=== PATIENT | female | born 1960 | race Two or more races ===

== ENCOUNTER 2020-05-26 23:53 | Emergency (ER) | payer MEDICAID, OTHER ==
[~2020-05-26] VITALS: Ht 157.5 cm; Wt 79.4 kg
[2020-05-26 23:58] VITALS: BP 130/73
[2020-05-27] MEDS ORDERED: cefTRIAXone SOD 1,000 MG VL IM ONE (03:15)
[2020-05-27] MEDS ORDERED: ACETAMINOPHEN 500 MG TAB PO ONE (03:15)
[2020-05-27 04:01] LABS: Urine Bacteria MOD /hpf (None Seen); Urine Blood Negative /uL (Negative); Urine Mucus FEW (None Seen); Urine Specific Gravity 1.014 (1.001-1.035); Urine WBC 85 /hpf (0 - 5)
== END 2020-05-27 05:00 | disposition home or self-care (01) ==
LOC: ER 23:53
DX: T83.038A Leakage of other urinary catheter, initial encounter (principal); N34.2 Other urethritis; E66.9 Obesity, unspecified; Z46.6 Encounter for fitting and adjustment of urinary device; Z68.32 Body mass index [BMI] 32.0-32.9, adult
CPT/HCPCS: 51702; 81001; 96372; 99284; J0696

== ENCOUNTER 2020-06-17 11:37 | Emergency (ER) | payer MEDICAID ==
[~2020-06-17] VITALS: Ht 157.5 cm; Wt 79.4 kg
[2020-06-17 11:55] VITALS: BP 121/68
== END 2020-06-17 13:53 | disposition home or self-care (01) ==
LOC: ER 11:37
DX: F31.9 Bipolar disorder, unspecified (principal); Z76.0 Encounter for issue of repeat prescription

== ENCOUNTER 2020-07-17 18:48 | Inpatient (IN) | payer MEDICAID ==
[~2020-07-17] VITALS: Ht 157.5 cm; Wt 96.1 kg
[2020-07-17] MEDS ORDERED: SODIUM CHLORIDE 0.9% 1,000 ML IV ONE ×2 (19:30→22:00)
[2020-07-17 20:00] LABS: Basophils # (auto) 0.1 10 ^3/uL (0-0.2); Basophils % (auto) 0.6 % (0.0-2.0); Eosinophils # (auto) 0.2 10 ^3/uL (0-0.8); Eosinophils % (auto) 1.6 % (0.0-7.0); Hematocrit 38.5 % (36.0-46.0); Hemoglobin 12.8 g/dL (12.2-16.2); Lymphocytes # (auto) 4.7 10 ^3/uL (0.4-5.4); Lymphocytes % (auto) 47.8 % (10.0-50.0); Mean Corpuscular Hemoglobin 27.8 pg (28.0-32.0); Mean Corpuscular Hgb Conc. 33.3 g/dL (32.0-36.0); Mean Corpuscular Volume 83.5 fL (80.0-100.0); Monocytes # (auto) 0.9 10 ^3/uL (0-1.3); Monocytes % (auto) 8.9 % (0.0-12.0); Neutrophils # (auto) 4.1 10 ^3/uL (1.6-8.6); Neutrophils % (auto) 41.1 % (37.0-80.0); Nucleated Red Blood Cells % 0.2 %; Platelet Count (auto) 221 10^3/uL (140-450); Red Blood Cells 4.61 10^6/uL (4.0-5.20); Red Cell Distribution Width 15.2 % (11.8-14.3); White Blood Cell 9.9 10^3/uL (4.4-10.8)
[2020-07-17] MEDS ORDERED: fentaNYL CITRATE 100 MCG/2 ML VL IV ONE (20:00)
[2020-07-17] MEDS ORDERED: ONDANSETRON HCL 4 MG/2 ML VIAL IV ONE (20:00)
[2020-07-17 20:22] LABS: Albumin 3.3 g/dL (3.4-5.0); Anion Gap 11 (5-15); Blood Urea Nitrogen 21 mg/dL (7-18); Calcium 9.2 mg/dL (8.5-10.1); Carbon Dioxide 22 mmol/L (21-32); Chloride 109 mmol/L (98-107); Glucose 106 mg/dL (74-106); Lipase 88 U/L (73-393); Magnesium 2.2 mg/dL (1.6-2.6); Potassium 4.1 mmol/L (3.5-5.1); Sodium 142 mmol/L (136-145)
[2020-07-17 20:26] LABS: Lactic Acid w/Reflex 4.6 mmol/L (0.4-2.0)
[2020-07-17 20:28] LABS: Alanine Aminotransferase 13 U/L (13-56); Alkaline Phosphatase 79 U/L (45-117); Aspartate Aminotransferase 15 U/L (15-37); BUN/Creatinine Ratio 24.1; Bilirubin, Total 0.3 mg/dL (0.2-1.0); GFR African American 85 mL/min; GFR Non-African American 71 mL/min
[2020-07-17 20:36] LABS: Urine Bacteria NONE SEEN /hpf (None Seen); Urine Blood 3+ /uL (Negative); Urine Specific Gravity 1.007 (1.001-1.035); Urine WBC 118 /hpf (0 - 5); Urine WBC Clumps PRESENT /hpf (None Seen)
[2020-07-17] MEDS ORDERED: CEFTRIAXONE SODIUM 2 GM in D5W 5% 50 ML IV ONE (21:00)
[2020-07-17] MEDS ORDERED: levoFLOXacin 750MG 150 ML IV ONE (21:15)
[2020-07-17] MEDS ORDERED: NITROGLYCERIN 0.4 MG SL TAB SL PRN (22:00)
[2020-07-17] MEDS ORDERED: ONDANSETRON HCL 4 MG/2 ML VIAL IV PRN (22:00)
[2020-07-17] MEDS ORDERED: MORPHINE SULF INJ 2 MG/ML SYRINGE 1ML IV PRN (22:00)
[2020-07-17] MEDS ORDERED: cefTRIAXone 1GM/50ML D5W 50 ML IV ONE (22:54)
[2020-07-17] MEDS: cefTRIAXone 1GM/50ML D5W 50 ML IV SCH (23:13)
[2020-07-18] MEDS ORDERED: ACETAMINOPHEN 325 MG TAB PO PRN (04:00)
[2020-07-18 06:44] LABS: Basophils # (auto) 0.1 10 ^3/uL (0-0.2); Basophils % (auto) 0.8 % (0.0-2.0); Eosinophils # (auto) 0.2 10 ^3/uL (0-0.8); Eosinophils % (auto) 2.2 % (0.0-7.0); Hematocrit 33.4 % (36.0-46.0); Hemoglobin 11.3 g/dL (12.2-16.2); Lymphocytes # (auto) 2.8 10 ^3/uL (0.4-5.4); Lymphocytes % (auto) 37.3 % (10.0-50.0); Mean Corpuscular Hemoglobin 28.3 pg (28.0-32.0); Mean Corpuscular Hgb Conc. 33.9 g/dL (32.0-36.0); Mean Corpuscular Volume 83.5 fL (80.0-100.0); Monocytes # (auto) 0.7 10 ^3/uL (0-1.3); Monocytes % (auto) 9.5 % (0.0-12.0); Neutrophils # (auto) 3.8 10 ^3/uL (1.6-8.6); Neutrophils % (auto) 50.2 % (37.0-80.0); Nucleated Red Blood Cells % 0.1 %; Platelet Count (auto) 195 10^3/uL (140-450); Red Cell Distribution Width 14.7 % (11.8-14.3); White Blood Cell 7.6 10^3/uL (4.4-10.8)
[2020-07-18 07:02] LABS: BUN/Creatinine Ratio 20.7; Calcium 8.6 mg/dL (8.5-10.1); Potassium 4.2 mmol/L (3.5-5.1)
[2020-07-18 08:58] VITALS: BP 124/58
[2020-07-18] MEDS: ENOXAPARIN SOD 40 MG/0.4 ML SYRINGE SC SCH ×2 (09:32→10:13)
[2020-07-18] MEDS ORDERED: HYDROcodone-ACET 5/325MG TAB PO PRN (09:45)
[2020-07-18] MEDS ORDERED: GABA300C10 PO (09:54)
[2020-07-18] MEDS ORDERED: PANT40T PO (09:54)
[2020-07-18] MEDS ORDERED: TRAZ50TA2 PO (09:54)
[2020-07-18] MEDS ORDERED: RIS1T PO ×2 (09:54)
[2020-07-18] MEDS ORDERED: DIVA250T4 PO ×2 (09:54)
[2020-07-18] MEDS ORDERED: LEVO25TA6 PO (09:54)
[2020-07-18] MEDS: cefTRIAXone 1GM/50ML D5W 50 ML IV SCH (10:14)
[2020-07-18 12:30] VITALS: BP 123/56
[2020-07-18 16:30] VITALS: BP 136/71
[2020-07-18] MEDS ORDERED: LEVO500T31 PO (18:21)
[2020-07-18 18:25] VITALS: BP 136/71
== END 2020-07-18 19:02 | disposition home health service (06) | DRG 466 ==
LOC: ER 18:48 → TELE 22:06 → TELE-EAST 07-18 08:45 → TELE-CENTR 07-18 11:38
PROVIDERS: ADMIT Hospitalist; ATTEND Hospitalist
PROC: 0T2BX0Z Change Drainage Device in Bladder, External Approach (ICD-10-PCS; principal; 2020-07-17)
DX: T83.511A Infection and inflammatory reaction due to indwelling urethral catheter, initial encounter (principal); G62.9 Polyneuropathy, unspecified; Z20.822 Contact with and (suspected) exposure to COVID-19; E03.9 Hypothyroidism, unspecified; F31.9 Bipolar disorder, unspecified; R53.81 Other malaise; G89.29 Other chronic pain; N39.498 Other specified urinary incontinence; F41.9 Anxiety disorder, unspecified; Z83.3 Family history of diabetes mellitus; Z99.3 Dependence on wheelchair; Z88.8 Allergy status to other drugs, medicaments and biological substances
CPT/HCPCS: 36415; 51702; 80048; 80053; 81001; 83605; 83690; 83735; 84484; 85025; 87040; 87086; 87088; 87186; 87426; 93005; 96361; 96365; 96366; 96375; G0378; J0696; J1956; J2405; J7060

== ENCOUNTER 2021-06-29 20:38 | Emergency (ER) | payer MEDICAID ==
[~2021-06-29] VITALS: Ht 157.5 cm; Wt 113.4 kg
[~2021-06-29 20:38] MED LIST: DIVA250T4 PO; GABA300C10 PO; LEVO25TA6 PO; LEVO500T31 PO; PANT40T PO; RIS1T PO; TRAZ50TA2 PO
[2021-06-29] MEDS ORDERED: SODIUM CHLORIDE 0.9% 500 ML IV ONE (21:00)
[2021-06-29 21:59] LABS: Basophils # (auto) 0 10 ^3/uL (0-0.2); Basophils % (auto) 0.6 % (0.0-2.0); Eosinophils # (auto) 0.2 10 ^3/uL (0-0.8); Eosinophils % (auto) 2.4 % (0.0-7.0); Hematocrit 38.2 % (36.0-46.0); Hemoglobin 12.8 g/dL (12.2-16.2); Lymphocytes # (auto) 3.8 10 ^3/uL (0.4-5.4); Lymphocytes % (auto) 43.8 % (10.0-50.0); Mean Corpuscular Hemoglobin 28.7 pg (28.0-32.0); Mean Corpuscular Hgb Conc. 33.6 g/dL (32.0-36.0); Mean Corpuscular Volume 85.5 fL (80.0-100.0); Monocytes # (auto) 0.9 10 ^3/uL (0-1.3); Neutrophils # (auto) 3.7 10 ^3/uL (1.6-8.6); Neutrophils % (auto) 43.2 % (37.0-80.0); Nucleated Red Blood Cells % 0.3 %; Red Blood Cells 4.47 10^6/uL (4.0-5.20); Red Cell Distribution Width 15.1 % (11.8-14.3); White Blood Cell 8.6 10^3/uL (4.4-10.8)
[2021-06-29 22:04] LABS: Urine Amorphous Crystal FEW /hpf (None Seen); Urine Bacteria MANY /hpf (None Seen); Urine Blood 1+ /uL (Negative); Urine Specific Gravity 1.006 (1.001-1.035); Urine WBC 14 /hpf (0 - 5)
[2021-06-29 22:17] LABS: Albumin 3.2 g/dL (3.4-5.0); Calcium 9.3 mg/dL (8.5-10.1); Potassium 3.8 mmol/L (3.5-5.1)
[2021-06-29 22:20] LABS: BUN/Creatinine Ratio 25.3
[2021-06-29 22:23] LABS: Bilirubin, Total 0.2 mg/dL (0.2-1.0); Total Protein 7.3 g/dL (6.4-8.2)
[2021-06-30] MEDS ORDERED: CEPH-322 PO (00:32)
[2021-06-30 00:50] VITALS: BP 111/70
== END 2021-06-30 01:24 | disposition home or self-care (01) ==
LOC: ER 20:38
DX: Z46.6 Encounter for fitting and adjustment of urinary device (principal); N39.0 Urinary tract infection, site not specified; E03.9 Hypothyroidism, unspecified; Z79.899 Other long term (current) drug therapy; Z88.8 Allergy status to other drugs, medicaments and biological substances
CPT/HCPCS: 36415; 80053; 81001; 85025; 93970; 96360; 99284; J7040

== ENCOUNTER 2022-04-05 14:38 | Emergency (ER) | payer MEDICAID ==
[~2022-04-05] VITALS: Ht 157.5 cm; Wt 89.0 kg
[~2022-04-05 14:38] MED LIST changes: +CEPH-322 PO
[2022-04-05 20:02] VITALS: BP 154/84
== END 2022-04-05 20:04 | disposition home or self-care (01) ==
LOC: ER 14:44
DX: Z46.6 Encounter for fitting and adjustment of urinary device (principal); E03.9 Hypothyroidism, unspecified; Z79.2 Long term (current) use of antibiotics; Z79.899 Other long term (current) drug therapy; Z88.8 Allergy status to other drugs, medicaments and biological substances
CPT/HCPCS: 51702

== ENCOUNTER 2022-06-04 19:42 | Inpatient (IN) | payer MEDICAID ==
[~2022-06-04] VITALS: Ht 157.5 cm; Wt 111.9 kg
[2022-06-04 20:44] LABS: Urine Bacteria MANY /hpf (None Seen); Urine Blood 1+ /uL (Negative); Urine Mucus FEW (None Seen); Urine Specific Gravity 1.023 (1.001-1.035); Urine WBC 133 /hpf (0 - 5)
[2022-06-05] MEDS ORDERED: cefTRIAXone 1GM/50ML D5W 50 ML IV ONE (07:15)
[2022-06-05 07:50] LABS: Basophils # (auto) 0 10 ^3/uL (0-0.2); Basophils % (auto) 0.5 % (0.0-2.0); Eosinophils # (auto) 0.2 10 ^3/uL (0-0.8); Eosinophils % (auto) 1.7 % (0.0-7.0); Hematocrit 45.6 % (36.0-46.0); Hemoglobin 15.2 g/dL (12.2-16.2); Lymphocytes # (auto) 4.6 10 ^3/uL (0.4-5.4); Lymphocytes % (auto) 49.3 % (10.0-50.0); Mean Corpuscular Hemoglobin 29.4 pg (28.0-32.0); Mean Corpuscular Hgb Conc. 33.4 g/dL (32.0-36.0); Mean Corpuscular Volume 87.9 fL (80.0-100.0); Monocytes % (auto) 10.2 % (0.0-12.0); Neutrophils # (auto) 3.6 10 ^3/uL (1.6-8.6); Neutrophils % (auto) 38.3 % (37.0-80.0); Nucleated Red Blood Cells % 0.2 %; Red Blood Cells 5.19 10^6/uL (4.0-5.20); Red Cell Distribution Width 14.8 % (11.8-14.3); White Blood Cell 9.4 10^3/uL (4.4-10.8)
[2022-06-05 08:03] LABS: Albumin 3.8 g/dL (3.4-5.0); Calcium 8.8 mg/dL (8.5-10.1); Potassium 3.9 mmol/L (3.5-5.1)
[2022-06-05 08:07] LABS: BUN/Creatinine Ratio 22.9; Bilirubin, Total 0.6 mg/dL (0.2-1.0)
[2022-06-05] MEDS ORDERED: ACETAMINOPHEN 500 MG TAB PO PRN (16:15)
[2022-06-05] MEDS: HYDROcodone-ACET 5/325MG TAB PO PRN (16:32)
[2022-06-05] MEDS: SODIUM CHLORIDE 0.9% 1,000 ML IV SCH (16:32)
[2022-06-05 18:42] LABS: Urine Bacteria MOD /hpf (None Seen); Urine Blood 1+ /uL (Negative); Urine Mucus FEW (None Seen); Urine Specific Gravity 1.022 (1.001-1.035); Urine WBC 191 /hpf (0 - 5)
[2022-06-05] MEDS: risperiDONE 1 MG TAB PO SCH (19:51)
[2022-06-05] MEDS: MORPHINE SULFATE INJ 2 MG/ml SYRG IV PRN (19:52)
[2022-06-05] MEDS: DOCUSATE SOD 100 MG CAP PO SCH (22:23)
[2022-06-05] MEDS: traZODone HCL 50 MG TAB PO SCH (22:24)
[2022-06-06] MEDS: ONDANSETRON HCL 4 MG/2 ML VIAL IV PRN (00:07)
[2022-06-06] MEDS: MORPHINE SULFATE INJ 2 MG/ml SYRG IV PRN (00:08)
[2022-06-06] MEDS: SODIUM CHLORIDE 0.9% 1,000 ML IV SCH ×2 (05:29→22:41)
[2022-06-06] MEDS: LEVOTHYROXINE SODIUM 25 MCG TAB PO SCH (06:58)
[2022-06-06 08:39] LABS: Basophils # (auto) 0 10 ^3/uL (0-0.2); Basophils % (auto) 0.7 % (0.0-2.0); Eosinophils # (auto) 0.2 10 ^3/uL (0-0.8); Eosinophils % (auto) 3.6 % (0.0-7.0); Hematocrit 40.1 % (36.0-46.0); Hemoglobin 13.5 g/dL (12.2-16.2); Lymphocytes # (auto) 2.5 10 ^3/uL (0.4-5.4); Mean Corpuscular Hemoglobin 29.7 pg (28.0-32.0); Mean Corpuscular Hgb Conc. 33.8 g/dL (32.0-36.0); Mean Corpuscular Volume 88.1 fL (80.0-100.0); Monocytes # (auto) 0.7 10 ^3/uL (0-1.3); Monocytes % (auto) 12.4 % (0.0-12.0); Neutrophils % (auto) 37.3 % (37.0-80.0); Nucleated Red Blood Cells % 0.3 %; Red Blood Cells 4.55 10^6/uL (4.0-5.20); Red Cell Distribution Width 14.9 % (11.8-14.3); White Blood Cell 5.4 10^3/uL (4.4-10.8)
[2022-06-06 10:13] LABS: BUN/Creatinine Ratio 18.9; Calcium 8.1 mg/dL (8.5-10.1); Potassium 3.8 mmol/L (3.5-5.1)
[2022-06-06] MEDS: ERTAPENEM SOD INJ 1 GM in SODIUM CHL 0.9% 50 ML IV SCH (10:51)
[2022-06-06] MEDS: DOCUSATE SOD 100 MG CAP PO SCH ×2 (10:51→22:12)
[2022-06-06] MEDS: risperiDONE 1 MG TAB PO SCH ×2 (10:52→18:06)
[2022-06-06] MEDS: HYDROcodone-ACET 5/325MG TAB PO PRN ×2 (14:21→20:41)
[2022-06-06 22:00] VITALS: BP 106/60
[2022-06-06] MEDS: traZODone HCL 50 MG TAB PO SCH (22:13)
[2022-06-07] MEDS: MORPHINE SULFATE INJ 2 MG/ml SYRG IV PRN ×2 (00:31→09:28)
[2022-06-07] MEDS ORDERED: CYCL-611 PO (01:29)
[2022-06-07] MEDS ORDERED: TRAZ100T3 PO (01:29)
[2022-06-07 05:00] VITALS: BP 120/64
[2022-06-07] MEDS: LEVOTHYROXINE SODIUM 25 MCG TAB PO SCH (06:35)
[2022-06-07] MEDS: HYDROcodone-ACET 5/325MG TAB PO PRN ×2 (06:35→13:32)
[2022-06-07 08:00] VITALS: BP 132/64
[2022-06-07] MEDS: ERTAPENEM SOD INJ 1 GM in SODIUM CHL 0.9% 50 ML IV SCH (09:24)
[2022-06-07] MEDS: DOCUSATE SOD 100 MG CAP PO SCH ×2 (09:25→21:37)
[2022-06-07] MEDS: risperiDONE 1 MG TAB PO SCH ×2 (09:26→17:58)
[2022-06-07 12:00] VITALS: BP 137/69
[2022-06-07] MEDS: SODIUM CHLORIDE 0.9% 1,000 ML IV SCH (12:10)
[2022-06-07] MEDS ORDERED: POLYETHYLENE GLYCOL 17 GM PWDR PO ONE (13:00)
[2022-06-07] MEDS: CYCLOBENZAPRINE HCL 10 MG TAB PO SCH ×2 (13:32→21:37)
[2022-06-07 16:00] VITALS: BP 135/66
[2022-06-07] MEDS: traZODone HCL 50 MG TAB PO SCH (21:37)
[2022-06-07 22:00] VITALS: BP 126/68
[2022-06-08] MEDS: MORPHINE SULFATE INJ 2 MG/ml SYRG IV PRN (00:44)
[2022-06-08] MEDS: SODIUM CHLORIDE 0.9% 1,000 ML IV SCH ×2 (00:44→18:36)
[2022-06-08 05:00] VITALS: BP 129/67
[2022-06-08] MEDS: LEVOTHYROXINE SODIUM 25 MCG TAB PO SCH (06:25)
[2022-06-08] MEDS: CYCLOBENZAPRINE HCL 10 MG TAB PO SCH ×3 (06:25→21:49)
[2022-06-08 09:00] VITALS: BP 131/76
[2022-06-08] MEDS: ERTAPENEM SOD INJ 1 GM in SODIUM CHL 0.9% 50 ML IV SCH (10:10)
[2022-06-08] MEDS: POLYETHYLENE GLYCOL 17 GM PWDR PO SCH (10:10)
[2022-06-08] MEDS: risperiDONE 1 MG TAB PO SCH ×2 (10:11→18:35)
[2022-06-08] MEDS: DOCUSATE SOD 100 MG CAP PO SCH ×2 (10:11→21:54)
[2022-06-08 13:00] VITALS: BP 127/58
[2022-06-08 17:00] VITALS: BP 128/74
[2022-06-08] MEDS: HYDROcodone-ACET 5/325MG TAB PO PRN (18:36)
[2022-06-08] MEDS: traZODone HCL 50 MG TAB PO SCH (21:49)
[2022-06-08 22:00] VITALS: BP 120/67
[2022-06-09] MEDS: SODIUM CHLORIDE 0.9% 1,000 ML IV SCH ×3 (00:15→22:01)
[2022-06-09] MEDS: MORPHINE SULFATE INJ 2 MG/ml SYRG IV PRN ×3 (00:55→20:58)
[2022-06-09 05:00] VITALS: BP 144/77
[2022-06-09] MEDS: CYCLOBENZAPRINE HCL 10 MG TAB PO SCH ×3 (05:55→21:56)
[2022-06-09] MEDS: LEVOTHYROXINE SODIUM 25 MCG TAB PO SCH (05:56)
[2022-06-09 09:00] VITALS: BP 122/75
[2022-06-09] MEDS: POLYETHYLENE GLYCOL 17 GM PWDR PO SCH (09:21)
[2022-06-09] MEDS: DOCUSATE SOD 100 MG CAP PO SCH ×2 (09:21→21:56)
[2022-06-09] MEDS: risperiDONE 1 MG TAB PO SCH ×2 (09:23→17:57)
[2022-06-09] MEDS: ERTAPENEM SOD INJ 1 GM in SODIUM CHL 0.9% 50 ML IV SCH (09:24)
[2022-06-09 13:00] VITALS: BP 138/72
[2022-06-09] MEDS: HYDROcodone-ACET 5/325MG TAB PO PRN (16:17)
[2022-06-09 17:00] VITALS: BP 137/79
[2022-06-09] MEDS: traZODone HCL 50 MG TAB PO SCH (21:57)
[2022-06-09 22:00] VITALS: BP 131/48
[2022-06-10 05:00] VITALS: BP 124/51
[2022-06-10] MEDS: CYCLOBENZAPRINE HCL 10 MG TAB PO SCH ×3 (05:09→22:27)
[2022-06-10] MEDS: HYDROcodone-ACET 5/325MG TAB PO PRN ×2 (05:09→12:49)
[2022-06-10] MEDS: LEVOTHYROXINE SODIUM 25 MCG TAB PO SCH (06:21)
[2022-06-10 09:00] VITALS: BP 129/73
[2022-06-10] MEDS: risperiDONE 1 MG TAB PO SCH ×2 (10:33→18:24)
[2022-06-10] MEDS: DOCUSATE SOD 100 MG CAP PO SCH ×2 (10:33→22:26)
[2022-06-10] MEDS: POLYETHYLENE GLYCOL 17 GM PWDR PO SCH (10:34)
[2022-06-10 13:00] VITALS: BP 119/74
[2022-06-10] MEDS: MORPHINE SULFATE INJ 2 MG/ml SYRG IV PRN ×2 (14:29→22:34)
[2022-06-10] MEDS: ERTAPENEM SOD INJ 1 GM in SODIUM CHL 0.9% 50 ML IV SCH (14:30)
[2022-06-10 15:26] LABS: Hepatitis C Antibody Negative (Negative)
[2022-06-10] MEDS: SODIUM CHLORIDE 0.9% 1,000 ML IV SCH (16:15)
[2022-06-10 17:00] VITALS: BP 126/80
[2022-06-10 22:00] VITALS: BP_SYST 141; BP_SYST 150; BP_DIAS 78; BP_DIAS 79
[2022-06-10] MEDS: traZODone HCL 50 MG TAB PO SCH (22:27)
[2022-06-10] MEDS: ONDANSETRON HCL 4 MG/2 ML VIAL IV PRN (22:28)
[2022-06-11] MEDS: ONDANSETRON HCL 4 MG/2 ML VIAL IV PRN (04:29)
[2022-06-11] MEDS: MORPHINE SULFATE INJ 2 MG/ml SYRG IV PRN (04:33)
[2022-06-11 05:00] VITALS: BP 118/78
[2022-06-11] MEDS: LEVOTHYROXINE SODIUM 25 MCG TAB PO SCH (06:06)
[2022-06-11] MEDS: CYCLOBENZAPRINE HCL 10 MG TAB PO SCH ×2 (06:06→14:08)
[2022-06-11] MEDS: SODIUM CHLORIDE 0.9% 1,000 ML IV SCH (06:08)
[2022-06-11 09:00] VITALS: BP 125/86
[2022-06-11] MEDS ORDERED: NITR-87 PO (09:23)
[2022-06-11] MEDS: DOCUSATE SOD 100 MG CAP PO SCH (10:04)
[2022-06-11] MEDS: POLYETHYLENE GLYCOL 17 GM PWDR PO SCH (10:05)
[2022-06-11] MEDS: ERTAPENEM SOD INJ 1 GM in SODIUM CHL 0.9% 50 ML IV SCH (10:05)
[2022-06-11] MEDS: risperiDONE 1 MG TAB PO SCH (10:05)
[2022-06-11] MEDS: HYDROcodone-ACET 5/325MG TAB PO PRN (14:09)
== END 2022-06-11 17:59 | disposition home or self-care (01) | DRG 463 ==
LOC: ER 19:42 → OVERFLOW 06-05 16:07 → EAST 06-06 21:28
PROVIDERS: ADMIT Nurse Practitioner Acute Care; ATTEND Nurse Practitioner Acute Care
PROC: 0T2BX0Z Change Drainage Device in Bladder, External Approach (ICD-10-PCS; principal; 2022-06-06)
DX: N30.90 Cystitis, unspecified without hematuria (principal); E66.9 Obesity, unspecified; F31.9 Bipolar disorder, unspecified; G24.01 Drug induced subacute dyskinesia; F41.9 Anxiety disorder, unspecified; G89.29 Other chronic pain; M54.9 Dorsalgia, unspecified; Z16.24 Resistance to multiple antibiotics; Z79.899 Other long term (current) drug therapy; Z68.42 Body mass index [BMI] 45.0-49.9, adult; Z83.3 Family history of diabetes mellitus; Z87.440 Personal history of urinary (tract) infections; Z20.822 Contact with and (suspected) exposure to COVID-19
CPT/HCPCS: 36415; 71045; 80048; 80053; 81001; 85025; 86803; 87086; 87340; 87426; 96361; 96365; 96366; G0378; J0696; J1335; J2405

== ENCOUNTER 2023-03-31 17:35 | Inpatient (IN) | payer MEDICAID ==
[~2023-03-31] VITALS: Ht 157.5 cm; Wt 113.9 kg
[~2023-03-31 17:35] MED LIST changes: -CEPH-322 PO; +CEPH250C PO; +CYCL-611 PO; +GABA-1250 PO; -GABA300C10 PO; +NITR-87 PO; +TRAZ-227 PO; +TRAZ-228 PO; -TRAZ50TA2 PO
[2023-03-31 19:15] LABS: Urine Amorphous Crystal FEW /hpf (None Seen); Urine Bacteria NONE SEEN /hpf (None Seen); Urine Blood 3+ /uL (Negative); Urine Budding Yeast MANY /hpf (None Seen); Urine Clarity HAZY (Clear); Urine Color Yellow (Yellow); Urine Mucus MODERATE (None Seen); Urine Protein, UAD 1+ (Negative); Urine Specific Gravity 1.017 (1.001-1.035); Urine Urobilinogen Normal (Negative); Urine WBC 143 /hpf (0 - 5); Urine WBC Clumps PRESENT /hpf (None Seen)
[2023-03-31 19:24] LABS: COVID19 ANTIGEN SOFIA FIA NEGATIVE (NEGATIVE)
[2023-03-31 19:30] LABS: Basophils # (auto) 0 10 ^3/uL (0-0.2); Basophils % (auto) 0.5 % (0.0-2.0); Eosinophils # (auto) 0.3 10 ^3/uL (0-0.8); Hematocrit 43.2 % (36.0-46.0); Hemoglobin 14.2 g/dL (12.2-16.2); Lymphocytes # (auto) 1.9 10 ^3/uL (0.4-5.4); Lymphocytes % (auto) 24.8 % (10.0-50.0); Mean Corpuscular Hemoglobin 28.1 pg (28.0-32.0); Mean Corpuscular Hgb Conc. 32.8 g/dL (32.0-36.0); Mean Corpuscular Volume 85.6 fL (80.0-100.0); Monocytes # (auto) 0.9 10 ^3/uL (0-1.3); Monocytes % (auto) 11.3 % (0.0-12.0); Neutrophils # (auto) 4.5 10 ^3/uL (1.6-8.6); Neutrophils % (auto) 59.4 % (37.0-80.0); Nucleated Red Blood Cells % 0.1 %; Red Blood Cells 5.05 10^6/uL (4.0-5.20); Red Cell Distribution Width 15.6 % (11.8-14.3); White Blood Cell 7.6 10^3/uL (4.4-10.8)
[2023-03-31 19:51] LABS: Alanine Aminotransferase 18 U/L (7-40); Albumin 4.4 g/dL (3.2-4.8); Alkaline Phosphatase 68 U/L (46-116); Anion Gap 8 (5-15); Aspartate Aminotransferase 12 U/L (13-40); BUN/Creatinine Ratio 10.2 (10.0-20.0); Bilirubin, Total 0.7 mg/dL (0.2-1.0); Blood Urea Nitrogen 9 mg/dL (9-23); Calcium 9.7 mg/dL (8.5-10.1); Carbon Dioxide 24 mmol/L (20-30); Chloride 109 mmol/L (98-107); Glucose 97 mg/dL (74-106); Potassium 3.6 mmol/L (3.5-5.1); Sodium 141 mmol/L (136-145); Total Protein 6.9 g/dL (5.7-8.2)
[2023-03-31] MEDS ORDERED: ALBUTEROL MEDNEB 2.5 mg/3ml NEB NEB ONE (21:00)
[2023-03-31] MEDS ORDERED: IPRATROPIUM BROM 0.5 MG/2.5ML INH SOL NEB ONE (21:00)
[2023-03-31] MEDS ORDERED: ASPirin 81 mg TAB PO ONE (21:00)
[2023-03-31] MEDS ORDERED: predniSONE 20 MG TAB PO ONE (21:15)
[2023-03-31] MEDS ORDERED: guaiFENesin-DM 100/10mg/5ml SYR PO ONE (21:15)
[2023-03-31] MEDS ORDERED: LORazepam 0.5 MG TAB PO ONE (21:15)
[2023-03-31 21:45] LABS: INR 0.96 (0.9-1.15); Partial Thromboplastin Time 26.2 SEC (24.5-34.5); Prothrombin Time 10.1 sec (9.3-11.8)
[2023-03-31 22:49] VITALS: O2SAT 94
[2023-03-31] MEDS ORDERED: AZITHROMYCIN 500MG/ 250ML 250 ML IV ONE (23:30)
[2023-03-31] MEDS ORDERED: cefTRIAXone 1GM/50ML D5W 50 ML IV ONE (23:30)
[2023-03-31] MEDS ORDERED: ONDANSETRON HCL 4 MG/2 ML VIAL IV PRN (23:45)
[2023-03-31] MEDS ORDERED: DOCUSATE SOD 100 MG CAP PO PRN (23:45)
[2023-03-31] MEDS ORDERED: NITROGLYCERIN 0.4 MG SL TAB SL PRN (23:45)
[2023-03-31] MEDS ORDERED: MORPHINE SULFATE INJ 2 MG/ml SYRG IV PRN (23:45)
[2023-04-01] VITALS (10 sets, daily range): BP systolic 131–150; BP diastolic 68–81; PULSE 71–113; RESP 16–26; TEMP 97.2–98.5; O2SAT 94–100
[2023-04-01] MEDS ORDERED: LEVALBUTEROL HCL 1.25 MG/3 ML NEB NEB SCH
[2023-04-01] MEDS ORDERED: ALBUTEROL MEDNEB 2.5 mg/3ml NEB NEB SCH
[2023-04-01] MEDS ORDERED: guaiFENesin 200 MG/10 ML UD GT PRN (00:15)
[2023-04-01] MEDS: ACETAMINOPHEN 325 MG TAB PO PRN (01:20)
[2023-04-01 05:02] LABS: Basophils # (auto) 0 10 ^3/uL (0-0.2); Basophils % (auto) 0.4 % (0.0-2.0); Eosinophils # (auto) 0 10 ^3/uL (0-0.8); Eosinophils % (auto) 0.3 % (0.0-7.0); Hematocrit 43.2 % (36.0-46.0); Hemoglobin 14.2 g/dL (12.2-16.2); Lymphocytes # (auto) 1.4 10 ^3/uL (0.4-5.4); Lymphocytes % (auto) 20.6 % (10.0-50.0); Mean Corpuscular Hemoglobin 27.9 pg (28.0-32.0); Mean Corpuscular Hgb Conc. 32.9 g/dL (32.0-36.0); Mean Corpuscular Volume 84.7 fL (80.0-100.0); Monocytes # (auto) 0.2 10 ^3/uL (0-1.3); Monocytes % (auto) 3.2 % (0.0-12.0); Neutrophils % (auto) 75.5 % (37.0-80.0); Nucleated Red Blood Cells % 0.2 %; Red Cell Distribution Width 15.6 % (11.8-14.3); White Blood Cell 6.6 10^3/uL (4.4-10.8)
[2023-04-01 05:17] LABS: Alanine Aminotransferase 14 U/L (7-40); Albumin 4.5 g/dL (3.2-4.8); Alkaline Phosphatase 68 U/L (46-116); Anion Gap 8 (5-15); Aspartate Aminotransferase 10 U/L (13-40); BUN/Creatinine Ratio 11.5 (10.0-20.0); Blood Urea Nitrogen 10 mg/dL (9-23); Calcium 9.2 mg/dL (8.7-10.4); Carbon Dioxide 26 mmol/L (20-30); Chloride 106 mmol/L (98-107); Glucose 133 mg/dL (74-106); Potassium 3.9 mmol/L (3.5-5.1); Sodium 140 mmol/L (136-145)
[2023-04-01 05:18] LABS: Bilirubin, Total 0.7 mg/dL (0.2-1.0); Total Protein 7.1 g/dL (5.7-8.2)
[2023-04-01] MEDS: LEVALBUTEROL HCL 1.25 MG/3 ML NEB NEB SCH ×3 (06:12→19:03)
[2023-04-01] MEDS: IPRATROPIUM BROM 0.5 MG/2.5ML INH SOL NEB SCH ×3 (06:12→19:03)
[2023-04-01] MEDS: LEVOTHYROXINE SODIUM 25 MCG TAB PO SCH (07:10)
[2023-04-01] MEDS: CYCLOBENZAPRINE HCL 10 MG TAB PO SCH ×3 (07:10→21:55)
[2023-04-01] MEDS ORDERED: ERTAPENEM SOD INJ 1 GM in SODIUM CHL 0.9% 50 ML IV SCH (10:00)
[2023-04-01] MEDS: PANTOPRAZOLE 40 MG TAB PO SCH (10:56)
[2023-04-01] MEDS: methylPREDNISolone SOD SUCC 40 MG/ML VL IV SCH ×2 (10:56→21:54)
[2023-04-01] MEDS: guaiFENesin 200 MG/10 ML UD PO PRN (13:13)
[2023-04-01] MEDS ORDERED: ALBUTEROL MEDNEB 2.5 mg/3ml NEB NEB PRN (13:30)
[2023-04-01] MEDS ORDERED: IPRATROPIUM BROM 0.5 MG/2.5ML INH SOL NEB PRN (13:30)
[2023-04-01] MEDS ORDERED: AZITHROMYCIN 500MG/ 250ML 250 ML IV ONE (16:15)
[2023-04-01] MEDS ORDERED: LEVALBUTEROL HCL 1.25 MG/3 ML NEB ONE (19:00)
[2023-04-01] MEDS ORDERED: IPRATROPIUM BROM 0.5 MG/2.5ML INH SOL ONE (19:01)
[2023-04-01] MEDS: MEROPENEM 1GM IVPB 100 ML IV SCH (21:54)
[2023-04-01] MEDS: risperiDONE 1 MG TAB PO SCH (21:55)
[2023-04-01] MEDS: traZODone HCL 50 MG TAB PO SCH (21:55)
[2023-04-02] VITALS (13 sets, daily range): BP systolic 112–132; BP diastolic 59–68; PULSE 81–106; RESP 18–24; TEMP 97.5–98.1; O2SAT 94–100
[2023-04-02] MEDS: LEVOTHYROXINE SODIUM 25 MCG TAB PO SCH (05:53)
[2023-04-02] MEDS: CYCLOBENZAPRINE HCL 10 MG TAB PO SCH ×3 (05:53→21:48)
[2023-04-02] MEDS: ACETAMINOPHEN 325 MG TAB PO PRN (05:53)
[2023-04-02] MEDS: MEROPENEM 1GM IVPB 100 ML IV SCH ×3 (05:55→21:40)
[2023-04-02] MEDS: IPRATROPIUM BROM 0.5 MG/2.5ML INH SOL NEB SCH ×3 (06:26→19:21)
[2023-04-02] MEDS: LEVALBUTEROL HCL 1.25 MG/3 ML NEB NEB SCH ×3 (06:28→19:22)
[2023-04-02 07:25] LABS: Hematocrit 40.9 % (36.0-46.0); Hemoglobin 13.5 g/dL (12.2-16.2); Mean Corpuscular Hemoglobin 28.2 pg (28.0-32.0); Mean Corpuscular Hgb Conc. 33.1 g/dL (32.0-36.0); Mean Corpuscular Volume 85.2 fL (80.0-100.0); Red Cell Distribution Width 15.4 % (11.8-14.3)
[2023-04-02 07:36] LABS: Alanine Aminotransferase 10 U/L (7-40); Albumin 4.3 g/dL (3.2-4.8); Alkaline Phosphatase 58 U/L (46-116); Anion Gap 7 (5-15); Aspartate Aminotransferase < 8 U/L (13-40); BUN/Creatinine Ratio 17.6 (10.0-20.0); Bilirubin, Total 0.3 mg/dL (0.2-1.0); Blood Urea Nitrogen 15 mg/dL (9-23); Calcium 9.2 mg/dL (8.7-10.4); Carbon Dioxide 27 mmol/L (20-30); Chloride 107 mmol/L (98-107); Glucose 163 mg/dL (74-106); Potassium 4.5 mmol/L (3.5-5.1); Sodium 141 mmol/L (136-145); Total Protein 6.6 g/dL (5.7-8.2)
[2023-04-02 08:18] LABS: Band Neutrophils % (manual) 0; Basophils % (manual) 0 (0.0-2.0); Blast Cells 0; Eosinophils % (manual) 0 (0-7); Metamyelocytes % 0; Myelocytes % 0; Promyelocytes % 0; Reactive Lymphocytes 0
[2023-04-02] MEDS: methylPREDNISolone SOD SUCC 40 MG/ML VL IV SCH ×2 (11:08→21:40)
[2023-04-02] MEDS: PANTOPRAZOLE 40 MG TAB PO SCH (11:09)
[2023-04-02] MEDS: AZITHROMYCIN 500MG/ 250ML 250 ML IV SCH (11:09)
[2023-04-02 12:49] LABS: Lymphocytes % (manual) 25 (10.0-50.0); Monocytes % (manual) 6 (0-12); Platelet Estimate Adequate
[2023-04-02] MEDS: risperiDONE 1 MG TAB PO SCH (18:39)
[2023-04-02] MEDS: traZODone HCL 50 MG TAB PO SCH (21:40)
[2023-04-02] MEDS: HYDROcodone-ACET 5/325MG TAB PO PRN (21:48)
[2023-04-03] VITALS (12 sets, daily range): BP systolic 113–135; BP diastolic 60–70; PULSE 78–97; RESP 16–20; TEMP 97.7–98; O2SAT 95–100
[2023-04-03] MEDS: HYDROcodone-ACET 5/325MG TAB PO PRN ×2 (06:44→23:52)
[2023-04-03] MEDS: MEROPENEM 1GM IVPB 100 ML IV SCH ×2 (06:45→13:47)
[2023-04-03] MEDS: LEVOTHYROXINE SODIUM 25 MCG TAB PO SCH (06:45)
[2023-04-03] MEDS: CYCLOBENZAPRINE HCL 10 MG TAB PO SCH ×3 (06:45→21:50)
[2023-04-03] MEDS: IPRATROPIUM BROM 0.5 MG/2.5ML INH SOL NEB SCH ×3 (07:26→17:53)
[2023-04-03] MEDS: LEVALBUTEROL HCL 1.25 MG/3 ML NEB NEB SCH ×3 (07:27→17:53)
[2023-04-03 07:39] LABS: Hemoglobin 13.3 g/dL (12.2-16.2); Mean Corpuscular Hemoglobin 28.2 pg (28.0-32.0); Mean Corpuscular Hgb Conc. 32.5 g/dL (32.0-36.0); Mean Corpuscular Volume 86.8 fL (80.0-100.0); Red Blood Cells 4.72 10^6/uL (4.0-5.20); Red Cell Distribution Width 15.7 % (11.8-14.3); White Blood Cell 9.3 10^3/uL (4.4-10.8)
[2023-04-03 07:42] LABS: Band Neutrophils % (manual) 0; Basophils % (manual) 0 (0.0-2.0); Blast Cells 0; Eosinophils % (manual) 0 (0-7); Metamyelocytes % 0; Promyelocytes % 0; Reactive Lymphocytes 0
[2023-04-03 07:43] LABS: Alanine Aminotransferase 13 U/L (7-40); Alkaline Phosphatase 54 U/L (46-116); Anion Gap 6 (5-15); Aspartate Aminotransferase 8 U/L (13-40); BUN/Creatinine Ratio 22.2 (10.0-20.0); Bilirubin, Total 0.2 mg/dL (0.2-1.0); Blood Urea Nitrogen 16 mg/dL (9-23); Calcium 9.1 mg/dL (8.5-10.1); Carbon Dioxide 24 mmol/L (20-30); Chloride 110 mmol/L (98-107); Glucose 157 mg/dL (74-106); Potassium 4.5 mmol/L (3.5-5.1); Sodium 140 mmol/L (136-145); Total Protein 6.2 g/dL (5.7-8.2)
[2023-04-03 09:23] LABS: Hepatitis B Surface Antigen Negative (Negative)
[2023-04-03] MEDS: AZITHROMYCIN 500MG/ 250ML 250 ML IV SCH (09:43)
[2023-04-03] MEDS: methylPREDNISolone SOD SUCC 40 MG/ML VL IV SCH ×2 (09:43→21:49)
[2023-04-03] MEDS: PANTOPRAZOLE 40 MG TAB PO SCH (09:43)
[2023-04-03 09:46] LABS: Hepatitis C Antibody Negative (Negative)
[2023-04-03 09:54] LABS: Lymphocytes % (manual) 20 (10.0-50.0); Monocytes % (manual) 4 (0-12); Myelocytes % 1; Platelet Estimate Adequate
[2023-04-03] MEDS ORDERED: ALBUTEROL SULF 2.5 MG/0.5ML(0.5%) NEB SOLN NEB PRN (14:45)
[2023-04-03] MEDS: risperiDONE 1 MG TAB PO SCH (17:49)
[2023-04-03] MEDS: ERTAPENEM SOD INJ 1 GM in SODIUM CHL 0.9% 50 ML IV SCH (20:00)
[2023-04-03] MEDS: guaiFENesin 200 MG/10 ML UD PO PRN (21:50)
[2023-04-03] MEDS: traZODone HCL 50 MG TAB PO SCH (21:50)
[2023-04-04] VITALS (13 sets, daily range): BP systolic 112–127; BP diastolic 66–77; PULSE 70–93; RESP 16–20; TEMP 97.5–98.2; O2SAT 94–99
[2023-04-04] MEDS: LEVOTHYROXINE SODIUM 25 MCG TAB PO SCH (05:59)
[2023-04-04] MEDS: CYCLOBENZAPRINE HCL 10 MG TAB PO SCH ×3 (05:59→21:21)
[2023-04-04] MEDS: IPRATROPIUM BROM 0.5 MG/2.5ML INH SOL NEB SCH ×3 (06:50→17:58)
[2023-04-04] MEDS: LEVALBUTEROL HCL 1.25 MG/3 ML NEB NEB SCH ×3 (06:51→17:59)
[2023-04-04 07:15] LABS: Chloride 108 mmol/L (98-107); Potassium 4.7 mmol/L (3.5-5.1); Sodium 141 mmol/L (136-145)
[2023-04-04 07:16] LABS: Anion Gap 9 (5-15); Calcium 9.2 mg/dL (8.5-10.1); Carbon Dioxide 24 mmol/L (20-30)
[2023-04-04 07:22] LABS: BUN/Creatinine Ratio 22.1 (10.0-20.0); Blood Urea Nitrogen 17 mg/dL (9-23); Glucose 207 mg/dL (74-106)
[2023-04-04 07:43] LABS: Hematocrit 42.8 % (36.0-46.0); Hemoglobin 13.9 g/dL (12.2-16.2); Mean Corpuscular Hemoglobin 28.2 pg (28.0-32.0); Mean Corpuscular Hgb Conc. 32.4 g/dL (32.0-36.0); Mean Corpuscular Volume 86.9 fL (80.0-100.0); Red Blood Cells 4.93 10^6/uL (4.0-5.20); Red Cell Distribution Width 15.7 % (11.8-14.3); White Blood Cell 9.9 10^3/uL (4.4-10.8)
[2023-04-04 08:01] LABS: Basophils % (manual) 0 (0.0-2.0); Blast Cells 0; Eosinophils % (manual) 0 (0-7); Promyelocytes % 0; Reactive Lymphocytes 0
[2023-04-04] MEDS: PANTOPRAZOLE 40 MG TAB PO SCH (09:00)
[2023-04-04] MEDS: HYDROcodone-ACET 5/325MG TAB PO PRN ×2 (09:00→17:05)
[2023-04-04] MEDS: methylPREDNISolone SOD SUCC 40 MG/ML VL IV SCH ×2 (09:01→21:21)
[2023-04-04] MEDS: AZITHROMYCIN 500MG/ 250ML 250 ML IV SCH (09:01)
[2023-04-04] MEDS: ERTAPENEM SOD INJ 1 GM in SODIUM CHL 0.9% 50 ML IV SCH (09:06)
[2023-04-04 12:56] LABS: Band Neutrophils % (manual) 1; Lymphocytes % (manual) 21 (10.0-50.0); Metamyelocytes % 1; Monocytes % (manual) 6 (0-12); Myelocytes % 1; Platelet Estimate Adequate
[2023-04-04] MEDS: guaiFENesin 200 MG/10 ML UD PO PRN (13:26)
[2023-04-04] MEDS: risperiDONE 1 MG TAB PO SCH (17:05)
[2023-04-04] MEDS: traZODone HCL 50 MG TAB PO SCH (21:21)
[2023-04-05] VITALS (10 sets, daily range): BP systolic 121–128; BP diastolic 62–79; PULSE 68–93; RESP 16–18; TEMP 97.5–98.8; O2SAT 94–100
[2023-04-05] MEDS: HYDROcodone-ACET 5/325MG TAB PO PRN (00:35)
[2023-04-05] MEDS: CYCLOBENZAPRINE HCL 10 MG TAB PO SCH ×2 (05:58→15:34)
[2023-04-05] MEDS: LEVOTHYROXINE SODIUM 25 MCG TAB PO SCH (05:58)
[2023-04-05 06:40] LABS: Hematocrit 43.7 % (36.0-46.0); Hemoglobin 14.2 g/dL (12.2-16.2); Mean Corpuscular Hemoglobin 28.1 pg (28.0-32.0); Mean Corpuscular Hgb Conc. 32.5 g/dL (32.0-36.0); Mean Corpuscular Volume 86.4 fL (80.0-100.0); Red Blood Cells 5.05 10^6/uL (4.0-5.20); Red Cell Distribution Width 16.1 % (11.8-14.3); White Blood Cell 10.3 10^3/uL (4.4-10.8)
[2023-04-05 06:49] LABS: Basophils % (manual) 0 (0.0-2.0); Blast Cells 0; Metamyelocytes % 0; Myelocytes % 0; Promyelocytes % 0; Reactive Lymphocytes 0
[2023-04-05 06:56] LABS: Alanine Aminotransferase 66 U/L (7-40); Albumin 4.2 g/dL (3.2-4.8); Alkaline Phosphatase 61 U/L (46-116); Anion Gap 9 (5-15); Aspartate Aminotransferase 28 U/L (13-40); BUN/Creatinine Ratio 23.3 (10.0-20.0); Bilirubin, Total 0.3 mg/dL (0.2-1.0); Blood Urea Nitrogen 17 mg/dL (9-23); Calcium 9.4 mg/dL (8.5-10.1); Carbon Dioxide 24 mmol/L (20-30); Chloride 108 mmol/L (98-107); Glucose 174 mg/dL (74-106); Potassium 4.5 mmol/L (3.5-5.1); Sodium 141 mmol/L (136-145); Total Protein 6.3 g/dL (5.7-8.2)
[2023-04-05] MEDS: LEVALBUTEROL HCL 1.25 MG/3 ML NEB NEB SCH ×2 (07:07→14:36)
[2023-04-05] MEDS: IPRATROPIUM BROM 0.5 MG/2.5ML INH SOL NEB SCH ×2 (07:07→14:36)
[2023-04-05 10:16] LABS: Band Neutrophils % (manual) 2; Eosinophils % (manual) 1 (0-7); Lymphocytes % (manual) 17 (10.0-50.0); Monocytes % (manual) 2 (0-12); Platelet Estimate Adequate
[2023-04-05] MEDS: ERTAPENEM SOD INJ 1 GM in SODIUM CHL 0.9% 50 ML IV SCH (12:16)
[2023-04-05] MEDS: methylPREDNISolone SOD SUCC 40 MG/ML VL IV SCH (12:17)
[2023-04-05] MEDS: PANTOPRAZOLE 40 MG TAB PO SCH (12:17)
[2023-04-05] MEDS: AZITHROMYCIN 500MG/ 250ML 250 ML IV SCH (13:08)
== END 2023-04-05 18:34 | disposition home health service (06) | DRG 140 ==
LOC: ER 17:35 → TELE 04-01 00:02 → UNDODISIN 04-01 17:00 → TELE-WESTW 04-01 17:22 → WEST WING 04-05 11:16
PROVIDERS: ADMIT Internal Medicine Geriatric Medicine; ATTEND Internal Medicine Geriatric Medicine
PROC: 05HD33Z Insertion of Infusion Device into Right Cephalic Vein, Percutaneous Approach (ICD-10-PCS; principal; 2023-04-03)
PROC: B54MZZA Ultrasonography of Right Upper Extremity Veins, Guidance (ICD-10-PCS; 2023-04-03)
DX: J44.1 Chronic obstructive pulmonary disease with (acute) exacerbation (principal); F31.9 Bipolar disorder, unspecified; N30.00 Acute cystitis without hematuria; G25.2 Other specified forms of tremor; B96.20 Unspecified Escherichia coli [E. coli] as the cause of diseases classified elsewhere; Z16.12 Extended spectrum beta lactamase (ESBL) resistance; G24.01 Drug induced subacute dyskinesia; T50.905A Adverse effect of unspecified drugs, medicaments and biological substances, initial encounter; Z87.440 Personal history of urinary (tract) infections; Y92.89 Other specified places as the place of occurrence of the external cause; Z11.52 Encounter for screening for COVID-19
CPT/HCPCS: 36415; 71045; 71250; 74176; 80048; 80053; 81001; 82553; 83605; 83880; 84443; 84484; 85007; 85025; 85027; 85610; 85730; 86803; 87040; 87086; 87088; 87186; 87340; 87426; 93005; 94640; 96365; 96366; 96367; 96368; 96375; G0378; J0696; J1335; J2185

== ENCOUNTER 2024-04-15 13:57 | Inpatient (IN) | payer MEDICAID ==
[~2024-04-15] VITALS: Ht 154.9 cm; Wt 92.0 kg
[~2024-04-15 13:57] MED LIST changes: -CEPH250C PO; -DIVA250T4 PO; +HYDR-4798 PO; -LEVO500T31 PO; -NITR-87 PO; +RISP1TAB63 PO; -TRAZ-227 PO
--- NOTE | 2024-04-15 14:27 | ED.PDOC ---
History of Present Illness HPI Comments 63-year-old female comes in with chief complaint of possible infection in the urine. Patient denies any nausea, vomiting or diarrhea. The patient states that she has been suffering with a urinary tract infection since January. The patient has been tried on two rounds of antibiotics that were oral. The patient states that the infection does not seem to be going away. She states that her family took her to [facility] to get a possible PICC line for IV antibiotics but it could not be done. The patient then had her urine test by her primary care doctor and has a results and states that she is now here for treatment of her infection. Patient has a suprapubic catheter secondary to spinal surgery complications. Chief Complaint: Urinary Time Seen by MD: 14:16 Primary Care Provider: ERICH Carson Notes: Nurses Notes, Medications, Allergies (No allergies to medications) Allergies: Coded Allergies: Lactose (Verified Allergy, Unknown, 07/18/20) Home Meds Reported Medications Hydrocodone-Acetaminophen (Hydrocodone Bitartrate/AC 10-325 mg) 1 Tab Tab, 1 TAB PO PRN, TAB 05/03/23 Cyclobenzaprine HCl (Cyclobenzaprine Hydrochlo) 10 Mg Tab, 10 MG PO BID, TAB 05/03/23 Risperidone (Risperidone) 1 Mg Tab, 1 MG PO BID, TAB 05/03/23 Cyclobenzaprine HCl (Cyclobenzaprine Hydrochlo) 10 Mg Tab, 1 TAB PO TID 06/07/22 Trazodone Hcl (Trazodone Hcl) 100 Mg Tab, 1 TAB PO DAILY 06/07/22 Risperidone (RisperDAL TABLET) 1 Mg Tb, 1 TAB PO DAILY, #30 TAB 1 Refill 07/18/20 Risperidone (RisperDAL TABLET) 1 Mg Tb, 2 TAB PO QPM, #30 TAB 1 Refill 07/18/20 Levothyroxine Sodium (Levothyroxine Sodium) 25 Mcg Tab, 25 MCG PO QAM, MCG 07/18/20 Pantoprazole Sodium Sesquihydr (Pantoprazole Sodium) 40 Mg Tab, 40 MG PO DAILY, TAB 07/18/20 Gabapentin (Gabapentin) 300 Mg Cap, 300 MG PO TID for 30 Days, MG 07/18/20 Information Source: Patient Mode of Arrival: The patient was using a walker Severity: Mild Timing: Weeks Duration: Since onset Prehospital treatment: None Location: Suprapubic pain Past Medical History PAST MEDICAL HISTORY: Anxiety, Depression, Thyroid, UTI'S Surgical History (Other): Spinal surgery GENERAL LITHOGRAPHIC WORKER History: No Pertinent GENERAL LITHOGRAPHIC WORKER History Family History Family History: Reviewed,noncontributory to illness, No family hx of Cancer, No family hx of DM, No family hx of Heart flores, No family hx of HTN, No family hx ofKidney flores, No family hx of Liver flores, No family hx of Lung flores, No family hx of Stroke Social History Smoker: Non-Smoker Alcohol: Denies ETOH Use Drugs: Denies Drug Use Lives In: Home Constitutional: denies: chills, diaphoresis, fatigue, fever, malaise, sweats, weakness, others EENTM: denies: blurred vision, double vision, ear bleeding, ear discharge, ear drainage, ear pain, ear ringing, eye pain, eye redness, hearing loss, mouth pain, mouth swelling, nasal discharge, nose bleeding, nose congestion, nose pain, photophobia, tearing, throat pain, throat swelling, voice changes, others Respiratory: denies: cough, hemoptysis, orthopnea, SOB at rest, shortness of breath, SOB with excertion, stridor, wheezing, others Cardiovascular: denies: chest pain, dizzy spells, diaphoresis, Dyspnea on exertion, edema, irregular heart beat, left arm pain, lightheadedness, palpitations, PND, syncope, others Gastrointestinal: denies: abdomen distended, abdominal pain, blood streaked bowels, constipated, diarrhea, dysphagia, difficulty swallowing, hematemesis, melena, nausea, poor appetite, poor fluid intake, rectal bleeding, rectal pain, vomiting, others Genitourinary: reports: pain; denies: abnormal vagina bleeding, burning, dyspareunia, dysuria, flank pain, frequency, hematuria, incontinence, , vagina discharge, urgency, others Neurological: denies: dizziness, fainting, headache, left sided numbness, left sided weakness, numbness, paresthesia, pre-existing deficit, right sided numbness, right sided weakness, seizure, speech problems, tingling, tremors, weakness, others Musculoskeletal: denies: back pain, gout, joint pain, joint swelling, muscle pain, muscle stiffness, neck pain, others Integumetry: denies: bruises, change in color, change in hair/nails, dryness, laceration, lesions, lumps, rash, wounds, others Allergic/Immunocompromised: denies: Difficulty Healing, Frequent Infections, Hives, Itching, others Hematologic/Lymphatic: denies: anemia, blood clots, easy bleeding, easy bruising, swollen glands, others Endocrine: denies: excessive hunger, excessive sweating, excessive thirst, excessive urination, flushing, intolerance to cold, intolerance to heat, unexplained weight gain, unexplained weight loss, others Psychiatric: denies: anxiety, bipolar disorder, depression, hopeless, panic disorder, schizophrenia, sleepless, suicidal, others Physical Exam General Appearance: Moderate Distress HEENT: Normal ENT Inspection, Pharynx Normal, TMs Normal Neck: Full Range of Motion, Non-Tender, Normal, Normal Inspection Respiratory: Chest Non-Tender, Lungs Clear, No Accessory Muscle Use, No Respiratory Distress, Normal Breath Sounds Cardiovascular: No Edema, No JVD, No Murmur, No Gallop, Normal Peripheral Pulses, Regular Rate/Rhythm Breast Exam: Deferred Gastrointestinal: No Organomegaly, No Pulsatile Mass, Normal Bowel Sounds, Soft, Tenderness (Suprapubic tenderness with a suprapubic catheter in place) Genitalia: Deferred Pelvic: Deferred Rectal: Deferred Extremities: No calf tenderness, Normal capillary refill, Normal inspection, Normal range of motion, Non-tender, No pedal edema Musculoskeletal : Apperance: Normal Neurologic: Alert, consultant rn II-XII nml as Tested, Motor Weakness, Normal Affect, Normal Mood, No Sensory Deficits Cerebellar Function: Normal Reflexes: Normal Skin: Dry, Normal Color, Warm Lymphatic: No Adenopathy Was a procedure done? Was a procedure done?: No Differential Dx Considerations may include: UTI, sepsis X-Ray, Labs, Meds, VS Vital Signs Date Time Temp Pulse Resp B/P (MAP) Pulse Ox O2 Delivery O2 Flow Rate FiO2 04/15/24 14:14 98.1 98 20 122/71 (88) 97 Lab Test 04/15/24 14:39 04/15/24 14:15 Range/Units White Blood Count 9.2 4.4-10.8 10^3/uL Red Blood Count 5.06 4.0-5.20 10^6/uL Hemoglobin 15.1 12.2-16.2 g/dL Hematocrit 44.5 36.0-46.0 % Mean Corpuscular Volume 87.9 80.0-100.0 fL Mean Corpuscular Hemoglobin 29.8 28.0-32.0 pg Mean Corpuscular Hemoglobin Concent 33.9 32.0-36.0 g/dL Red Cell Distribution Width 14.3 11.8-14.3 % Platelet Count 226 140-450 10^3/uL Mean Platelet Volume 7.5 6.9-10.8 fL Neutrophils (%) (Auto) 56.0 37.0-80.0 % Lymphocytes (%) (Auto) 34.7 10.0-50.0 % Monocytes (%) (Auto) 6.6 0.0-12.0 % Eosinophils (%) (Auto) 2.1 0.0-7.0 % Basophils (%) (Auto) 0.6 0.0-2.0 % Neutrophils # (Auto) 5.2 1.6-8.6 10 ^3/uL Lymphocytes # (Auto) 3.2 0.4-5.4 10 ^3/uL Monocytes # (Auto) 0.6 0-1.3 10 ^3/uL Eosinophils # (Auto) 0.2 0-0.8 10 ^3/uL Basophils # (Auto) 0.1 0-0.2 10 ^3/uL Nucleated Red Blood Cells 0.1 % Sodium Level 143 136-145 mmol/L Potassium Level 4.3 3.5-5.1 mmol/L Chloride Level 111 H 98-107 mmol/L Carbon Dioxide Level 23 20-31 mmol/L Anion Gap 9 5-15 Blood Urea Nitrogen 23 9-23 mg/dL Creatinine 1.39 H 0.550-1.02 mg/dL Glomerular Filtration Rate Calc 43 >90 mL/min BUN/Creatinine Ratio 16.5 10.0-20.0 Serum Glucose 83 74-106 mg/dL Calcium Level 10.1 8.7-10.4 mg/dL Urine Color Light-orange Yellow Urine Clarity Ex.turbid Clear Urine pH 5.5 5.0-9.0 Urine Specific [place] 1.023 1.001-1.035 Urine Protein 2+ H Negative Urine Ketones Negative Negative Urine Blood 2+ H Negative /uL Urine Nitrite 2+ H Negative Urine Bilirubin Negative Negative Urine Urobilinogen Normal Negative mg/dL Urine Leukocyte Esterase 3+ Negative /uL Urine RBC 86 0 - 4 /hpf Urine WBC 1206 0 - 5 /hpf Urine WBC Clumps Present None Seen /hpf Urine Squamous Epithelial Cells Few <5 /hpf Urine Bacteria Many H None Seen /hpf Urine Mucus Few None Seen Urine Yeast (Budding) Moderate None Seen /hpf Urine Glucose Normal Normal mg/dL The urine test is positive for significant UTI with clumps of white blood cells as well as WBCs of 1206 and RBCs of 86 The patient's CBC and chemistry panel are within normal limits At this time we are doing blood cultures as well as a lactic acid IV Hep-Lock is being established and the patient was being started on Levaquin The patient was being admitted to the hospitalist Time of 1ST Reevaluation: 14:27 Reevaluation 1ST: Unchanged Patient Education/Counseling: Diagnosis, Treatment, Prognosis Family Education/Counseling: No Family Present Departure 1 Departure Time of Disposition: 15:47 Impression: Primary Impression: UTI (urinary tract infection) Qualified Codes: N30.01 - Acute cystitis with hematuria Additional Impressions: Acute abdominal pain Generalized weakness Disposition: ADMITTED INPATIENT Admit to: Med Surg Condition: Fair Critical Care Note Critical Care Time?: No Stability Stability form required: No Heart Score Heart Score: Heart Score Response (Comments) Value History N/A 0 EKG N/A 0 Age N/A 0 Risk Factors N/A 0 Troponin N/A 0 Total 0 RODRIGUEZ HERNÁNDEZ MD Apr 15, 2024 14:27
[2024-04-15 15:08] LABS: Urine Bacteria MANY /hpf (None Seen); Urine Blood 2+ /uL (Negative); Urine Budding Yeast MODERATE /hpf (None Seen); Urine Clarity Ex.Turbid (Clear); Urine Color Light-Orange (Yellow); Urine Mucus FEW (None Seen); Urine Protein, UAD 2+ (Negative); Urine Specific Gravity 1.023 (1.001-1.035); Urine Urobilinogen Normal (Negative); Urine WBC 1206 /hpf (0 - 5); Urine WBC Clumps PRESENT /hpf (None Seen); Urine pH 5.5 (5.0-9.0)
[2024-04-15 15:21] LABS: Basophils # (auto) 0.1 10 ^3/uL (0-0.2); Basophils % (auto) 0.6 % (0.0-2.0); Eosinophils # (auto) 0.2 10 ^3/uL (0-0.8); Eosinophils % (auto) 2.1 % (0.0-7.0); Hematocrit 44.5 % (36.0-46.0); Hemoglobin 15.1 g/dL (12.2-16.2); Lymphocytes # (auto) 3.2 10 ^3/uL (0.4-5.4); Lymphocytes % (auto) 34.7 % (10.0-50.0); Mean Corpuscular Hemoglobin 29.8 pg (28.0-32.0); Mean Corpuscular Hgb Conc. 33.9 g/dL (32.0-36.0); Mean Corpuscular Volume 87.9 fL (80.0-100.0); Monocytes # (auto) 0.6 10 ^3/uL (0-1.3); Monocytes % (auto) 6.6 % (0.0-12.0); Neutrophils # (auto) 5.2 10 ^3/uL (1.6-8.6); Nucleated Red Blood Cells % 0.1 %; Platelet Count (auto) 226 10^3/uL (140-450); Red Blood Cells 5.06 10^6/uL (4.0-5.20); Red Cell Distribution Width 14.3 % (11.8-14.3); White Blood Cell 9.2 10^3/uL (4.4-10.8)
[2024-04-15 15:25] LABS: Potassium 4.3 mmol/L (3.5-5.1); Sodium 143 mmol/L (136-145)
[2024-04-15 15:26] LABS: Anion Gap 9 (5-15); Calcium 10.1 mg/dL (8.7-10.4); Carbon Dioxide 23 mmol/L (20-31)
[2024-04-15 15:31] LABS: BUN/Creatinine Ratio 16.5 (10.0-20.0); Blood Urea Nitrogen 23 mg/dL (9-23); Glucose 83 mg/dL (74-106)
[2024-04-15 15:33] LABS: Chloride 111 mmol/L (98-107)
[2024-04-15] MEDS ORDERED: levoFLOXacin 500MG 100 ML IV ONE (15:45)
[2024-04-15] MEDS: SODIUM CHLORIDE 0.9% 500 ML IV ONE (17:54)
[2024-04-15] MEDS: levoFLOXacin 250MG 50 ML IV ONE (18:05)
[2024-04-15] MEDS: PHENAZOPYRIDINE HCL 100 MG TAB PO SCH (22:58)
[2024-04-15] MEDS: ACETAMINOPHEN 325 MG TAB PO PRN (22:59)
--- NOTE | 2024-04-15 23:51 | DVHHP2 ---
History of Present Illness Reason for Visit: Urinary tract infection History of Present Illness 63-year-old female presents for evaluation of possible urinary tract infection. Patient reports a three day history of worsening lower abdominal pain with burning sensation. She denies fever or chills. Denies nausea or vomiting. No cardiac or respiratory complaints. Past Medical History Thyroid, urinary tract infections and depression Past Surgical History Suprapubic catheter spinal surgery Family History Noncontributory Smoke: No ALCOHOL: none Drugs: None Lives: with Family Review of Systems Review of Systems Review of systems are currently negative otherwise addressed in HPI. Allergies: Coded Allergies: Lactose (Verified Allergy, Unknown, 07/18/20) Medications Current Medications Medications Dose Ordered Sig/Mindy Route Start Time Stop Time Status Last Admin Dose Admin Levothyroxine Sodium 25 mcg QAM@0600 PO 04/16/24 06:00 Risperidone 1 mg DAILY PO 04/16/24 10:00 Phenazopyridine HCl 100 mg BID PO 04/15/24 22:00 04/15/24 22:58 100 MG Ondansetron HCl 4 mg Q4HP PRN IV 04/15/24 19:15 Acetaminophen 650 mg Q6HP PRN PO 04/15/24 19:15 04/15/24 22:59 650 MG Exam Vital Signs Vital Signs Date Time Temp Pulse Resp B/P (MAP) Pulse Ox O2 Delivery O2 Flow Rate FiO2 04/15/24 16:44 102 16 100 Room Air 04/15/24 16:44 98.9 126/75 (92) 98.9 Exam Gen: 63-year-old female in mild distress. Skin: Warm, dry, normal color and texture, no rash. HEENT: Normocephalic atraumatic, mucous membranes moist and pink. Neck: Cervical and supraclavicular nodes normal without enlargement, trachea is midline, thyroid gland is normal without masses. Pulmonary: Clear to auscultation and percussion bilaterally. Cardiac: Regular rate and rhythm. No murmur Abdomen: Soft, nontender, nondistended, bowel sounds present all 4 quadrants, no guarding, no rigidity, no organomegaly. Extremities: No cyanosis, clubbing, no edema Neuro: Cranial nerves II through XII grossly intact, normal affect and speech, no focal motor deficits. Labs/Xrays Labs Test 04/15/24 14:39 04/15/24 14:15 Range/Units White Blood Count 9.2 4.4-10.8 10^3/uL Red Blood Count 5.06 4.0-5.20 10^6/uL Hemoglobin 15.1 12.2-16.2 g/dL Hematocrit 44.5 36.0-46.0 % Mean Corpuscular Volume 87.9 80.0-100.0 fL Mean Corpuscular Hemoglobin 29.8 28.0-32.0 pg Mean Corpuscular Hemoglobin Concent 33.9 32.0-36.0 g/dL Red Cell Distribution Width 14.3 11.8-14.3 % Platelet Count 226 140-450 10^3/uL Mean Platelet Volume 7.5 6.9-10.8 fL Neutrophils (%) (Auto) 56.0 37.0-80.0 % Lymphocytes (%) (Auto) 34.7 10.0-50.0 % Monocytes (%) (Auto) 6.6 0.0-12.0 % Eosinophils (%) (Auto) 2.1 0.0-7.0 % Basophils (%) (Auto) 0.6 0.0-2.0 % Neutrophils # (Auto) 5.2 1.6-8.6 10 ^3/uL Lymphocytes # (Auto) 3.2 0.4-5.4 10 ^3/uL Monocytes # (Auto) 0.6 0-1.3 10 ^3/uL Eosinophils # (Auto) 0.2 0-0.8 10 ^3/uL Basophils # (Auto) 0.1 0-0.2 10 ^3/uL Nucleated Red Blood Cells 0.1 % Sodium Level 143 136-145 mmol/L Potassium Level 4.3 3.5-5.1 mmol/L Chloride Level 111 H 98-107 mmol/L Carbon Dioxide Level 23 20-31 mmol/L Anion Gap 9 5-15 Blood Urea Nitrogen 23 9-23 mg/dL Creatinine 1.39 H 0.550-1.02 mg/dL Glomerular Filtration Rate Calc 43 >90 mL/min BUN/Creatinine Ratio 16.5 10.0-20.0 Serum Glucose 83 74-106 mg/dL Calcium Level 10.1 8.7-10.4 mg/dL Urine Color Light-orange Yellow Urine Clarity Ex.turbid Clear Urine pH 5.5 5.0-9.0 Urine Specific [place] 1.023 1.001-1.035 Urine Protein 2+ H Negative Urine Ketones Negative Negative Urine Blood 2+ H Negative /uL Urine Nitrite 2+ H Negative Urine Bilirubin Negative Negative Urine Urobilinogen Normal Negative mg/dL Urine Leukocyte Esterase 3+ Negative /uL Urine RBC 86 0 - 4 /hpf Urine WBC 1206 0 - 5 /hpf Urine WBC Clumps Present None Seen /hpf Urine Squamous Epithelial Cells Few <5 /hpf Urine Bacteria Many H None Seen /hpf Urine Mucus Few None Seen Urine Yeast (Budding) Moderate None Seen /hpf Urine Glucose Normal Normal mg/dL Assessment/Plan Assessment/Plan Assessment Complicated urinary tract infection Acute kidney injury Hypothyroid Plan [facility]ist [place] Urine bacterial culture pending Resume home medications Continue treatment per orders. Plan discussed with: Patient My Orders Orders - SABAS LONGO Procedure Category Date Status Time Urine Bacterial JOSHUA 04/15/24 In Process Culture 19:14 Levothyroxine Tablet PHA 04/16/24 In Process (Synthroid Tablet) 06:00 Risperidone Tablet PHA 04/16/24 In Process (Risperdal Tablet) 10:00 Basic Metabolic Panel LAB 04/16/24 Verified 04:00 Phenazopyridine Hcl PHA 04/15/24 In Process Tablet (Pyridium Tab 22:00 Admit ADMIT 04/15/24 Transmitted 19:14 Ondansetron Hcl PHA 04/15/24 In Process (Zofran) 19:15 Condition: Stable TOM 04/15/24 In Process 19:14 Acetaminophen Tablet PHA 04/15/24 In Process (Tylenol Tablet) 19:15 Bedrest With Bathroom TOM 04/15/24 In Process Privileg 19:14 Date of Service: Apr 15, 2024 Billing Provider: SABAS LONGO Common Visit Codes: 69280-ERTBGIR INP/OBS CARE (MOD) SABAS LONGO Apr 15, 2024 23:51
[2024-04-16] VITALS (9 sets, daily range): BP systolic 100–122; BP diastolic 54–86; PULSE 83–91; RESP 17–22; TEMP 97.4–98.6; O2SAT 94–100
[2024-04-16] MEDS: HYDROcodone-ACET 10/325MG TAB PO ONE (01:57)
[2024-04-16 05:24] LABS: Anion Gap 5 (5-15); Carbon Dioxide 23 mmol/L (20-31); Sodium 142 mmol/L (136-145)
[2024-04-16 05:25] LABS: Calcium 9.1 mg/dL (8.7-10.4)
[2024-04-16 05:29] LABS: Chloride 114 mmol/L (98-107)
[2024-04-16 05:30] LABS: BUN/Creatinine Ratio 16.8 (10.0-20.0); Blood Urea Nitrogen 16 mg/dL (9-23); Glucose 102 mg/dL (74-106)
[2024-04-16] MEDS: LEVOTHYROXINE SODIUM 25 MCG TAB PO SCH (05:32)
[2024-04-16] MEDS ORDERED: cefTRIAXone 1GM/50ML D5W 50 ML IV ONE (07:45)
[2024-04-16 08:00] LABS: Basophils # (auto) 0 10 ^3/uL (0-0.2); Basophils % (auto) 0.5 % (0.0-2.0); Eosinophils # (auto) 0.3 10 ^3/uL (0-0.8); Eosinophils % (auto) 4.5 % (0.0-7.0); Hematocrit 39.1 % (36.0-46.0); Hemoglobin 13.3 g/dL (12.2-16.2); Mean Corpuscular Hemoglobin 30.2 pg (28.0-32.0); Mean Corpuscular Hgb Conc. 33.9 g/dL (32.0-36.0); Mean Corpuscular Volume 88.9 fL (80.0-100.0); Monocytes # (auto) 0.7 10 ^3/uL (0-1.3); Monocytes % (auto) 9.1 % (0.0-12.0); Neutrophils # (auto) 3.3 10 ^3/uL (1.6-8.6); Neutrophils % (auto) 44.9 % (37.0-80.0); Nucleated Red Blood Cells % 0.2 %; Platelet Count (auto) 185 10^3/uL (140-450); Red Cell Distribution Width 14.2 % (11.8-14.3); White Blood Cell 7.3 10^3/uL (4.4-10.8)
[2024-04-16] MEDS ORDERED: SODIUM CHLORIDE 0.9% 1,000 ML IV SCH (08:00)
[2024-04-16 08:10] LABS: Alanine Aminotransferase 16 U/L (7-40); Alkaline Phosphatase 61 U/L (46-116); Anion Gap 7 (5-15); Blood Urea Nitrogen 17 mg/dL (9-23); Calcium 9.2 mg/dL (8.7-10.4); Carbon Dioxide 21 mmol/L (20-31); Glucose 100 mg/dL (74-106); Magnesium 2.1 mg/dL (1.6-2.6); Potassium 3.9 mmol/L (3.5-5.1); Sodium 142 mmol/L (136-145)
[2024-04-16 08:11] LABS: Albumin 3.5 g/dL (3.2-4.8); Aspartate Aminotransferase 15 U/L (13-40); BUN/Creatinine Ratio 18.5 (10.0-20.0)
[2024-04-16 08:12] LABS: Bilirubin, Total 0.4 mg/dL (0.2-1.0); Total Protein 5.8 g/dL (5.7-8.2)
[2024-04-16 08:13] LABS: Chloride 114 mmol/L (98-107)
[2024-04-16] MEDS ORDERED: cefTRIAXone 1GM/50ML D5W 50 ML IV SCH (09:00)
[2024-04-16] MEDS ORDERED: HYDROcodone-ACET 10/325MG TAB PO PRN (09:00)
[2024-04-16] MEDS ORDERED: ERTAPENEM SOD 1 GM INJ VIAL IV SCH (09:15)
--- NOTE | 2024-04-16 09:22 | DVH ---
INDICATION: Dysuria TECHNIQUE: Multiple real-time sonographic images of the kidneys and bladder were obtained. COMPARISON: None FINDINGS: The right kidney measures 9 cm in length, which is normal in size. There is normal echogenicity of th e right kidney. No hydronephrosis. The left kidney measures 11 cm in length, which is normal in size. There is normal echogenicity of th e left kidney. No hydronephrosis. No large intraluminal masses are seen in the bladder. IMPRESSION: 1. Normal sonographic appearance of the kidneys. No hydronephrosis.
[2024-04-16] MEDS: MORPHINE SULFATE INJ 2 MG/ml SYRG IV ONE (09:32)
[2024-04-16] MEDS ORDERED: RISP2TAB28 PO (09:41)
[2024-04-16] MEDS ORDERED: RISP1TAB33 PO (09:41)
[2024-04-16] MEDS ORDERED: HYDR-4798 PO (09:43)
[2024-04-16] MEDS ORDERED: risperiDONE 1 MG TAB PO SCH ×2 (10:00→22:00)
[2024-04-16] MEDS: traZODone HCL 50 MG TAB PO SCH ×2 (10:00→22:10)
[2024-04-16] MEDS ORDERED: ERTAPENEM SOD 1 GM INJ VIAL IM SCH (10:00)
[2024-04-16] MEDS: SODIUM CHLORIDE 0.9% 500 ML IV ONE (10:02)
[2024-04-16] MEDS: ERTAPENEM SOD INJ 1 GM in SODIUM CHL 0.9% 50 ML IV SCH (10:59)
[2024-04-16] MEDS: risperiDONE 1 MG TAB PO ONE (13:02)
[2024-04-16] MEDS: CYCLOBENZAPRINE HCL 10 MG TAB PO SCH (13:02)
--- NOTE | 2024-04-16 14:46 | DVHPNRES ---
Progress Note Date Seen: Apr 16, 2024 Resident Creating Document: ELBERT LARKIN RESIDENT Medical Necessity Reason Pt with a Central, PICC or Fol: Yes The following are medically ne: [place] Catheter Subjective Review of Systems Patient is 63 years old female with a history of neurogenic bladder, suprapubic catheter, peripheral neuropathy, thyroid disease, history of recurrent UTI, history of complicated UTI with ESBL, history of chronic insomnia, depression came with a complaint of lower abdominal pain. As per patient she has been having lower abdominal pain for last 3 days, which is crampy severe in nature, 10/10, increased with movement, no relieving factor, no radiation. -patient with suprapubic catheter for last 3 months. Patient reported feeling some dysuria or burning pain in the lower abdomen. Patient denied any fever, chest pain, shortness of breath, acute joint pain or swelling, dysarthria or change in vision. Patient has a history of UTI with ESBL E coli. Initial lab workup revealed WBC 9.2, serum creatinine 1.39, urinalysis significant for UTI with nitrite 2+, leukocyte esterase 3+, RBC 86, WBC 1206, bacteria many. Renal ultrasound revealed-Normal sonographic appearance of the kidneys. No hydronephrosis. PMH-neurogenic bladder, suprapubic catheter, peripheral neuropathy, thyroid disease, history of recurrent UTI, history of complicated UTI with ESBL, history of chronic insomnia, depression PSH- spinal surgery, suprapubic catheter Allergy- lactulose, Personal History/ Social history-denies smoking/alcoholism, smoking or drug abuse, lives at home Patient was seen today at the bedside. Patient suprapubic pain Cardiovascular- deny acute chest pain or shortness of breath or cough or palpitation Respiratory- denies cough or short of breath or wheezing Gastrointestinal- ++ suprapubic pain, denies any rectal bleeding, nausea or vomiting Musculoskeletal-denies acute joint swelling or tenderness or redness Neurological- denies acute dysarthria, dysphagia, change in vision Psychiatry- denies depression or SI or HI Skin- denies acute rash or purpura Patient was seen today for clinical evaluation. Labs and chart reviewed. Patient complained of suprapubic pain, crampy in nature, 10/10, ordered morphine IV p.r.n.. Patient was started on you ertapenem as has a history of E coli ESBL infection before and sensitive to ertapenem. Objective vital signs Vital Sign Date Time Temp Pulse Resp B/P (MAP) Pulse Ox O2 Delivery O2 Flow Rate FiO2 04/16/24 13:15 98.6 85 17 118/67 (84) 94 98.6 04/16/24 08:00 Room Air* 0 21 Total Intake and Output 04/15/24 04/15/24 04/16/24 15:00 23:00 07:00 Intake Total 240 ml Output Total 550 ml Balance -310 ml medications Current Medications Medications Dose Ordered Sig/Mindy Route Start Time Stop Time Status Last Admin Dose Admin Phenazopyridine HCl 100 mg BID PO 04/15/24 22:00 04/16/24 09:30 100 MG Ondansetron HCl 4 mg Q4HP PRN IV 04/15/24 19:15 Acetaminophen 650 mg Q6HP PRN PO 04/15/24 19:15 04/15/24 22:59 650 MG Cyclobenzaprine HCl 10 mg TID PO 04/16/24 14:00 04/16/24 13:02 10 MG Levothyroxine Sodium 25 mcg QAM PO 04/17/24 07:00 Risperidone 2 mg HS PO 04/16/24 22:00 Ertapenem 1 gm/ Sodium Chloride 50 ml @ 100 mls/hr DAILY IV 04/16/24 10:30 04/16/24 10:59 100 MLS/HR Trazodone HCl 100 mg HS PO 04/16/24 22:00 Risperidone 1 mg DAILY PO 04/17/24 10:00 Risperidone 2 mg HS PO 04/16/24 22:00 Cancel Acetaminophen/ Hydrocodone Bitart 1 tab Q8HP PRN PO 04/16/24 11:30 Examination General examination- complained of suprapubic pain , patient with suprapubic catheter HEENT- PEERLA, no acute nasal discharge Cardiovascular- S1-S2 audible, rate and rhythm regular, no murmur Respiratory- CTAB, no wheeze or rhonchi Gastrointestinal-suprapubic tenderness++,, bowel sound+. Nondistended Musculoskeletal-no acute joint swelling or tenderness or redness# Lower extremity- no leg edema Neurological- cranial nerves intact, no acute dysarthria or dysphagia Psychiatry- denies depression or SI or HI Skin- no acute rash or purpura laboratory and microbiology Laboratory Tests 04/16/24 05:03 Test 12/20/24 05:03 Range/Units Serum Glucose 100 74-106 mg/dL Microbiology Date/Time Source Procedure Growth Status 04/15/24 14:15 Voided Urine Urine Culture - Preliminary Resulted Problem List/Assessment/Plan Problem List/Assessment/Plan # sepsis due to UTI, history of recurrent UTI -patient with a history of UTI with ESBL E coli -patient with suprapubic catheter for last 3 months -continue IV saline 100 mL/hour -continuing ertapenem 1 g IV daily -controlled BP -pending urine CS # UTI, history of recurrent UTI -history of recurrent UTI -patient with a history of UTI with ESBL E coli -continue IV saline 100 mL/hour -continuing ertapenem 1 g IV daily -controlled BP -pending urine CS # neurogenic bladder -patient with suprapubic catheter -as per patient she change her suprapubic catheter every months -continue current management and care -pending Urology consult # peripheral neuropathy -continue current management # hypothyroidism -continue levothyroxine 25 mcg q.a.m. # depression -continue trazodone 100 mg p.o. q.h.s. -continue risperidone 1 mg p.o. daily in the morning -continue risperidone 2 mg q.h.s. # chronic insomnia -continue trazodone 100 mg p.o. q.h.s. Goals of care/advance care planning; FULL CODE; discussed with the patient >15 minutes PUD prophylaxis: Famotidine DVT prophylaxis: Lovenox Plan discussed with Dr. Stevens, nursing staff, patient Total time spent on patient evaluation, chart review, assessment and plan, discussion discussion >30 minutes Plan discussed with: Patient Plan discussed with: Patient, Other (RN) My Orders My Orders Orders - ELBERT LARKIN Procedure Category Date Status Time Kidney US 04/16/24 Resulted 07:44 Cyclobenzaprine PHA 04/16/24 In Process Tablet (Flexeril 14:00 Levothyroxine Tablet PHA 04/17/24 In Process (Synthroid Tablet) 07:00 Risperidone Tablet PHA 04/16/24 In Process (Risperdal Tablet) 22:00 * Food Services Manager Consultation CONS 04/16/24 Transmitted 09:45 Ertapenem Sod Inj PHA 04/16/24 In Process (Invanz) 10:30 Trazodone Hcl PHA 04/16/24 In Process (Desyrel) 22:00 Hydrocodone-Acet PHA 04/16/24 In Process 10/325mg Tab ([place] 11:30 * Urology Consult CONS 04/16/24 Verified 14:26 Complete Blood Count LAB 04/17/24 Verified 04:00 Basic Metabolic Panel LAB 04/17/24 Verified 04:00 Magnesium LAB 04/17/24 Verified 04:00 Date of Service: Apr 16, 2024 Billing Provider: VANDANA STEVENS MD Common Visit Codes: [id number] INP/OBS CARE(HIGH) Secondary Visit Codes: [id number] CARE PLAN 30 MINUTES ELBERT LARKIN RESIDENT Apr 16, 2024 14:46 VANDANA STEVENS MD Apr 16, 2024 22:38
[2024-04-16] MEDS: SODIUM CHLORIDE 0.9% 1,000 ML IV SCH (15:05)
[2024-04-16] MEDS: ENOXAPARIN SOD 40 MG/0.4 ML SYRINGE SC ONE (17:43)
[2024-04-16] MEDS: HYDROcodone-ACET 10/325MG TAB PO PRN (17:44)
[2024-04-16] MEDS: FAMOTIDINE (10MG/ML) 2ML VL IV SCH (22:09)
[2024-04-16] MEDS: ONDANSETRON HCL 4 MG/2 ML VIAL IV PRN (22:09)
[2024-04-16] MEDS: risperiDONE 1 MG TAB PO SCH (22:10)
[2024-04-17 01:00] VITALS: BP 111/62; PULSE 79; RESP 18; TEMP 98.1; O2SAT 94
[2024-04-17 05:00] VITALS: BP 98/51; PULSE 68; RESP 18; TEMP 97.7; O2SAT 98
[2024-04-17] MEDS: LEVOTHYROXINE SODIUM 25 MCG TAB PO SCH (06:12)
[2024-04-17 07:20] LABS: Basophils # (auto) 0 10 ^3/uL (0-0.2); Basophils % (auto) 0.6 % (0.0-2.0); Eosinophils # (auto) 0.4 10 ^3/uL (0-0.8); Hematocrit 37.6 % (36.0-46.0); Hemoglobin 12.9 g/dL (12.2-16.2); Lymphocytes # (auto) 2.9 10 ^3/uL (0.4-5.4); Lymphocytes % (auto) 46.2 % (10.0-50.0); Mean Corpuscular Hemoglobin 30.7 pg (28.0-32.0); Mean Corpuscular Hgb Conc. 34.4 g/dL (32.0-36.0); Mean Corpuscular Volume 89.4 fL (80.0-100.0); Monocytes # (auto) 0.6 10 ^3/uL (0-1.3); Monocytes % (auto) 9.2 % (0.0-12.0); Neutrophils # (auto) 2.4 10 ^3/uL (1.6-8.6); Nucleated Red Blood Cells % 0.1 %; Platelet Count (auto) 175 10^3/uL (140-450); Red Blood Cells 4.21 10^6/uL (4.0-5.20); Red Cell Distribution Width 14.3 % (11.8-14.3); White Blood Cell 6.3 10^3/uL (4.4-10.8)
[2024-04-17 07:21] LABS: Sodium 140 mmol/L (136-145)
[2024-04-17 07:22] LABS: Anion Gap 6 (5-15); Carbon Dioxide 22 mmol/L (20-31)
[2024-04-17 07:23] LABS: Calcium 8.9 mg/dL (8.7-10.4)
[2024-04-17 07:27] LABS: Glucose 95 mg/dL (74-106)
[2024-04-17 07:28] LABS: BUN/Creatinine Ratio 13.5 (10.0-20.0); Blood Urea Nitrogen 14 mg/dL (9-23); Magnesium 1.9 mg/dL (1.6-2.6)
[2024-04-17 07:29] LABS: Chloride 112 mmol/L (98-107)
[2024-04-17 08:53] VITALS: BP 96/56; PULSE 74; RESP 17; TEMP 97.7; O2SAT 95
[2024-04-17] MEDS: risperiDONE 1 MG TAB PO SCH (09:12)
[2024-04-17] MEDS: FAMOTIDINE (10MG/ML) 2ML VL IV SCH (09:13)
[2024-04-17] MEDS: ENOXAPARIN SOD 40 MG/0.4 ML SYRINGE SC SCH (09:14)
[2024-04-17 13:00] VITALS: BP 109/61; PULSE 78; RESP 17; TEMP 97.8; O2SAT 96
--- NOTE | 2024-04-17 14:40 | DVHPNRES ---
Progress Note Date Seen: Apr 17, 2024 Resident Creating Document: CATALINA PRIETO RESIDENT Medical Necessity Reason Pt with a Central, PICC or Fol: Yes The following are medically ne: [place] Catheter Subjective Review of Systems Patient is 63 years old female with a history of neurogenic bladder, suprapubic catheter, peripheral neuropathy, thyroid disease, history of recurrent UTI, history of complicated UTI with ESBL, history of chronic insomnia, depression came with a complaint of lower abdominal pain. As per patient she has been having lower abdominal pain for last 3 days, which is crampy severe in nature, 10/10, increased with movement, no relieving factor, no radiation. -patient with suprapubic catheter for last 3 months. Patient reported feeling some dysuria or burning pain in the lower abdomen. Patient denied any fever, chest pain, shortness of breath, acute joint pain or swelling, dysarthria or change in vision. Patient has a history of UTI with ESBL E coli. Initial lab workup revealed WBC 9.2, serum creatinine 1.39, urinalysis significant for UTI with nitrite 2+, leukocyte esterase 3+, RBC 86, WBC 1206, bacteria many. Renal ultrasound revealed-Normal sonographic appearance of the kidneys. No hydronephrosis. PMH-neurogenic bladder, suprapubic catheter, peripheral neuropathy, thyroid disease, history of recurrent UTI, history of complicated UTI with ESBL, history of chronic insomnia, depression PSH- spinal surgery, suprapubic catheter Allergy- lactulose, Personal History/ Social history-denies smoking/alcoholism, smoking or drug abuse, lives at home Patient was seen today at the bedside. Patient suprapubic pain Cardiovascular- deny acute chest pain or shortness of breath or cough or palpitation Respiratory- denies cough or short of breath or wheezing Gastrointestinal- ++ suprapubic pain, denies any rectal bleeding, nausea or vomiting Musculoskeletal-denies acute joint swelling or tenderness or redness Neurological- denies acute dysarthria, dysphagia, change in vision Psychiatry- denies depression or SI or HI Skin- denies acute rash or purpura Patient was seen today for clinical evaluation. Labs and chart reviewed. Patient complained of suprapubic pain, crampy in nature, 8/10, on morphine IV p.r.n.. D/C ertapenem start meropenem. Objective vital signs Vital Sign Date Time Temp Pulse Resp B/P (MAP) Pulse Ox O2 Delivery O2 Flow Rate FiO2 04/17/24 13:00 97.8 78 17 109/61 (77) 96 97.8 04/17/24 08:00 Room Air* 0 21 Total Intake and Output 04/16/24 04/16/24 04/17/24 15:00 23:00 07:00 Intake Total 550 ml 645 ml 2200 ml Output Total 800 ml 1100 ml Balance 550 ml -155 ml 1100 ml medications Current Medications Medications Dose Ordered Sig/Mindy Route Start Time Stop Time Status Last Admin Dose Admin Phenazopyridine HCl 100 mg BID PO 04/15/24 22:00 04/17/24 09:12 100 MG Ondansetron HCl 4 mg Q4HP PRN IV 04/15/24 19:15 04/16/24 22:09 4 MG Acetaminophen 650 mg Q6HP PRN PO 04/15/24 19:15 04/17/24 09:15 650 MG Cyclobenzaprine HCl 10 mg TID PO 04/16/24 14:00 04/17/24 06:12 10 MG Levothyroxine Sodium 25 mcg QAM PO 04/17/24 07:00 04/17/24 06:12 25 MCG Risperidone 2 mg HS PO 04/16/24 22:00 04/16/24 22:10 2 MG Trazodone HCl 100 mg HS PO 04/16/24 22:00 04/16/24 22:10 100 MG Risperidone 1 mg DAILY PO 04/17/24 10:00 04/17/24 09:12 1 MG Risperidone 2 mg HS PO 04/16/24 22:00 Cancel Acetaminophen/ Hydrocodone Bitart 1 tab Q8HP PRN PO 04/16/24 11:30 04/17/24 11:27 1 TAB Sodium Chloride 1,000 ml @ 100 mls/hr Q10H IV 04/16/24 14:45 04/17/24 09:14 100 MLS/HR Famotidine 20 mg DAILY IV 04/17/24 10:00 04/17/24 09:13 20 MG Famotidine 20 mg Q12HR IV 04/16/24 22:00 Hold 04/16/24 22:09 20 MG Enoxaparin Sodium 40 mg DAILY SC 04/17/24 10:00 12/21/24 09:14 40 MG Meropenem 50 ml @ 17 mls/hr Q8HR IV 04/17/24 14:00 Examination General examination- patient with suprapubic catheter HEENT- PEERLA, no acute nasal discharge Cardiovascular- S1-S2 audible, rate and rhythm regular, no murmur Respiratory- CTAB, no wheeze or rhonchi Gastrointestinal-suprapubic tenderness++,, bowel sound+. Nondistended Musculoskeletal-no acute joint swelling or tenderness or redness# Lower extremity- no leg edema Neurological- cranial nerves intact, no acute dysarthria or dysphagia Psychiatry- denies depression or SI or HI Skin- no acute rash or purpura laboratory and microbiology Laboratory Tests 04/17/24 06:32 Test 04/17/24 06:32 Range/Units Serum Glucose 95 74-106 mg/dL Microbiology Date/Time Source Procedure Growth Status 04/16/24 01:15 Nose MRSA Screen - Final Complete 04/15/24 14:15 Voided Urine Urine Culture - Preliminary Resulted Problem List/Assessment/Plan Problem List/Assessment/Plan # sepsis due to UTI, history of recurrent UTI -patient with a history of UTI with ESBL E coli -patient with suprapubic catheter for last 3 months -continue IV saline 100 mL/hour -D/C ertapenem 1 g IV daily, start meropenem 1 g q.8 hours -controlled BP -pending urine CS # UTI, history of recurrent UTI -history of recurrent UTI -patient with a history of UTI with ESBL E coli -continue IV saline 100 mL/hour -start meropenem 1 g q.8 hours -controlled BP - urine CS preli: >100,000 CFU/mL Gram Negative Rods # neurogenic bladder -patient with suprapubic catheter -as per patient she change her suprapubic catheter every months -continue current management and care -pending Urology consult # peripheral neuropathy -continue current management # hypothyroidism -continue levothyroxine 25 mcg q.a.m. # depression -continue trazodone 100 mg p.o. q.h.s. -continue risperidone 1 mg p.o. daily in the morning -continue risperidone 2 mg q.h.s. # chronic insomnia -continue trazodone 100 mg p.o. q.h.s. Goals of care/advance care planning; FULL CODE; discussed with the patient >15 minutes PUD prophylaxis: Famotidine DVT prophylaxis: Lovenox Plan discussed with Dr. Stevens, Goals of care discussed with patient for 23 minutes: Full code Plan discussed with: Patient Date of Service: Apr 17, 2024 Billing Provider: VANDANA STEVENS MD Common Visit Codes: [id number] INP/OBS CARE(HIGH) CATALINA PRIETO RESIDENT Apr 17, 2024 14:40 VANDANA STEVENS MD Apr 19, 2024 17:31
[2024-04-17] MEDS: MEROPENEM 1GM IVPB 50 ML IV SCH (15:24)
[2024-04-17 16:57] VITALS: BP 119/51; PULSE 81; RESP 17; TEMP 98; O2SAT 95
[2024-04-17 21:00] VITALS: BP 108/49; PULSE 86; RESP 18; TEMP 97.5; O2SAT 95
[2024-04-18] VITALS (7 sets, daily range): BP systolic 106–128; BP diastolic 51–79; PULSE 81–91; RESP 16–20; TEMP 98.1–99.1; O2SAT 95–97
[2024-04-18 07:04] LABS: Basophils # (auto) 0 10 ^3/uL (0-0.2); Basophils % (auto) 0.6 % (0.0-2.0); Eosinophils # (auto) 0.3 10 ^3/uL (0-0.8); Eosinophils % (auto) 6.3 % (0.0-7.0); Hematocrit 38.7 % (36.0-46.0); Hemoglobin 13.1 g/dL (12.2-16.2); Lymphocytes # (auto) 1.5 10 ^3/uL (0.4-5.4); Lymphocytes % (auto) 29.1 % (10.0-50.0); Mean Corpuscular Hemoglobin 30.5 pg (28.0-32.0); Mean Corpuscular Volume 89.8 fL (80.0-100.0); Monocytes # (auto) 0.5 10 ^3/uL (0-1.3); Monocytes % (auto) 9.4 % (0.0-12.0); Neutrophils # (auto) 2.9 10 ^3/uL (1.6-8.6); Neutrophils % (auto) 54.6 % (37.0-80.0); Nucleated Red Blood Cells % 0.3 %; Platelet Count (auto) 168 10^3/uL (140-450); Red Blood Cells 4.31 10^6/uL (4.0-5.20); Red Cell Distribution Width 14.2 % (11.8-14.3); White Blood Cell 5.3 10^3/uL (4.4-10.8)
[2024-04-18 07:21] LABS: Anion Gap 4 (5-15); Carbon Dioxide 28 mmol/L (20-31); Sodium 142 mmol/L (136-145)
[2024-04-18 07:22] LABS: Calcium 9.2 mg/dL (8.7-10.4)
[2024-04-18 07:27] LABS: BUN/Creatinine Ratio 11.7 (10.0-20.0); Blood Urea Nitrogen 12 mg/dL (9-23); Glucose 92 mg/dL (74-106)
[2024-04-18 07:35] LABS: Chloride 110 mmol/L (98-107)
--- NOTE | 2024-04-18 16:19 | DVHPNRES ---
Progress Note Date Seen: Apr 18, 2024 Resident Creating Document: ELBERT LARKIN RESIDENT Medical Necessity Reason Pt with a Central, PICC or Fol: Yes The following are medically ne: [place] Catheter Subjective Review of Systems Patient is 63 years old female with a history of neurogenic bladder, suprapubic catheter, peripheral neuropathy, thyroid disease, history of recurrent UTI, history of complicated UTI with ESBL, history of chronic insomnia, depression came with a complaint of lower abdominal pain. As per patient she has been having lower abdominal pain for last 3 days, which is crampy severe in nature, 10/10, increased with movement, no relieving factor, no radiation. -patient with suprapubic catheter for last 3 months. Patient reported feeling some dysuria or burning pain in the lower abdomen. Patient denied any fever, chest pain, shortness of breath, acute joint pain or swelling, dysarthria or change in vision. Patient has a history of UTI with ESBL E coli. Initial lab workup revealed WBC 9.2, serum creatinine 1.39, urinalysis significant for UTI with nitrite 2+, leukocyte esterase 3+, RBC 86, WBC 1206, bacteria many. Renal ultrasound revealed-Normal sonographic appearance of the kidneys. No hydronephrosis. PMH-neurogenic bladder, suprapubic catheter, peripheral neuropathy, thyroid disease, history of recurrent UTI, history of complicated UTI with ESBL, history of chronic insomnia, depression PSH- spinal surgery, suprapubic catheter Allergy- lactulose, Personal History/ Social history-denies smoking/alcoholism, smoking or drug abuse, lives at home Patient was seen today at the bedside. Patient suprapubic pain Cardiovascular- deny acute chest pain or shortness of breath or cough or palpitation Respiratory- denies cough or short of breath or wheezing Gastrointestinal- ++ suprapubic pain, denies any rectal bleeding, nausea or vomiting Musculoskeletal-denies acute joint swelling or tenderness or redness Neurological- denies acute dysarthria, dysphagia, change in vision Psychiatry- denies depression or SI or HI Skin- denies acute rash or purpura Patient was seen today for clinical evaluation. Labs and chart reviewed. Patient complained of suprapubic pain, crampy in nature. Patient is on IV meropenem 1 g iv q.8h, tolerating well. Due for urology consult for further evaluation and care. Urine CS grew more than 3 organisms, MRSA screening negative, blood culture no growth so far. Objective vital signs Vital Sign Date Time Temp Pulse Resp B/P (MAP) Pulse Ox O2 Delivery O2 Flow Rate FiO2 04/18/24 11:59 98.1 91 16 111/58 (75) 97 98.1 04/18/24 07:50 Room Air* 0 21 Total Intake and Output 04/17/24 04/17/24 04/18/24 15:00 23:00 07:00 Intake Total 150 ml 340 ml 250 ml Output Total 1650 ml 1280 ml Balance 150 ml -1310 ml -1030 ml medications Current Medications Medications Dose Ordered Sig/Mindy Route Start Time Stop Time Status Last Admin Dose Admin Phenazopyridine HCl 100 mg BID PO 04/15/24 22:00 04/18/24 08:58 100 MG Ondansetron HCl 4 mg Q4HP PRN IV 04/15/24 19:15 04/18/24 08:58 4 MG Acetaminophen 650 mg Q6HP PRN PO 04/15/24 19:15 04/17/24 18:56 650 MG Cyclobenzaprine HCl 10 mg TID PO 04/16/24 14:00 04/18/24 13:25 10 MG Levothyroxine Sodium 25 mcg QAM PO 04/17/24 07:00 04/18/24 06:32 25 MCG Risperidone 2 mg HS PO 04/16/24 22:00 04/17/24 21:32 2 MG Trazodone HCl 100 mg HS PO 04/16/24 22:00 04/17/24 21:31 100 MG Risperidone 1 mg DAILY PO 04/17/24 10:00 04/18/24 08:58 1 MG Risperidone 2 mg HS PO 04/16/24 22:00 Cancel Acetaminophen/ Hydrocodone Bitart 1 tab Q8HP PRN PO 04/16/24 11:30 04/18/24 16:10 1 TAB Sodium Chloride 1,000 ml @ 100 mls/hr Q10H IV 04/16/24 14:45 04/18/24 11:02 100 MLS/HR Famotidine 20 mg DAILY IV 04/17/24 10:00 04/18/24 08:57 20 MG Famotidine 20 mg Q12HR IV 04/16/24 22:00 Hold 04/16/24 22:09 20 MG Enoxaparin Sodium 40 mg DAILY SC 04/17/24 10:00 04/18/24 08:58 40 MG Meropenem 50 ml @ 17 mls/hr Q8HR IV 04/17/24 14:00 04/18/24 13:27 17 MLS/HR Examination General examination- complained of suprapubic pain , patient with suprapubic catheter HEENT- PEERLA, no acute nasal discharge Cardiovascular- S1-S2 audible, rate and rhythm regular, no murmur Respiratory- CTAB, no wheeze or rhonchi Gastrointestinal-suprapubic tenderness++,, bowel sound+. Nondistended Musculoskeletal-no acute joint swelling or tenderness or redness# Lower extremity- no leg edema Neurological- cranial nerves intact, no acute dysarthria or dysphagia Psychiatry- denies depression or SI or HI Skin- no acute rash or purpura laboratory and microbiology Laboratory Tests 04/18/24 05:54 Test 04/18/24 05:54 Range/Units Serum Glucose 92 74-106 mg/dL Microbiology Date/Time Source Procedure Growth Status 04/16/24 18:23 Blood Blood Culture - Preliminary NO GROWTH AFTER 24 HOURS OF INCUBATION. Resulted 04/16/24 01:15 Nose MRSA Screen - Final Complete 04/15/24 14:15 Voided Urine Urine Culture - Final Complete Problem List/Assessment/Plan Problem List/Assessment/Plan # sepsis due to UTI, history of recurrent UTI -uterine CS more than 3 colony -patient with a history of UTI with ESBL E coli -patient with suprapubic catheter for last 3 months -continue IV saline 100 mL/hour -continuing meropenem 1 g IV q.8h -controlled BP - Urine CS grew more than 3 organisms, MRSA screening negative, blood culture no growth so far. # UTI, history of recurrent UTI -history of recurrent UTI -patient with a history of UTI with ESBL E coli -continue IV saline 100 mL/hour -continuing meropenem 1 g IV q.8h -controlled BP -pending urine CS # neurogenic bladder -patient with suprapubic catheter -as per patient she change her suprapubic catheter every months -continue current management and care -pending Urology consult # JOHANNY likely due to VMN -continue current management -dehydration and nephrotoxic drugs # peripheral neuropathy -continue current management # hypothyroidism -continue levothyroxine 25 mcg q.a.m. # depression -continue trazodone 100 mg p.o. q.h.s. -continue risperidone as prescribed s. # chronic insomnia -continue trazodone 100 mg p.o. q.h.s. Goals of care/advance care planning; FULL CODE; discussed with the patient >15 minutes PUD prophylaxis: Famotidine DVT prophylaxis: Lovenox Plan discussed with Dr. Stevens, nursing staff, patient Total time spent on patient evaluation, chart review, assessment and plan, discussion discussion >30 minutes Plan discussed with: Patient Plan discussed with: Patient, Other (RN) Date of Service: Apr 18, 2024 Billing Provider: VANDANA STEVENS MD Common Visit Codes: [id number] INP/OBS CARE(HIGH) ELBERT LARKIN RESIDENT Apr 18, 2024 16:19 VANDANA STEVENS MD Apr 19, 2024 17:31
[2024-04-19 01:06] VITALS: BP 128/54; PULSE 97; RESP 19; TEMP 98.2; O2SAT 93
[2024-04-19 05:00] VITALS: BP 114/54; PULSE 100; RESP 17; TEMP 98; O2SAT 90
[2024-04-19 06:28] LABS: Basophils # (auto) 0 10 ^3/uL (0-0.2); Basophils % (auto) 0.4 % (0.0-2.0); Eosinophils # (auto) 0.1 10 ^3/uL (0-0.8); Eosinophils % (auto) 2.6 % (0.0-7.0); Hematocrit 39.3 % (36.0-46.0); Hemoglobin 13.5 g/dL (12.2-16.2); Lymphocytes # (auto) 1.7 10 ^3/uL (0.4-5.4); Lymphocytes % (auto) 29.4 % (10.0-50.0); Mean Corpuscular Hemoglobin 30.3 pg (28.0-32.0); Mean Corpuscular Hgb Conc. 34.3 g/dL (32.0-36.0); Mean Corpuscular Volume 88.5 fL (80.0-100.0); Monocytes # (auto) 0.6 10 ^3/uL (0-1.3); Monocytes % (auto) 10.6 % (0.0-12.0); Neutrophils # (auto) 3.3 10 ^3/uL (1.6-8.6); Nucleated Red Blood Cells % 0.1 %; Platelet Count (auto) 172 10^3/uL (140-450); Red Blood Cells 4.44 10^6/uL (4.0-5.20); Red Cell Distribution Width 14.1 % (11.8-14.3); White Blood Cell 5.9 10^3/uL (4.4-10.8)
[2024-04-19 06:37] LABS: Chloride 105 mmol/L (98-107)
[2024-04-19 06:38] LABS: Potassium 4.5 mmol/L (3.5-5.1); Sodium 140 mmol/L (136-145)
[2024-04-19 06:39] LABS: Anion Gap 5 (5-15); Calcium 9.3 mg/dL (8.7-10.4); Carbon Dioxide 30 mmol/L (20-31)
[2024-04-19 06:43] LABS: Glucose 94 mg/dL (74-106)
[2024-04-19 06:44] LABS: BUN/Creatinine Ratio 12.6 (10.0-20.0); Blood Urea Nitrogen 12 mg/dL (9-23)
[2024-04-19 09:00] VITALS: BP 112/60; PULSE 94; RESP 16; TEMP 97.9; O2SAT 90
[2024-04-19 09:08] LABS: Hepatitis B Surface Antigen Negative (Negative)
[2024-04-19 09:26] LABS: Hepatitis C Antibody Negative (Negative)
--- NOTE | 2024-04-19 11:42 | DVH ---
CT ABDOMEN AND PELVIS WITHOUT CONTRAST CLINICAL HISTORY: ABDOMINAL PAIN , SUPRA PUBIC CATHETER, UTI TECHNIQUE: Multiple contiguous axial images of the abdomen and pelvis without intravenous contrast. The images were reformatted degenerate coronal and sagittal reconstructions. All CT scans at this medical facility are performed using dose modulation techniques as appropriate t o a performed exam including the following:Automated exposure control was utilized; adjustment of the MA and/or KV according to patient size; and use of iterative reconstruction technique. Radiation Dose Information: CT Dose: CTDI volume is 16.38 mGy. Dose-length product is 928.65 mGy*cm Comparison: CT CHST AB PEL WO CON-NO IV/ORAL on DOS: 03/31/23 FINDINGS: Evaluation of the abdomen and pelvis is limited without intravenous contrast. There is a 2.9 cm cyst in the upper left kidney. There is no evidence of nephrolithiasis or hydroneph rosis. The liver, gallbladder, pancreas, adrenal glands, and spleen appear within normal limits. There is no gross evidence of abdominal lymphadenopathy. There is no free fluid or free air. The stomach grossly appears unremarkable. The small and large bowel loops demonstrate normal caliber . There are diverticula in the distal colon without evidence of acute diverticulitis. There is mode rate amount of stool in the distal colon. The abdominal aorta and IVC appear within normal limits. There is a suprapubic catheter within the bladder which is decompressed. Uterus appears bulky likely related to fibroid changes.. There is no gross evidence of a pelvic mass. There is no free fluid col lection. Lung bases are clear. There is no acute osseous abnormality. IMPRESSION: 1. There is no acute process in the abdomen and pelvis. 2. Distal colon diverticulosis. There is moderate amount of stool in the distal colon. 3. Fibroid uterus. 4. Suprapubic catheter within the bladder which is decompressed. HS:Y
[2024-04-19] MEDS ORDERED: LEVO750T40 PO (12:53)
[2024-04-19 13:00] VITALS: BP 120/61; PULSE 95; RESP 22; TEMP 98.9; O2SAT 94
--- NOTE | 2024-04-19 14:07 | DVHDSRES ---
Discharge Summary Date of Admission Resident Creating Document: ELBERT LARKIN RESIDENT Apr 15, 2024 at 19:14 Date of Discharge: Apr 19, 2024 Admitting Diagnosis Suprapubic pain likely UTI Labs/Diagnostic Data: Laboratory Results Test 04/19/24 05:41 04/16/24 05:03 04/15/24 14:15 White Blood Count 5.9 10^3/uL (4.4-10.8) Red Blood Count 4.44 10^6/uL (4.0-5.20) Hemoglobin 13.5 g/dL (12.2-16.2) Hematocrit 39.3 % (36.0-46.0) Mean Corpuscular Volume 88.5 fL (80.0-100.0) Mean Corpuscular Hemoglobin 30.3 pg (28.0-32.0) Mean Corpuscular Hemoglobin Concent 34.3 g/dL (32.0-36.0) Red Cell Distribution Width 14.1 % (11.8-14.3) Platelet Count 172 10^3/uL (140-450) Mean Platelet Volume 7.0 fL (6.9-10.8) Neutrophils (%) (Auto) 57.0 % (37.0-80.0) Lymphocytes (%) (Auto) 29.4 % (10.0-50.0) Monocytes (%) (Auto) 10.6 % (0.0-12.0) Eosinophils (%) (Auto) 2.6 % (0.0-7.0) Basophils (%) (Auto) 0.4 % (0.0-2.0) Neutrophils # (Auto) 3.3 10 ^3/uL (1.6-8.6) Lymphocytes # (Auto) 1.7 10 ^3/uL (0.4-5.4) Monocytes # (Auto) 0.6 10 ^3/uL (0-1.3) Eosinophils # (Auto) 0.1 10 ^3/uL (0-0.8) Basophils # (Auto) 0 10 ^3/uL (0-0.2) Nucleated Red Blood Cells 0.1 % Sodium Level 140 mmol/L (136-145) Potassium Level 4.5 mmol/L (3.5-5.1) Chloride Level 105 mmol/L (98-107) Carbon Dioxide Level 30 mmol/L (20-31) Anion Gap 5 (5-15) Blood Urea Nitrogen 12 mg/dL (9-23) Creatinine 0.95 mg/dL (0.550-1.02) Glomerular Filtration Rate Calc 67 mL/min (>90) BUN/Creatinine Ratio 12.6 (10.0-20.0) Serum Glucose 94 mg/dL (74-106) Calcium Level 9.3 mg/dL (8.7-10.4) Magnesium Level 2.0 mg/dL (1.6-2.6) Hemoglobin A1c 5.1 % A1C (<5.7) Total Bilirubin 0.4 mg/dL (0.2-1.0) Aspartate Amino Transferase (AST) 15 U/L (13-40) Alanine Aminotransferase (ALT) 16 U/L (7-40) Alkaline Phosphatase 61 U/L (46-116) Total Protein 5.8 g/dL (5.7-8.2) Albumin 3.5 g/dL (3.2-4.8) Thyroid Stimulating Hormone (TSH) 3.59 uIU/mL (0.55-4.78) Hepatitis B Surface Antigen Negative (Negative) Hepatitis C Antibody Negative (Negative) Urine Color Light-orange (Yellow) Urine Clarity Ex.turbid (Clear) Urine pH 5.5 (5.0-9.0) Urine Specific [place] 1.023 (1.001-1.035) Urine Protein 2+ (Negative) Urine Ketones Negative (Negative) Urine Blood 2+ /uL (Negative) Urine Nitrite 2+ (Negative) Urine Bilirubin Negative (Negative) Urine Urobilinogen Normal mg/dL (Negative) Urine Leukocyte Esterase 3+ /uL (Negative) Urine RBC 86 /hpf (0 - 4) Urine WBC 1206 /hpf (0 - 5) Urine WBC Clumps Present /hpf (None Seen) Urine Squamous Epithelial Cells Few /hpf (<5) Urine Bacteria Many /hpf (None Seen) Urine Mucus Few (None Seen) Urine Yeast (Budding) Moderate /hpf (None Seen) Urine Glucose Normal mg/dL (Normal) Other Laboratory Tests 04/19/24 05:41 Brief Hx & Hospital Course: Patient is 63 years old female with a history of neurogenic bladder, suprapubic catheter, peripheral neuropathy, thyroid disease, history of recurrent UTI, history of complicated UTI with ESBL, history of chronic insomnia, depression came with a complaint of lower abdominal pain. As per patient she has been having lower abdominal pain for last 3 days, which is crampy severe in nature, 10/10, increased with movement, no relieving factor, no radiation. -patient with suprapubic catheter for last 3 months. Patient reported feeling some dysuria or burning pain in the lower abdomen. Patient denied any fever, chest pain, shortness of breath, acute joint pain or swelling, dysarthria or change in vision. Patient has a history of UTI with ESBL E coli. Initial lab workup revealed WBC 9.2, serum creatinine 1.39, urinalysis significant for UTI with nitrite 2+, leukocyte esterase 3+, RBC 86, WBC 1206, bacteria many. Renal ultrasound revealed-Normal sonographic appearance of the kidneys. No hydronephrosis. During hospitalization patient was treated conservatively with IV antibiotic meropenem and IV fluid. Uterine culture no significant growth, 3 colony types. Patient is seen by Urology. Blood culture no growth, MRSA screening negative. Urologist Dr. Wolff recommended CT scan of the abdomen and pelvis. CT abdominal revealed- There is no acute process in the abdomen and pelvis. Distal colon diverticulosis. There is moderate amount of stool in the distal colon. Fibroid uterus. Suprapubic catheter within the bladder which is decompressed. Ultrasound of the abdomen revealed- Normal sonographic appearance of the kidneys. No hydronephrosis. Patient was discharged home with the antibiotic levofloxacin 750 mg q.d. changes. Patient was advised to follow up with the urologist for further evaluation of the suspected vesicovaginal fistula. And also for further care of the suprapubic catheter. Patient verbalized understanding. Patient was advised to follow up with the primary care physician in 1 week and with the urologist in 1-2 weeks. Patient meds were sent to the pharmacy electronically. Patient was hemodynamically stable on discharge PMH-neurogenic bladder, suprapubic catheter, peripheral neuropathy, thyroid disease, history of recurrent UTI, history of complicated UTI with ESBL, history of chronic insomnia, depression PSH- spinal surgery, suprapubic catheter Allergy- lactulose, Personal History/ Social history-denies smoking/alcoholism, smoking or drug abuse, lives at home Patient was seen today at the bedside. Patient suprapubic pain Cardiovascular- deny acute chest pain or shortness of breath or cough or palpitation Respiratory- denies cough or short of breath or wheezing Gastrointestinal- ++ suprapubic pain, denies any rectal bleeding, nausea or vomiting Musculoskeletal-denies acute joint swelling or tenderness or redness Neurological- denies acute dysarthria, dysphagia, change in vision Psychiatry- denies depression or SI or HI Skin- denies acute rash or purpura General examination- complained of suprapubic pain , patient with suprapubic catheter HEENT- PEERLA, no acute nasal discharge Cardiovascular- S1-S2 audible, rate and rhythm regular, no murmur Respiratory- CTAB, no wheeze or rhonchi Gastrointestinal- bowel sound+. Nondistended Musculoskeletal-no acute joint swelling or tenderness or redness# Lower extremity- no leg edema Neurological- cranial nerves intact, no acute dysarthria or dysphagia Psychiatry- denies depression or SI or HI Skin- no acute rash or purpura # sepsis due to UTI, history of recurrent UTI # UTI, history of recurrent UTI # neurogenic bladder # JOHANNY likely due to VMN # peripheral neuropathy # hypothyroidism # depression # chronic insomnia Operations or Procedures DIAGNOSTIC IMAGING Diagnostic Imaging Report : [id number] Signed PATIENT: CLEMENTE VERMA ACCT: [id number] UNIT: [id number] : 1960 LOC: [facility] ROOM / BED: 0239 / A AGE / SEX: 63 / F ADM STATUS: ADM IN SERVICE [id number] ORDERING PHYSICIAN: ELBERT LARKIN RESIDENT PROCEDURE(s): KIDUS - KIDNEY REASON: Dysuria ORDER NUMBER(s): [id number], ACCESSION NUMBER(s): [id number] INDICATION: Dysuria TECHNIQUE: Multiple real-time sonographic images of the kidneys and bladder were obtained. COMPARISON: None FINDINGS: The right kidney measures 9 cm in length, which is normal in size. There is normal echogenicity of the right kidney. No hydronephrosis. The left kidney measures 11 cm in length, which is normal in size. There is normal echogenicity of the left kidney. No hydronephrosis. No large intraluminal masses are seen in the bladder. IMPRESSION: 1. Normal sonographic appearance of the kidneys. No hydronephrosis. ATED BY: JOHN WICK MD DICTATED DATE/TIME: 04/16/24919 SIGNED BY: JOHN WICK MD SIGNED DATE/TIME: 04/16/24919 CC: [place] [id number] Ph: [phone] DIAGNOSTIC IMAGING Diagnostic Imaging Report : [id number] Signed PATIENT: CLEMENTE VERMA ACCT: [id number] UNIT: [id number] : 1960 LOC: [facility] ROOM / BED: 0244ADS / 5 AGE / SEX: 63 / F ADM STATUS: ADM IN SERVICE 8 ORDERING PHYSICIAN: ELBERT LARKIN RESIDENT PROCEDURE(s): ABPL - CT AB PEL WO CON-NO ORAL OR IV REASON: ABDOMINAL PAIN , SUPRA PUBIC CATHETER, UTI ORDER NUMBER(s): [id number], ACCESSION NUMBER(s): [id number] CT ABDOMEN AND PELVIS WITHOUT CONTRAST CLINICAL HISTORY: ABDOMINAL PAIN , SUPRA PUBIC CATHETER, UTI TECHNIQUE: Multiple contiguous axial images of the abdomen and pelvis without intravenous contrast. The images were reformatted degenerate coronal and sagittal reconstructions. All CT scans at this medical facility are performed using dose modulation techniques as appropriate to a performed exam including the following:Automated exposure control was utilized; adjustment of the MA and/or KV according to patient size; and use of iterative reconstruction technique. Radiation Dose Information: CT Dose: CTDI volume is 16.38 mGy. Dose-length product is 928.65 mGy*cm Comparison: CT CHST AB PEL WO CON-NO IV/ORAL on DOS: 03/31/23 FINDINGS: Evaluation of the abdomen and pelvis is limited without intravenous contrast. There is a 2.9 cm cyst in the upper left kidney. There is no evidence of nephrolithiasis or hydronephrosis. The liver, gallbladder, pancreas, adrenal glands, and spleen appear within normal limits. There is no gross evidence of abdominal lymphadenopathy. There is no free fluid or free air. The stomach grossly appears unremarkable. The small and large bowel loops demonstrate normal caliber. There are diverticula in the distal colon without evidence of acute diverticulitis. There is moderate amount of stool in the distal colon. The abdominal aorta and IVC appear within normal limits. There is a suprapubic catheter within the bladder which is decompressed. Uterus appears bulky likely related to fibroid changes.. There is no gross evidence of a pelvic mass. There is no free fluid collection. Lung bases are clear. There is no acute osseous abnormality. IMPRESSION: 1. There is no acute process in the abdomen and pelvis. 2. Distal colon diverticulosis. There is moderate amount of stool in the distal colon. 3. Fibroid uterus. 4. Suprapubic catheter within the bladder which is decompressed. HS:Y ATED BY: NOMI BLAIR MD DICTATED DATE/TIME: 04/19/24 1141 SIGNED BY: NOMI BLAIR MD SIGNED DATE/TIME: 04/19/24 1141 CC: Condition at Discharge: Stable Final Diagnosis/Problems List # Sepsis due to UTI, history of recurrent UTI # UTI, history of recurrent UTI # neurogenic bladder # JOHANNY likely due to VMN # peripheral neuropathy # hypothyroidism # depression # chronic insomnia Discharge Disposition: Home Discharge Instruct/Medications Diet: Regular Activity: Light activity Follow Up/Referral: Please follow up with the primary care physician in 1 week Follow up with your urologist in 1-2 weeks for further evaluation of vesicovaginal fistula likely for a fistulogram Drink plenty of water, avoid dehydration and nephrotoxic drugs, Cranberry juices Medications: Levofloxacin 750 mg as prescribed Resume other home medication Discharge Statement: "Patient was advised to return to the ER or call 911 if any headaches, dizziness, shortness of breath, chest pain, abdominal pain, bleeding, fevers, or worsening of medical condition. Patient was counseled about treatment plan, medications, possible side effects, patientverbalized understanding. All questions were answered to the best of my ability. This discharge took greater then 30 minutes in planning, reviewing documentation, counseling the patient, and discussing with other team members." ASSESSMENT ASSESSMENT Assessment # sepsis due to UTI, history of recurrent UTI Date of Service: Apr 19, 2024 Billing Provider: VANDANA MA MD Common Visit Codes: 26049-QOZ/OBS DISCH DAY >30min ELBERT LARKIN Apr 19, 2024 14:07 VANDANA MA MD Apr 19, 2024 17:31
== END 2024-04-19 16:44 | disposition home or self-care (01) | DRG 463 ==
LOC: ER 13:57 → OVERFLOW 19:14 → EAST 04-16 00:45
PROVIDERS: ADMIT Internal Medicine Geriatric Medicine; ATTEND Emergency Medicine
DX: N30.01 Acute cystitis with hematuria (principal); N17.0 Acute kidney failure with tubular necrosis; D25.9 Leiomyoma of uterus, unspecified; E03.9 Hypothyroidism, unspecified; N31.9 Neuromuscular dysfunction of bladder, unspecified; K57.30 Diverticulosis of large intestine without perforation or abscess without bleeding; G47.00 Insomnia, unspecified; F32.A Depression, unspecified; F41.9 Anxiety disorder, unspecified; G62.9 Polyneuropathy, unspecified; Z88.8 Allergy status to other drugs, medicaments and biological substances; Z79.899 Other long term (current) drug therapy
CPT/HCPCS: 36415; 74176; 76775; 80048; 80053; 81001; 83036; 83735; 84443; 85025; 86803; 87040; 87081; 87086; 87340; G0378; J1335; J2185; J2405; J3490

== ENCOUNTER 2024-04-30 15:40 | Inpatient (IN) | payer MEDICAID ==
[~2024-04-30] VITALS: Ht 160 cm; Wt 86.2 kg
[~2024-04-30 15:40] MED LIST changes: -GABA-1250 PO; +LEVO750T40 PO; -PANT40T PO; -RIS1T PO; +RISP2TAB28 PO
[2024-04-30 18:30] LABS: Hematocrit 43.8 % (36.0-46.0); Hemoglobin 14.9 g/dL (12.2-16.2); Mean Corpuscular Hemoglobin 29.6 pg (28.0-32.0); Mean Corpuscular Volume 87.2 fL (80.0-100.0); Platelet Count (auto) 405 10^3/uL (140-450); Red Blood Cells 5.02 10^6/uL (4.0-5.20); Red Cell Distribution Width 14.1 % (11.8-14.3)
[2024-04-30 18:33] LABS: Basophils % (manual) 0 (0.0-2.0); Blast Cells 0; Metamyelocytes % 0; Myelocytes % 0; Promyelocytes % 0; Reactive Lymphocytes 0
[2024-04-30 18:38] LABS: Albumin 3.2 g/dL (3.2-4.8); Alkaline Phosphatase 102 U/L (46-116); Anion Gap 9 (5-15); Aspartate Aminotransferase 24 U/L (13-40); BUN/Creatinine Ratio 30.4 (10.0-20.0); Calcium 9.3 mg/dL (8.7-10.4); Carbon Dioxide 26 mmol/L (20-31); Glucose 101 mg/dL (74-106); Potassium 4.3 mmol/L (3.5-5.1)
[2024-04-30 18:39] LABS: Bilirubin, Total 0.7 mg/dL (0.2-1.0); Lactic Acid w/Reflex 2.5 mmol/L (0.4-2.0); Total Protein 5.8 g/dL (5.7-8.2)
[2024-04-30 18:40] LABS: Alanine Aminotransferase 43 U/L (7-40); Blood Urea Nitrogen 24 mg/dL (9-23); Chloride 110 mmol/L (98-107); Sodium 145 mmol/L (136-145)
[2024-04-30 18:41] LABS: Base Excess 2.4 mmol/L (-2.0-3.0)
--- NOTE | 2024-04-30 18:42 | DVH ---
CHEST RADIOGRAPH Indication: sob Technique: Single frontal view of the chest was obtained Comparison: XY CHEST PORTABLE on DOS: 03/31/23, CHEST PORTABLE on DOS: 06/05/22, CXRP on DOS: 06/05/22 Findings/ IMPRESSION: Prominent opacification in the left lower perihilar region which was not present on prior study and m ay be due to chronic interstitial process or pulmonary vascular congestion but superimposed infection can not be excluded.
--- NOTE | 2024-04-30 18:53 | ED.PDOC ---
SOB-HPI HPI Comments HPI: Poor Historian. 63 Y F presents to the ED with CC of SOB. Patient states, that she has been feeling short of breath since 04/29/24 with associated symptoms of chest pressure. Patient, was discharged from [facility] on 04/29/24 for DX UTI. Patient denies fever, chills, any bleeding, or N/V/D. Patient denies any current medications and is currently not on blood thinners. Patient denies any recent surgeries. Initial Vital Signs: Temp : BP:119/51 HR:103 RR:22 SpO2: 96 Past Medical History: COPD, HYPERTHYROID, suprapubic catheter Past Surgical History: Denies Social History: Denies smoking, ETOH, or drug use. Medications: No medications. Allergies: NKDA REVIEW OF SYSTEMS: CONSTITUTIONAL: Denies acute: fever, diaphoresis, chills, HEAD: Denies acute: headache, photophobia Eyes: Denies acute: Double vision, vision loss, eye pain, eye discharge. EARS: Denies acute: tinnitus, hearing loss, ear discharge, ear pain, THROAT: Denies acute: sore throat, swelling, difficulty swallowing , pain with swallowing, change in voice. NECK: Denies acute: neck pain, neck swelling, stiff neck. HEART: Denies acute : palpitations, LUNGS: Denies acute: wheezing, cough, hemoptysis ABDOMEN: Denies acute: abdominal pain, Nausea, Vomiting, diarrhea, melena , hematemesis, hematochezia SKIN: Denies acute: rash, redness, lesions, itchiness. EXTREMITIES: Denies acute: calf pain, numbness, tingling, weakness, denies pain in extremity. Denies acute: Low back pain. Neuro: Denies acute: focal neurological deficit, motor or sensory focal neurological deficit, tremors, seizure like activity, confusion, dizziness, change in mental status, loss of bowel or bladder function, cauda equina like symptoms. : Denies acute: dysuria, hematuria, flank pain, increase in urinary frequency. PSYCH: Denies acute: hallucination, suicidal ideation, homicidal ideation. FEMALE: Denies acute: abnormal vaginal bleeding, foul odor, unusual discharge. PHYSICAL EXAM: General: Mild acute distress, awake and alert. Head: normocephalic, atraumatic. Neck: supple, trachea is midline, no swelling. Throat: Normal phonation. Eyes:, no erythema, no purulent discharge, no proptosis, no icterus. Heart: regular rate, regular rhythm, no significant murmur appreciated. Lungs: Mild to moderate respiratory distress, Able to speak in full sentences. No wheezing, minimal rhonchi, no crackles. No stridors Abdomen: non tender to palpation, non distended, soft, no guarding, no rebound, + bowel sounds. History of suprapubic catheter. Normal urine color in the bag. Neuro: Awake, Alert, oriented to name, self, situation, follows commands GCS=15. Speech is normal. Skin: no petechia, no purpura, no cyanosis, non-pale, not jaundice. Lower extremities: --trace bilateral - Pitting edema no deformity, no focal swelling, no calf TTP. Makes eye contact. moves all four extremities. Face: no apparent facial droop. Chief Complaint: Shortness of Breath Time Seen by MD: 18:51 Primary Care Provider: ERICH Carson notes: Nurses Notes, Medications, Allergies Information Source: Patient Mode of Arrival: EMS Severity: Mild Timing: Days Duration: Days History of: COPD Prehospital treatment: Breathing Tx Modifying Factors: Nothing Associated Signs and Symptoms: Other (chest pressure) Quality: Pressure Radiation: No Radiation Was a procedure done? Was a procedure done?: No Differential Dx Differential Diagnosis: Asthma, Bronchitis, Sinusitis, Pharyngitis, URI X-Ray, Labs, Meds, VS Vital Signs Date Time Temp Pulse Resp B/P (MAP) Pulse Ox O2 Delivery O2 Flow Rate FiO2 04/30/24 19:13 97.5 110 24 110/72 (85) 93 97.5 04/30/24 15:49 103 22 119/51 (73) 96 Lab Test 04/30/24 19:55 04/30/24 18:32 04/30/24 18:00 04/30/24 00:00 Range/Units Lactic Acid Level 1.6 2.5 *H 0.4-2.0 mmol/L Troponin I High Sensitivity 4 4 </=34 ng/L Blood Gas Specimen Type Arterial Blood Gas Sample Site Right radial Blood Gas Patient Temperature 37.0 Arterial Blood Date Drawn [id number] Arterial Blood pH 7.548 H 7.350-7.450 Arterial Blood Partial Pressure CO2 27.6 L 32.0-45.0 mmHg Arterial Blood Partial Pressure O2 57.3 L 83.0-108.0 mmHg Arterial Blood HCO3 23.5 21.0-28.0 mmol/L Arterial Blood Oxygen Saturation 91.3 L 94.0-98.0 % Arterial Blood Base Excess 2.4 -2.0-3.0 mmol/L Arterial Blood Oxyhemoglobin 90.3 L 94.0-98.0 % Arterial Blood Carboxyhemoglobin 0.8 0.5-1.5 % Arterial Blood Methemoglobin 0.3 0.0-1.5 % Jer Test Yes Blood Gas Total Hemoglobin 15.50 12.0-16.0 g/dL Blood Gas Modality Room air FiO2 % 21.0 White Blood Count 27.0 H 4.4-10.8 10^3/uL Red Blood Count 5.02 4.0-5.20 10^6/uL Hemoglobin 14.9 12.2-16.2 g/dL Hematocrit 43.8 36.0-46.0 % Mean Corpuscular Volume 87.2 80.0-100.0 fL Mean Corpuscular Hemoglobin 29.6 28.0-32.0 pg Mean Corpuscular Hemoglobin Concent 34.0 32.0-36.0 g/dL Red Cell Distribution Width 14.1 11.8-14.3 % Platelet Count 405 140-450 10^3/uL Mean Platelet Volume 7.1 6.9-10.8 fL Neutrophils (%) (Auto) 37.0-80.0 % Lymphocytes (%) (Auto) 10.0-50.0 % Monocytes (%) (Auto) 0.0-12.0 % Basophils (%) (Auto) 0.0-2.0 % Neutrophils # (Auto) 1.6-8.6 10 ^3/uL Lymphocytes # (Auto) 0.4-5.4 10 ^3/uL Monocytes # (Auto) 0-1.3 10 ^3/uL Differential Total Cells Counted 100.0 100 Neutrophils % (Manual) 63 37.0-80.0 Band Neutrophils % (Manual) 6 Lymphocytes % (Manual) 17 10.0-50.0 Monocytes % (Manual) 13 H 0-12 Eosinophils % (Manual) 1 0-7 Basophils % (Manual) 0 0.0-2.0 Metamyelocytes % (manual) 0 Myelocytes % (Manual) 0 Promyelocytes % (Manual) 0 Blast Cells % (Manual) 0 Reactive Lymphocytes 0 Platelet Estimate Adequate Prothrombin Time 11.4 9.3-11.8 sec Prothrombin Time INR 1.08 0.9-1.15 Activated Partial Thromboplast Time 22.5 L 24.5-34.5 SEC D-Dimer, Quantitative 4.89 H 0.0-0.49 mg/L FEU Sodium Level 145 136-145 mmol/L Potassium Level 4.3 3.5-5.1 mmol/L Chloride Level 110 H 98-107 mmol/L Carbon Dioxide Level 26 20-31 mmol/L Anion Gap 9 5-15 Blood Urea Nitrogen 24 H 9-23 mg/dL Creatinine 0.79 0.550-1.02 mg/dL Glomerular Filtration Rate Calc 84 >90 mL/min BUN/Creatinine Ratio 30.4 H 10.0-20.0 Serum Glucose 101 74-106 mg/dL Calcium Level 9.3 8.7-10.4 mg/dL Total Bilirubin 0.7 0.2-1.0 mg/dL Aspartate Amino Transferase (AST) 24 13-40 U/L Alanine Aminotransferase (ALT) 43 H 7-40 U/L Alkaline Phosphatase 102 46-116 U/L B-Type Natriuretic Peptide 56.81 0-100 pg/mL Total Protein 5.8 5.7-8.2 g/dL Albumin 3.2 3.2-4.8 g/dL Influenza Type A Antigen Negative Negative Influenza Type B Antigen Negative Negative SARS-CoV-2 Antigen (Rapid) Negative NEGATIVE Current Medications Medications (Trade) Dose Ordered Sig/Mindy Route Start Time Stop Time Status Last Admin Ceftriaxone Sodium 50 ml @ 100 mls/hr ONCE ONCE IV 04/30/24 19:00 04/30/24 19:29 DC 04/30/24 22:07 Enoxaparin Sodium (Lovenox) 70 mg ONCE STAT SC 04/30/24 19:03 04/30/24 19:04 DC 04/30/24 22:07 Methylprednisolone Sodium Succinate (Solu Medrol) 80 mg ONCE ONCE IV 04/30/24 20:30 04/30/24 20:42 DC 04/30/24 22:[address] [address] Ph: [phone] DIAGNOSTIC IMAGING Diagnostic Imaging Report : [id number] Signed PATIENT: CLEMENTE VERMA ACCT: [id number] UNIT: [id number] : 1960 LOC: ER ROOM / BED: / AGE / SEX: 63 / F ADM STATUS: REG ER SERVICE 175 ORDERING PHYSICIAN: DAVY TAVERA DO PROCEDURE(s): CXRP - CHEST PORTABLE REASON: sob ORDER NUMBER(s): [id number], ACCESSION NUMBER(s): [id number] CHEST RADIOGRAPH Indication: sob Technique: Single frontal view of the chest was obtained Comparison: XY CHEST PORTABLE on DOS: 03/31/23, CHEST PORTABLE on DOS: 06/05/22, CXRP on DOS: 06/05/22 Findings/ IMPRESSION: Prominent opacification in the left lower perihilar region which was not present on prior study and may be due to chronic interstitial process or pulmonary vascular congestion but superimposed infection can not be excluded. ATED BY: SAMY NOBLE DO DICTATED DATE/TIME: 04/30/241839 SIGNED BY: SAMY NOBLE DO SIGNED DATE/TIME: 04/30/241839 CC: [place] [address] Ph: [phone] DIAGNOSTIC IMAGING Diagnostic Imaging Report : [id number] Signed PATIENT: CLEMENTE VERMA ACCT: [id number] UNIT: [id number] : 1960 LOC: ER ROOM / BED: / AGE / SEX: 63 / F ADM STATUS: REG ER SERVICE 184 ORDERING PHYSICIAN: DAVY TAVERA DO PROCEDURE(s): CTACH - CT ANGIO CHEST CONTRAST REASON: sob ORDER NUMBER(s): [id number], ACCESSION NUMBER(s): [id number] EXAM: CT CT ANGIO CHEST CONTRAST History: sob Comparison Study: None available TECHNIQUE: A digital supervisor nut processing image was obtained. During the uneventful, intravenous administration of contrast material, multislice data acquisition was obtained through the chest. 3-D postprocessing is performed by technologist including MIP imaging Radiation Dose : CTDI vol 23.02 mGy, DLP 726.74 mGy*cm. Findings: Lungs: Multifocal groundglass opacities with consolidations in the bilateral lower lobes. Pleura: Unremarkable Heart/Great vessels: The visualized heart is unremarkable. No cardiomegaly or pericardial effusion. No aneurysm or dissection. Small subsegmental pulmonary emboli in the right lower lobe. Mediastinum: Slightly prominent mediastinal nodes. Soft tissues/Bones: Mild multilevel degenerative changes of the thoracic spine. Left renal cyst. The partially visualized upper abdomen is within normal limits. Impression: 1. Small subsegmental pulmonary emboli in the right lower lobe. 2. No evidence of aortic aneurysm or dissection. 3. Multifocal groundglass opacities with consolidations in the bilateral lower lobes favor an infectious/inflammatory etiology. 4. Reactive mediastinal nodes. Critical Result: Pumonary Emboli Findings discussed with DAVY TAVERA at 04/30/2024 08:09 PM, and acknowledged receipt and understanding of the findings. ATED BY: KERI VERDIN DO DICTATED DATE/TIME: 04/30/242009 SIGNED BY: KERI VERDIN DO SIGNED DATE/TIME: 04/30/242009 CC: Time of 1ST Reevaluation: 19:21 Reevaluation 1ST: Unchanged Comments Patient presented with the above workup 63 Y F presents to the ED with CC of SOB. Patient states, that she has been feeling short of breath since 04/29/24 with associated symptoms of chest pressure. Patient was found with the above mentioned diagnosis. the following medications were ordered: ENOXAPARIN SODIUM 70 MG, CEFTRIAXONN 1MG/50ML the following tests were ordered: LABS, UA, CXR, EKG CT ANGIO Patient ED course and VS have been stabilized. Patient has been reassessed in the ED and remained in a stable condition. Pertinent incidental findings were discussed with the patient and/or family. Patient/family voices understanding and is agreeable with plan. Patient has been observed in the ED adequate length of time to insure improvement/stability. Escalation of care considered: Consideration of escalation to observation or admission Patient was ADMITTED to the medicine team for further evaluation and treatment of their presentation. All the reports of any imaging studies that were ordered by myself were reviewed by myself. Departure 1 Departure Time of Disposition: 19:13 Impression: Primary Impression: Hypoxemia Additional Impressions: Respiratory distress Chest pressure Leukocytosis Pneumonia Pulmonary embolus Disposition: ADMITTED INPATIENT Admit to: Tele Condition: Guarded Additional Instructions: [address] [address] Ph: [phone] DIAGNOSTIC IMAGING Diagnostic Imaging Report : [id number] Signed PATIENT: CLEMENTE VERMA ACCT: [id number] UNIT: [id number] : 1960 LOC: ER ROOM / BED: / AGE / SEX: 63 / F ADM STATUS: REG ER SERVICE 175 ORDERING PHYSICIAN: DAVY TAVERA DO PROCEDURE(s): CXRP - CHEST PORTABLE REASON: sob ORDER NUMBER(s): [id number], ACCESSION NUMBER(s): [id number] CHEST RADIOGRAPH Indication: sob Technique: Single frontal view of the chest was obtained Comparison: XY CHEST PORTABLE on DOS: 03/31/23, CHEST PORTABLE on DOS: 06/05/22, CXRP on DOS: 06/05/22 Findings/ IMPRESSION: Prominent opacification in the left lower perihilar region which was not present on prior study and may be due to chronic interstitial process or pulmonary vascular congestion but superimposed infection can not be excluded. ATED BY: SAMY NOBLE DO DICTATED DATE/TIME: 04/30/241839 SIGNED BY: SAMY NOBLE DO SIGNED DATE/TIME: 04/30/241839 CC: [address] [address] Ph: [phone] DIAGNOSTIC IMAGING Diagnostic Imaging Report : [id number] Signed PATIENT: CLEMENTE VERMA ACCT: [id number] UNIT: [id number] : 1960 LOC: ER ROOM / BED: / AGE / SEX: 63 / F ADM STATUS: REG ER SERVICE 184 ORDERING PHYSICIAN: DAVY TAVERA DO PROCEDURE(s): CTACH - CT ANGIO CHEST CONTRAST REASON: sob ORDER NUMBER(s): [id number], ACCESSION NUMBER(s): [id number] EXAM: CT CT ANGIO CHEST CONTRAST History: sob Comparison Study: None available TECHNIQUE: A digital supervisor nut processing image was obtained. During the uneventful, intravenous administration of contrast material, multislice data acquisition was obtained through the chest. 3-D postprocessing is performed by technologist including MIP imaging Radiation Dose : CTDI vol 23.02 mGy, DLP 726.74 mGy*cm. Findings: Lungs: Multifocal groundglass opacities with consolidations in the bilateral lower lobes. Pleura: Unremarkable Heart/Great vessels: The visualized heart is unremarkable. No cardiomegaly or pericardial effusion. No aneurysm or dissection. Small subsegmental pulmonary emboli in the right lower lobe. Mediastinum: Slightly prominent mediastinal nodes. Soft tissues/Bones: Mild multilevel degenerative changes of the thoracic spine. Left renal cyst. The partially visualized upper abdomen is within normal limits. Impression: 1. Small subsegmental pulmonary emboli in the right lower lobe. 2. No evidence of aortic aneurysm or dissection. 3. Multifocal groundglass opacities with consolidations in the bilateral lower lobes favor an infectious/inflammatory etiology. 4. Reactive mediastinal nodes. Critical Result: Pumonary Emboli Findings discussed with DAVY TAVERA at 04/30/2024 08:09 PM, and acknowledged receipt and understanding of the findings. ATED BY: KERI VERDIN DO DICTATED DATE/TIME: 04/30/242009 SIGNED BY: KERI VERDIN DO SIGNED DATE/TIME: 04/30/242009 CC: Discharged With: Self Critical Care Note Critical Care Time?: No Stability Stability form required: No I personally scribed for DAVY TAVERA DO ([email or web address]) on 04/30/24 at 18:53. Electronically submitted by Felicity Palacios ([email or web address]). I personally scribed for DAVY TAVERA DO ([email or web address]) on 04/30/24 at 18:56. Electronically submitted by Felicity Palacios ([email or web address]). I personally scribed for DAVY TAVERA DO ([email or web address]) on 04/30/24 at 19:09. Electronically submitted by Felicity Palacios ([email or web address]). I personally scribed for DAVY TAVERA DO ([email or web address]) on 04/30/24 at 20:53. Electronically submitted by Felicity Palacios ([email or web address]). I personally scribed for DAVY TAVERA DO ([email or web address]) on 04/30/24 at 20:56. Electronically submitted by Felicity Palacios ([email or web address]). I personally scribed for DAVY TAVERA DO ([email or web address]) on 04/30/24 at 22:26. Electronically submitted by Felicity Palacios ([email or web address]). I personally scribed for DAVY TAVERA DO ([email or web address]) on 04/30/24 at 22:30. Electronically submitted by Felicity Palacios ([email or web address]). DAVY TAVERA DO Apr 30, 2024 18:53
[2024-04-30 18:55] LABS: Band Neutrophils % (manual) 6; Eosinophils % (manual) 1 (0-7); Lymphocytes % (manual) 17 (10.0-50.0); Monocytes % (manual) 13 (0-12); Platelet Estimate Adequate
[2024-04-30 19:41] LABS: INR 1.08 (0.9-1.15); Partial Thromboplastin Time 22.5 SEC (24.5-34.5); Prothrombin Time 11.4 sec (9.3-11.8)
--- NOTE | 2024-04-30 20:13 | DVH ---
EXAM: CT CT ANGIO CHEST CONTRAST History: sob Comparison Study: None available TECHNIQUE: A digital sound assistant image was obtained. During the uneventful, intravenous administration of c ontrast material, multislice data acquisition was obtained through the chest. 3-D postprocessing is performed by technologist including MIP imaging Radiation Dose : CTDI vol 23.02 mGy, DLP 726.74 mGy*cm. Findings: Lungs: Multifocal groundglass opacities with consolidations in the bilateral lower lobes. Pleura: Unremarkable Heart/Great vessels: The visualized heart is unremarkable. No cardiomegaly or pericardial effusion. N o aneurysm or dissection. Small subsegmental pulmonary emboli in the right lower lobe. Mediastinum: Slightly prominent mediastinal nodes. Soft tissues/Bones: Mild multilevel degenerative changes of the thoracic spine. Left renal cyst. The partially visualized upper abdomen is within normal limits. Impression: 1. Small subsegmental pulmonary emboli in the right lower lobe. 2. No evidence of aortic aneurysm or dissection. 3. Multifocal groundglass opacities with consolidations in the bilateral lower lobes favor an infecti ous/inflammatory etiology. 4. Reactive mediastinal nodes. Critical Result: Pumonary Emboli Findings discussed with DAVY TAVERA at 04/30/2024 08:09 PM, and acknowledged receipt and understandin g of the findings.
[2024-04-30 20:19] LABS: COVID19 ANTIGEN SOFIA FIA NEGATIVE (NEGATIVE)
[2024-04-30 20:20] LABS: Rapid Influenza A Negative (Negative); Rapid Influenza B Negative (Negative)
[2024-04-30] MEDS ORDERED: MORPHINE SULFATE INJ 2 MG/ml SYRG IV PRN (21:00)
[2024-04-30] MEDS ORDERED: NITROGLYCERIN 0.4 MG SL TAB SL PRN (21:00)
--- NOTE | 2024-04-30 21:35 | DVHHP2 ---
History of Present Illness Reason for Visit: Pulmonary embolus History of Present Illness The patient is a 63-year-old female with past medical history of COPD and thyroid disease who presented to [facility] ED with complaint of shortness of breaths with hypoxia. Patient was recently discharged from this facility on April 29, 2024 following treatment of urinary tract infection. Patient was seen and evaluated in the ED, laboratory data shows elevated WBC 27.0, platelets 405, sodium 145, potassium 4.3, BUN 24, creatinine 0.79, GFR 84, glucose 101, lactic acid 2.5, AST 24, ALT 43, D-dimer 4.89, blood pressure 119/72, heart rate 110, temperature 97.5 F, O2 saturation 93% on oxygen. CT Angiography revealing small subsegmental pulmonary emboli in the right lower lobe, multifocal ground-glass opacities with consolidations in the bilateral lower lobes favor an infectious/inflammatory etiology. Patient was started on Lovenox, please see medication orders section in the computer. On my assessment, patient denied chest pain, no headache, no dizziness, no diaphoresis, currently on oxygen, no diarrhea, no nausea, no vomiting, no fever, no chills. Patient was admitted for further evaluation and medical management. Past Medical History COPD, HYPERTHYROID Past Surgical History suprapubic catheter Family History Reviewed, noncontributory to the management of this case. Past Social History The patient lives at home, denies smoking, alcohol or illicit drugs abuse. Review of Systems Constitutional: Yes: Weakness, Other (Fatigue); No: Fever, Chills, Sweats, Malaise Eyes: No: Pain, Vision change, Conjunctivae inflammation, Eyelid inflammation, Other, Redness ENT: No: Ear pain, Ear discharge, Nose pain, Nose discharge, Nose congestion, Mouth pain, Mouth swelling, Throat pain, Throat swelling, Other Respiratory: Shortness of breath, SOB with excertion, Other (SOB at rest); No: Cough, Dry, Wheezing, Hemoptysis, Pleuritic Pain, Sputum, Wheezing Cardiovascular: Chest Pain; No: Palpitations, Orthopnea, Paroxysmal Noc. Dyspnea, Edema, Lt Headedness, Other Gastrointestinal: No: Nausea, Vomiting, Abdominal Pain, Diarrhea, Constipation, Melena, Hematochezia, Other Genitourinary: No Dysuria, No Frequency, No Incontinence, No Hematuria, No Retention, No Other Musculoskeletal: No: other, neck pain, shoulder pain, arm pain, back pain, hand pain, leg pain, foot pain Skin: No: Rash, Lesions, Jaundice, Bruising, Other Neurological: No: Weakness, Numbness, Incoordination, Change in speech, Confusion, Seizures, Other Allergies: Coded Allergies: Lactose (Verified Allergy, Unknown, 07/18/20) Medications Current Medications Medications Dose Ordered Sig/Mindy Route Start Time Stop Time Status Last Admin Dose Admin Ceftriaxone Sodium 50 ml @ 100 mls/hr DAILY@09 IV 05/01/24 09:00 Levothyroxine Sodium 25 mcg QAM@0600 PO 05/01/24 06:00 Methylprednisolone Sodium Succinate 40 mg BID IV 04/30/24 22:00 UNV Famotidine 20 mg Q12HR IV 04/30/24 22:00 Sodium Chloride 10 ml Q8HR IV 04/30/24 22:00 Acetaminophen/ Hydrocodone Bitart 1 tab Q4HP PRN PO 04/30/24 20:30 Ondansetron HCl 4 mg Q4HP PRN IV 04/30/24 20:30 Docusate Sodium 100 mg BIDPRN PRN PO 04/30/24 20:30 Acetaminophen 650 mg Q6HP PRN PO 04/30/24 20:30 Enoxaparin Sodium 70 mg Q12HR SC 04/30/24 22:00 UNV Azithromycin 250 ml @ 125 mls/hr DAILY IV 05/01/24 10:00 UNV Exam Vital Signs Vital Signs Date Time Temp Pulse Resp B/P (MAP) Pulse Ox O2 Delivery O2 Flow Rate FiO2 04/30/24 19:13 97.5 110 24 110/72 (85) 93 97.5 General Appearance: Alert, Oriented X3, Cooperative, No acute distress HEENT: Atraumatic, PERRLA, EOMI, Mucous membr. moist/pink Respiratory: Normal air movement, Other (Diminished breath sounds) Cardiovascular: Regular rate, Normal S1, Normal S2, No murmurs Abdominal: Normal bowel sounds, Soft, No tenderness, No hepatospenomegaly, No masses Extremities: No clubbing, No cyanosis, No edema, Normal pulses, No tenderness/swelling Skin: No rashes, No breakdown, No significant lesion Neuro: Normal speech, Normal tone, Sensation intact, Cranial nerves 3-12 NL, Reflexes 2+, Other (Generalized weakness) Psych/Mental Status: Mental status NL, Mood NL Labs/Xrays Labs Test 04/30/24 19:55 04/30/24 18:32 04/30/24 18:00 04/30/24 00:00 Range/Units Blood Gas Specimen Type Arterial Blood Gas Sample Site Right radial Blood Gas Patient Temperature 37.0 Arterial Blood Date Drawn [id number] Arterial Blood pH 7.548 H 7.350-7.450 Arterial Blood Partial Pressure CO2 27.6 L 32.0-45.0 mmHg Arterial Blood Partial Pressure O2 57.3 L 83.0-108.0 mmHg Arterial Blood HCO3 23.5 21.0-28.0 mmol/L Arterial Blood Oxygen Saturation 91.3 L 94.0-98.0 % Arterial Blood Base Excess 2.4 -2.0-3.0 mmol/L Arterial Blood Oxyhemoglobin 90.3 L 94.0-98.0 % Arterial Blood Carboxyhemoglobin 0.8 0.5-1.5 % Arterial Blood Methemoglobin 0.3 0.0-1.5 % Jer Test Yes Blood Gas Total Hemoglobin 15.50 12.0-16.0 g/dL Blood Gas Modality Room air FiO2 % 21.0 White Blood Count 27.0 H 4.4-10.8 10^3/uL Red Blood Count 5.02 4.0-5.20 10^6/uL Hemoglobin 14.9 12.2-16.2 g/dL Hematocrit 43.8 36.0-46.0 % Mean Corpuscular Volume 87.2 80.0-100.0 fL Mean Corpuscular Hemoglobin 29.6 28.0-32.0 pg Mean Corpuscular Hemoglobin Concent 34.0 32.0-36.0 g/dL Red Cell Distribution Width 14.1 11.8-14.3 % Platelet Count 405 140-450 10^3/uL Mean Platelet Volume 7.1 6.9-10.8 fL Neutrophils (%) (Auto) 37.0-80.0 % Lymphocytes (%) (Auto) 10.0-50.0 % Monocytes (%) (Auto) 0.0-12.0 % Basophils (%) (Auto) 0.0-2.0 % Neutrophils # (Auto) 1.6-8.6 10 ^3/uL Lymphocytes # (Auto) 0.4-5.4 10 ^3/uL Monocytes # (Auto) 0-1.3 10 ^3/uL Differential Total Cells Counted 100.0 100 Neutrophils % (Manual) 63 37.0-80.0 Band Neutrophils % (Manual) 6 Lymphocytes % (Manual) 17 10.0-50.0 Monocytes % (Manual) 13 H 0-12 Eosinophils % (Manual) 1 0-7 Basophils % (Manual) 0 0.0-2.0 Metamyelocytes % (manual) 0 Myelocytes % (Manual) 0 Promyelocytes % (Manual) 0 Blast Cells % (Manual) 0 Reactive Lymphocytes 0 Platelet Estimate Adequate Prothrombin Time 11.4 9.3-11.8 sec Prothrombin Time INR 1.08 0.9-1.15 Activated Partial Thromboplast Time 22.5 L 24.5-34.5 SEC D-Dimer, Quantitative 4.89 H 0.0-0.49 mg/L FEU Sodium Level 145 136-145 mmol/L Potassium Level 4.3 3.5-5.1 mmol/L Chloride Level 110 H 98-107 mmol/L Carbon Dioxide Level 26 20-31 mmol/L Anion Gap 9 5-15 Blood Urea Nitrogen 24 H 9-23 mg/dL Creatinine 0.79 0.550-1.02 mg/dL Glomerular Filtration Rate Calc 84 >90 mL/min BUN/Creatinine Ratio 30.4 H 10.0-20.0 Serum Glucose 101 74-106 mg/dL Calcium Level 9.3 8.7-10.4 mg/dL Total Bilirubin 0.7 0.2-1.0 mg/dL Aspartate Amino Transferase (AST) 24 13-40 U/L Alanine Aminotransferase (ALT) 43 H 7-40 U/L Alkaline Phosphatase 102 46-116 U/L B-Type Natriuretic Peptide 56.81 0-100 pg/mL Total Protein 5.8 5.7-8.2 g/dL Albumin 3.2 3.2-4.8 g/dL Influenza Type A Antigen Negative Negative Influenza Type B Antigen Negative Negative SARS-CoV-2 Antigen (Rapid) Negative NEGATIVE PATIENT: CLEMENTE VERMA ACCT: [id number] UNIT: [id number] : 1960 LOC: ER ROOM / BED: / AGE / SEX: 63 / F ADM STATUS: REG ER SERVICE 1847 ORDERING PHYSICIAN: DAVY TAVERA DO PROCEDURE(s): CTACH - CT ANGIO CHEST CONTRAST REASON: sob ORDER NUMBER(s): [id number], ACCESSION NUMBER(s): [id number] EXAM: CT CT ANGIO CHEST CONTRAST History: sob Comparison Study: None available TECHNIQUE: A digital auto appraiser image was obtained. During the uneventful, intr avenous administration of contrast material, multislice data acquisition was obtained through the chest. 3-D postprocessing is performed by technologist including MIP imaging Radiation Dose : CTDI vol 23.02 mGy, DLP 726.74 mGy*cm. Findings: Lungs: Multifocal groundglass opacities with consolidations in the bilateral lower lobes. Pleura: Unremarkable Heart/Great vessels: The visualized heart is unremarkable. No cardiomegaly or pericardial effusion. No aneurysm or dissection. Small subsegmental pulmonary e mboli in the right lower lobe. Mediastinum: Slightly prominent mediastinal nodes. Soft tissues/Bones: Mild multilevel degenerative changes of the thoracic spine. Left renal cyst. The partially visualized upper abdomen is within normal limits. Impression: 1. Small subsegmental pulmonary emboli in the right lower lobe. 2. No evidence of aortic aneurysm or dissection. 3. Multifocal groundglass opacities with consolidations in the bilateral lower lobes favor an infectious/inflammatory etiology. 4. Reactive mediastinal nodes. Critical Result: Pumonary Emboli ORDERING PHYSICIAN: DAVY TAVERA DO PROCEDURE(s): CXRP - CHEST PORTABLE REASON: sob ORDER NUMBER(s): [id number], ACCESSION NUMBER(s): [id number] CHEST RADIOGRAPH Indication: sob Technique: Single frontal view of the chest was obtained Comparison: XY CHEST PORTABLE on DOS: 03/31/23, CHEST PORTABLE on DOS: 06/05/22, CXRP on DOS: 06/05/22 Findings/ IMPRESSION: Prominent opacification in the left lower perihilar region which was not present on prior study and may be due to chronic interstitial process or pulmonary vascular congestion but superimposed infection can not be excluded. Assessment/Plan Assessment/Plan Acute respiratory failure with hypoxia Pulmonary embolus Generalized weakness Chest pain Elevated D-dimer Leukocytosis, unspecified Pneumonia, unspecified organism Plan 1. Admit to telemetry unit 2. Breathing treatment 3. Pain control management 4. IV antibiotic management 5. Management of fluids and electrolytes 6. Consultation for pulmonology 7. Diagnostic test CT Angiography 8. DVT prophylaxis-on Lovenox 9. Repeat labs CBC, CMP in a.m. 10. Home medication reviewed and reconciled 11. Continue with current medical management 12. Treatment plan discussed with patient and RN. Patient verbalized understanding. Plan discussed with: Patient, Other (RN) My Orders Orders - OPHELIA MOCK DNP Procedure Category Date Status Time Ceftriaxone 1gm/50ml PHA 05/01/24 In Process D5w (Rocephin) 09:00 Levothyroxine Tablet PHA 05/01/24 In Process (Synthroid Tablet) 06:00 Methylprednisolone PHA 04/30/24 Logged Sod Succ (Solu Medrol 22:00 Famotidine Injection PHA 04/30/24 In Process (Pepcid Injection) 22:00 *Consult CONS 04/30/24 Transmitted / 20:17 Allergies TOM 04/30/24 In Process 20:17 Code Status CODE 04/30/24 Transmitted 20:17 Sodium Chloride Lock PHA 04/30/24 In Process (Saline Lock Ns) 22:00 Oxygen Per Hour RT 04/30/24 Transmitted 20:17 Hydrocodone-Acet PHA 04/30/24 In Process 5/325mg Tab (Baxter 20:30 Ondansetron Hcl PHA 04/30/24 In Process (Zofran) 20:30 Docusate Sodium PHA 04/30/24 In Process Capsule (Colace 20:30 Complete Blood Count LAB 05/01/24 Verified 04:00 Comprehensive LAB 05/01/24 Verified Metabolic Panel 04:00 Cardiac DIET 05/01/24 Transmitted Diet-2gna,Lofat,Lochol Breakfast Condition: Serious TOM 04/30/24 In Process 20:17 Acetaminophen Tablet PHA 04/30/24 In Process (Tylenol Tablet) 20:30 Bedrest With Bathroom TOM 04/30/24 In Process Privileg 20:17 Sequential TOM 04/30/24 In Process Compression Device Enoxaparin Sodium PHA 04/30/24 Logged (Lovenox) 22:00 Azithromycin 500mg/ PHA 05/01/24 Logged 250ml (Zithromax 50 10:00 Azithromycin 500mg/ PHA 04/30/24 Logged 250ml (Zithromax 50 20:45 Admit ADMIT 04/30/24 Transmitted 20:58 Nitroglycerin [facility] 04/30/24 Logged Sublingual (Ntrostat 21:00 Morphine Sulfate PHA 04/30/24 Transmitted Injection 21:00 Notify Of Changes [facility] 04/30/24 Transmitted From Base 20:58 Attorney For [facility] 04/30/24 Transmitted 24 Hours 20:58 Emergency Dysrhythmia [facility] 04/30/24 Transmitted Protocol 20:58 Rhythm Strips Once [facility] 04/30/24 Transmitted Every Shift 20:58 Oxygen By Nasal RT 04/30/24 Transmitted Cannula 20:58 Problem List: (1) Acute respiratory failure with hypoxia (2) Pulmonary embolus (3) Chest pain (4) Leukocytosis, unspecified (5) Elevated d-dimer (6) Generalized weakness (7) Pneumonia, unspecified organism Date of Service: Apr 30, 2024 Billing Provider: OPHELIA MOCK DNP Common Visit Codes: [id number] INP/OBS CARE (HIGH) OPHELIA MOCK DNP Apr 30, 2024 21:35
[2024-04-30] MEDS: SODIUM CHLOR 0.9% PF (SALINE LOCK) 10ML VIAL/SYR IV SCH (22:07)
[2024-04-30] MEDS: cefTRIAXone 1GM/50ML D5W 50 ML IV ONE (22:07)
[2024-04-30] MEDS: ENOXAPARIN SOD 100 MG/1 ML SYRINGE SC STA (22:07)
[2024-04-30] MEDS: methylPREDNISolone SOD SUCC 125 MG/2 ML VL IV ONE (22:07)
[2024-04-30] MEDS: FAMOTIDINE (10MG/ML) 2ML VL IV SCH (22:21)
[2024-05-01] VITALS (8 sets, daily range): BP systolic 119–139; BP diastolic 65–77; PULSE 73–90; RESP 18–20; TEMP 97.5–97.8; O2SAT 93–98
[2024-05-01] MEDS: AZITHROMYCIN 500MG/ 250ML 250 ML IV ONE (01:49)
[2024-05-01] MEDS: MELATONIN 5 MG TAB PO ONE (03:18)
[2024-05-01] MEDS: HYDROcodone-ACET 5/325MG TAB PO PRN (04:14)
[2024-05-01] MEDS: LEVOTHYROXINE SODIUM 25 MCG TAB PO SCH (05:15)
[2024-05-01] MEDS: DOCUSATE SOD 100 MG CAP PO PRN (05:15)
[2024-05-01] MEDS: cefTRIAXone 1GM/50ML D5W 50 ML IV SCH (08:30)
[2024-05-01] MEDS: methylPREDNISolone SOD SUCC 40 MG/ML VL IV SCH (08:30)
[2024-05-01] MEDS: ENOXAPARIN SOD 80 MG/0.8ML SYRINGE SC SCH (08:31)
[2024-05-01] MEDS: ONDANSETRON HCL 4 MG/2 ML VIAL IV PRN (10:00)
[2024-05-01] MEDS ORDERED: PNEUMOCOCCAL VACC POLYS 25 MCG/0.5 ML VIAL IM ONE (10:00)
[2024-05-01] MEDS ORDERED: ENOXAPARIN SOD 40 MG/0.4 ML SYRINGE SC SCH (10:00)
[2024-05-01 10:13] LABS: Alanine Aminotransferase 34 U/L (7-40); Alkaline Phosphatase 90 U/L (46-116); Anion Gap 8 (5-15); Aspartate Aminotransferase 16 U/L (13-40); BUN/Creatinine Ratio 27.4 (10.0-20.0); Blood Urea Nitrogen 20 mg/dL (9-23); Calcium 8.8 mg/dL (8.7-10.4); Carbon Dioxide 24 mmol/L (20-31); Potassium 4.1 mmol/L (3.5-5.1); Sodium 141 mmol/L (136-145)
[2024-05-01 10:14] LABS: Bilirubin, Total 0.5 mg/dL (0.2-1.0); Hematocrit 38.7 % (36.0-46.0); Hemoglobin 12.9 g/dL (12.2-16.2); Mean Corpuscular Hemoglobin 29.5 pg (28.0-32.0); Mean Corpuscular Hgb Conc. 33.3 g/dL (32.0-36.0); Mean Corpuscular Volume 88.6 fL (80.0-100.0); Platelet Count (auto) 300 10^3/uL (140-450); Red Blood Cells 4.37 10^6/uL (4.0-5.20); Red Cell Distribution Width 14.2 % (11.8-14.3); White Blood Cell 14.8 10^3/uL (4.4-10.8)
[2024-05-01 10:19] LABS: Basophils % (manual) 0 (0.0-2.0); Blast Cells 0; Eosinophils % (manual) 0 (0-7); Metamyelocytes % 0; Myelocytes % 0; Promyelocytes % 0; Reactive Lymphocytes 0
[2024-05-01 10:21] LABS: Albumin 3.1 g/dL (3.2-4.8); Chloride 109 mmol/L (98-107); Glucose 188 mg/dL (74-106); Total Protein 5.7 g/dL (5.7-8.2)
[2024-05-01 11:29] LABS: Band Neutrophils % (manual) 1; Lymphocytes % (manual) 19 (10.0-50.0); Monocytes % (manual) 2 (0-12)
[2024-05-01 11:31] LABS: Platelet Estimate Adequate
--- NOTE | 2024-05-01 17:59 | DVHPN2 ---
Subjective c/o ruq pain/nausea Changes from previous H/P or p: No Changes Eyes: No Pain, No Vision change, No Conjunctivae inflammation, No Eyelid inflammation, No Other, No Redness ENT: No Ear pain, No Ear discharge, No Nose pain, No Nose discharge, No Nose congestion, No Mouth pain, No Mouth swelling, No Throat pain, No Throat swelling, No Other Cardiovascular: Chest Pain; No Palpitations, No Orthopnea, No Paroxysmal Noc. Dyspnea, No Edema, No Lt Headedness, No Other Respiratory: No Cough, No Dry; Shortness of breath, SOB with excertion; No Wheezing, No Hemoptysis, No Pleuritic Pain, No Sputum; Other (SOB at rest) Gastrointestinal: No Nausea, No Vomiting, No Abdominal Pain, No Diarrhea, No Constipation, No Melena, No Hematochezia, No Other Genitourinary: No Dysuria, No Frequency, No Incontinence, No Hematuria, No Retention, No Other Musculoskeletal: No other, No neck pain, No shoulder pain, No arm pain, No back pain, No hand pain, No leg pain, No foot pain Skin: No Rash, No Lesions, No Jaundice, No Bruising, No Other Objective Vitals Vital Signs Date Time Temp Pulse Resp B/P (MAP) Pulse Ox O2 Delivery O2 Flow Rate FiO2 05/01/24 17:00 97.8 73 18 119/65 (83) 97 97.8 05/01/24 07:30 Nasal Cannula* 4 36 Intake/Output Intake and Output 05/01/24 07:00 Output Total 400 ml Balance -400 ml Output Urine Total 400 ml General Appearance: Alert, Oriented X3, Cooperative, No acute distress Lungs: Clear to auscultation Cardiovascular: Regular rate, Normal S1, Normal S2 Abdomen: Normal bowel sounds, Soft, No tenderness, No hepatospenomegaly Neuro: Normal gait, Normal speech, Strength at 5/5 X4 ext, Normal tone, S ensation intact, Cranial nerves 3-12 NL Psych/Mental Status: Mental status NL, Mood NL Medications Current Medications Medications Dose Ordered Sig/Mindy Route Start Time Stop Time Status Last Admin Dose Admin Ceftriaxone Sodium 50 ml @ 100 mls/hr DAILY@09 IV 05/01/24 09:00 05/01/24 08:30 100 MLS/HR Levothyroxine Sodium 25 mcg QAM@0600 PO 05/01/24 06:00 05/01/24 05:15 25 MCG Methylprednisolone Sodium Succinate 40 mg BID IV 05/01/24 10:00 05/01/24 08:30 40 MG Sodium Chloride 10 ml Q8HR IV 04/30/24 22:00 05/01/24 14:00 10 ML Acetaminophen/ Hydrocodone Bitart 1 tab Q4HP PRN PO 04/30/24 20:30 05/01/24 08:32 1 TAB Ondansetron HCl 4 mg Q4HP PRN IV 04/30/24 20:30 05/01/24 15:24 4 MG Docusate Sodium 100 mg BIDPRN PRN PO 04/30/24 20:30 05/01/24 08:31 100 MG Acetaminophen 650 mg Q6HP PRN PO 04/30/24 20:30 Enoxaparin Sodium 70 mg Q12HR SC 05/01/24 10:00 05/01/24 08:31 70 MG Azithromycin 250 ml @ 125 mls/hr DAILY@2200 IV 05/01/24 22:00 Nitroglycerin 0.4 mg Q5MINP PRN SL 04/30/24 21:00 Morphine Sulfate 2 mg Q30M PRN IV 04/30/24 21:00 Melatonin 5 mg HS PO 05/01/24 22:00 Pantoprazole Sodium 40 mg DAILY@0600 PO 05/02/24 06:00 Risperidone 1 mg DAILY PO 05/02/24 10:00 Risperidone 2 mg HS PO 05/01/24 22:00 Trazodone HCl 100 mg HS PO 05/01/24 22:00 Laboratory Results Laboratory Tests 05/01/24 09:26 Chemistry Test 04/30/24 18:00 05/01/24 09:26 Albumin 3.2 g/dL (3.2-4.8) 3.1 g/dL (3.2-4.8) L Calcium Level 9.3 mg/dL (8.7-10.4) 8.8 mg/dL (8.7-10.4) Total Protein 5.8 g/dL (5.7-8.2) 5.7 g/dL (5.7-8.2) Coagulation Test 04/30/24 18:00 Prothrombin Time 11.4 sec (9.3-11.8) Prothrombin Time INR 1.08 (0.9-1.15) Activated Partial Thromboplast Time 22.5 SEC (24.5-34.5) L D-Dimer, Quantitative 4.89 mg/L FEU (0.0-0.49) H Cardiac Markers Test 04/30/24 18:00 B-Type Natriuretic Peptide 56.81 pg/mL (0-100) LFT Test 04/30/24 18:00 05/01/24 09:26 Alanine Aminotransferase (ALT) 43 U/L (7-40) H 34 U/L (7-40) Alkaline Phosphatase 102 U/L (46-116) 90 U/L (46-116) Aspartate Amino Transferase (AST) 24 U/L (13-40) 16 U/L (13-40) Total Bilirubin 0.7 mg/dL (0.2-1.0) 0.5 mg/dL (0.2-1.0) Blood Gas Results Test 04/30/24 18:32 Arterial Blood pH 7.548 (7.350-7.450) FiO2 % 21.0 Microbiology Microbiology Date/Time Source Procedure Growth Status 05/01/24 05:08 Nose MRSA Screen - Final Complete Labs and/or images reviewed: Labs reviewed by me, Image(s) reviewed by me Assessment/Plan Assessment/Plan acute respiratory failure left segmental embolism- on anticoagulation community acquired pmneumonia abdominal pain- add ppi/evlauate depression with psychosis- resume home meds suprapubic catheter status Plan discussed with: Patient, Other My Orders Orders - LÓPEZ MARSHALL MD Procedure Category Date Status Time Pantoprazole Tablet PHA 05/02/24 In Process (Protonix Tablet) 06:00 Risperidone Tablet PHA 05/02/24 In Process (Risperdal Tablet) 10:00 Risperidone Tablet PHA 05/01/24 In Process (Risperdal Tablet) 22:00 Abdomen Limited US 05/01/24 Logged 16:10 Trazodone Hcl PHA 05/01/24 In Process (Desyrel) 22:00 Date of Service: May 01, 2024 Billing Provider: LÓPEZ MARSHALL MD Common Visit Codes: [id number] INP/OBS CARE(HIGH) LÓPEZ MARSHALL MD May 01, 2024 17:58
--- NOTE | 2024-05-01 19:51 | DVH ---
INDICATION: right upper quadrant pain TECHNIQUE: Multiple real-time sonographic images of the abdomen were obtained. COMPARISON: None FINDINGS: Hepatic parenchyma shows increased echogenicity suggesting steatosis.. The liver measures 14.09 cm. No intrahepatic biliary ductal dilatation is noted. The gallbladder wall measures 0.16 cm and is unremarkable. No gallstones or sludge is seen. The co mmon duct measures 0.47 cm and is unremarkable. No pericholecystic fluid is noted. The right kidney measures 0.31 cm. No hydronephrosis. The pancreas pancreas appears normal. IMPRESSION: 1. Liver measures 4.09 cm with findings suggesting steatosis in the hepatic parenchyma 2. Gallbladder appears normal negative ultrasound sims's sign is elicited. 3. Right kidney is unremarkable. HS:Y
[2024-05-01] MEDS: METOCLOPRAMIDE HCL 5MG/ml INJ 2ml VIAL IV ONE (20:56)
[2024-05-01] MEDS: MELATONIN 5 MG TAB PO SCH (21:29)
[2024-05-01] MEDS: traZODone HCL 50 MG TAB PO SCH (21:29)
[2024-05-01] MEDS: risperiDONE 1 MG TAB PO SCH (21:30)
[2024-05-01] MEDS: AZITHROMYCIN 500MG/ 250ML 250 ML IV SCH (21:37)
--- NOTE | 2024-05-01 23:50 | DVHINCON2 ---
Date of service: May 01, 2024 Referring Physician [facility] Callahan Reason for Consultation Pulmonary embolism, Acute hypoxic respiratory failure History of Present Illness 63-year-old woman history of COPD, thyroid disease who presented with a chief complaint of shortness breath and hypoxia. She was requiring supplemental oxygen. She had a CTA performed that demonstrated multifocal ground-glass opacities with consolidation in the lower lobes and small subsegmental pulmonary emboli in the right lower lobe. She was currently on therapeutic Lovenox for anticoagulation. She was on supplemental oxygen due to hypoxia. She was being treated empirically with antibiotics for pneumonia. She denies any fever or chills. No recent sick contacts. No recent travel history. Pulmonary consultation is called due to acute hypoxic respiratory failure and acute pulmonary embolism. Review of systems: 14 point review of systems is negative unless otherwise noted above. Past medical history: COPD, hypothyroidism Past surgical history: Suprapubic catheter Medications: Reviewed Allergies: No known drug allergies. Family history: No family history of premature CAD. No family history of lung disease Social history: Nonsmoker. No alcohol or illicit drug use. Family History: Diabetes mellitus G8 MOTHER FH: breast cancer G8 SISTER, Onset:Unknown FH: cancer G8 MOTHER FH: hepatic cirrhosis G8 MOTHER, Onset:Unknown G8 SISTER, Onset:Unknown Allergies: Coded Allergies: NO KNOWN ALLERGIES (Unverified , 05/02/24) Home Meds Active Scripts Levofloxacin Hemihydrate (LEVOFLOXACIN) 750 Mg Tab, 750 MG PO DAILY for 10 Days, #10 TAB Prov:RIZWAN PRIETOANNA RESIDENT 04/19/24 Reported Medications Risperidone (Risperdal) 2 Mg Tab, 2 MG PO QPM, TAB 04/16/24 Hydrocodone-Acetaminophen (Hydrocodone Bitartrate/AC 10-325 mg) 1 Tab Tab, 1 TAB PO TIDP PRN for severe pain, TAB 05/03/23 Risperidone (Risperidone) 1 Mg Tab, 1 MG PO QAM, TAB 05/03/23 Cyclobenzaprine HCl (Cyclobenzaprine Hydrochlo) 10 Mg Tab, 1 TAB PO BID 06/07/22 Trazodone Hcl (Trazodone Hcl) 100 Mg Tab, 1 TAB PO HS 06/07/22 Levothyroxine Sodium (Levothyroxine Sodium) 25 Mcg Tab, 25 MCG PO QAM, MCG 07/18/20 Current Medications Current Medications Medications (Trade) Dose Ordered Sig/Mindy Route PRN Reason Start Time Stop Time Status Last Admin Ceftriaxone Sodium 50 ml @ 100 mls/hr DAILY@09 IV 05/01/24 09:00 05/01/24 08:30 Levothyroxine Sodium (Synthroid Tablet) 25 mcg QAM@0600 PO 05/01/24 06:00 05/01/24 05:15 Methylprednisolone Sodium Succinate (Solu Medrol) 40 mg BID IV 05/01/24 10:00 05/01/24 21:33 Enoxaparin Sodium (Lovenox) 40 mg DAILY SC 05/01/24 10:00 04/30/24 20:42 DC Enoxaparin Sodium (Lovenox) 70 mg Q12HR SC 05/01/24 10:00 05/01/24 21:34 Azithromycin 250 ml @ 125 mls/hr DAILY@2200 IV 05/01/24 22:00 05/01/24 21:37 Melatonin (Melatonin) 5 mg HS PO 05/01/24 22:00 05/01/24 21:29 Pantoprazole Sodium (Protonix Tablet) 40 mg DAILY@0600 PO 05/02/24 06:00 Risperidone (RisperDAL TABLET) 1 mg DAILY PO 05/02/24 10:00 Risperidone (RisperDAL TABLET) 2 mg HS PO 05/01/24 22:00 05/01/24 21:30 Trazodone HCl (Desyrel) 100 mg HS PO 05/01/24 22:00 05/01/24 21:29 Vital Signs Vital Signs Date Time Temp Pulse Resp B/P (MAP) Pulse Ox O2 Delivery O2 Flow Rate FiO2 05/01/24 21:00 97.8 78 19 121/71 (88) 98 97.8 05/01/24 07:30 Nasal Cannula* 4 36 Physical Exam Gen.: Patient lying in bed in no apparent distress. On supplemental oxygen. Head: Normocephalic, atraumatic Eyes: EOMI/PERRLA. Ears: Normal hearing. Normal anatomy. Neck/trachea: Trachea midline, supple. Nose: Normal external anatomy. Mouth: Moist mucous membranes. Chest: Fair air entry bilaterally. No wheezing or rhonchi. Cardio vascular: Positive S1, positive S2. Regular rate and rhythm. Abdomen: Positive bowel sounds in all 4 quadrants. Soft, non-tender, non- distended. : Deferred. Suprapubic catheter in place. Rectal: Deferred Skin: Warm, dry. Extremities: 2+ radial pulses bilaterally. No lower extremity edema. Neuro: Awake, alert, oriented x3. No gross motor or sensory deficits. Cranial nerves II through XII intact. Gait not assessed. Labs/Diagnostic Data Labs Test 05/01/24 09:26 04/30/24 21:59 04/30/24 19:55 04/30/24 18:32 Range/Units White Blood Count 14.8 #H 4.4-10.8 10^3/uL Red Blood Count 4.37 4.0-5.20 10^6/uL Hemoglobin 12.9 12.2-16.2 g/dL Hematocrit 38.7 # 36.0-46.0 % Mean Corpuscular Volume 88.6 80.0-100.0 fL Mean Corpuscular Hemoglobin 29.5 28.0-32.0 pg Mean Corpuscular Hemoglobin Concent 33.3 32.0-36.0 g/dL Red Cell Distribution Width 14.2 11.8-14.3 % Platelet Count 300 140-450 10^3/uL Mean Platelet Volume 7.4 6.9-10.8 fL Neutrophils (%) (Auto) 37.0-80.0 % Lymphocytes (%) (Auto) 10.0-50.0 % Monocytes (%) (Auto) 0.0-12.0 % Basophils (%) (Auto) 0.0-2.0 % Neutrophils # (Auto) 1.6-8.6 10 ^3/uL Lymphocytes # (Auto) 0.4-5.4 10 ^3/uL Monocytes # (Auto) 0-1.3 10 ^3/uL Differential Total Cells Counted 100.0 100 Neutrophils % (Manual) 78 37.0-80.0 Band Neutrophils % (Manual) 1 Lymphocytes % (Manual) 19 10.0-50.0 Monocytes % (Manual) 2 0-12 Eosinophils % (Manual) 0 0-7 Basophils % (Manual) 0 0.0-2.0 Metamyelocytes % (manual) 0 Myelocytes % (Manual) 0 Promyelocytes % (Manual) 0 Blast Cells % (Manual) 0 Reactive Lymphocytes 0 Platelet Estimate Adequate Sodium Level 141 136-145 mmol/L Potassium Level 4.1 3.5-5.1 mmol/L Chloride Level 109 H 98-107 mmol/L Carbon Dioxide Level 24 20-31 mmol/L Anion Gap 8 5-15 Blood Urea Nitrogen 20 9-23 mg/dL Creatinine 0.73 0.550-1.02 mg/dL Glomerular Filtration Rate Calc 92 >90 mL/min BUN/Creatinine Ratio 27.4 H 10.0-20.0 Serum Glucose 188 H 74-106 mg/dL Calcium Level 8.8 8.7-10.4 mg/dL Total Bilirubin 0.5 0.2-1.0 mg/dL Aspartate Amino Transferase (AST) 16 13-40 U/L Alanine Aminotransferase (ALT) 34 7-40 U/L Alkaline Phosphatase 90 46-116 U/L Total Protein 5.7 5.7-8.2 g/dL Albumin 3.1 L 3.2-4.8 g/dL Troponin I High Sensitivity 4 </=34 ng/L Lactic Acid Level 1.6 0.4-2.0 mmol/L Blood Gas Specimen Type Arterial Blood Gas Sample Site Right radial Blood Gas Patient Temperature 37.0 Arterial Blood Date Drawn [id number] Arterial Blood pH 7.548 H 7.350-7.450 Arterial Blood Partial Pressure CO2 27.6 L 32.0-45.0 mmHg Arterial Blood Partial Pressure O2 57.3 L 83.0-108.0 mmHg Arterial Blood HCO3 23.5 21.0-28.0 mmol/L Arterial Blood Oxygen Saturation 91.3 L 94.0-98.0 % Arterial Blood Base Excess 2.4 -2.0-3.0 mmol/L Arterial Blood Oxyhemoglobin 90.3 L 94.0-98.0 % Arterial Blood Carboxyhemoglobin 0.8 0.5-1.5 % Arterial Blood Methemoglobin 0.3 0.0-1.5 % Jer Test Yes Blood Gas Total Hemoglobin 15.50 12.0-16.0 g/dL Blood Gas Modality Room air FiO2 % 21.0 Test 04/30/24 18:00 04/30/24 00:00 Range/Units Prothrombin Time 11.4 9.3-11.8 sec Prothrombin Time INR 1.08 0.9-1.15 Activated Partial Thromboplast Time 22.5 L 24.5-34.5 SEC D-Dimer, Quantitative 4.89 H 0.0-0.49 mg/L FEU B-Type Natriuretic Peptide 56.81 0-100 pg/mL Influenza Type A Antigen Negative Negative Influenza Type B Antigen Negative Negative SARS-CoV-2 Antigen (Rapid) Negative NEGATIVE Microbiology Date/Time Source Procedure Growth Status 05/01/24 05:08 Nose MRSA Screen - Final Complete 04/30/24 19:55 Blood Blood Culture - Preliminary NO GROWTH AFTER 24 HOURS OF INCUBATION. Resulted Assessment Impression: Acute hypoxic respiratory failure Acute pulmonary emboli Generalized weakness Elevated D-dimer Pneumonia likely Gram-negative Ground-glass opacities on imaging Mediastinal lymphadenopathy, reactive Obesity, BMI 33.5 Plan: CT of the chest report and images reviewed. Small subsegmental pulmonary emboli in the right lower lobe. Multifocal ground-glass opacity with constellation b ilateral lower lobes. Reactive mediastinal lymphadenopathy. Supplemental oxygen On 4 liters/minute via nasal cannula keep O2 saturation above 92%. Continue antibiotics Flow cultures Continue bronchodilators Continue therapeutic Lovenox Diet and lifestyle modifications for weight reduction given obesity DVT prophylaxis-on Lovenox Prognosis: Poor given multiple comorbidities. Rest of plan per hospitalist and other consultants. Thank you [facility] Callahan for allowing me to participate in this patient's care. Further recommendations will depend on patient's clinical course. Please do not hesitate to contact me if you have any questions or concerns. This medical document was created using an electronic medical record system with [employer] dictation system. Although this document has been carefully reviewed, there may still be some phonetic and typographical errors. These areas are purely typographical due to imperfections of the software programs, and do not reflect any compromise in the patient's medical care. Plan discussed with: Patient, Other (RN, [employer]) MICHELLE TRENT MD May 01, 2024 23:50
[2024-05-02] VITALS (8 sets, daily range): BP systolic 106–131; BP diastolic 57–72; PULSE 57–87; RESP 16–18; TEMP 97.4–98.6; O2SAT 97–100
[2024-05-02] MEDS: PANTOPRAZOLE 40 MG TAB PO SCH (05:17)
[2024-05-02] MEDS: risperiDONE 1 MG TAB PO SCH (09:57)
--- NOTE | 2024-05-02 12:27 | DVH ---
Date: 05/02/2024 12:01 PM Examination: XY KUB ABDOMEN SINGLE VIEW History: ABDOMINAL PAIN Comparison: None TECHNIQUE: Frontal views of the abdomen was obtained. FINDINGS: Bowel gas pattern is unremarkable. The lung bases are unremarkable. No acute osseous abnormality identified. IMPRESSION: Nonobstructive bowel gas pattern.
[2024-05-02] MEDS: LACTULOSE 20Gm/30ML SOLN PO ONE (13:23)
--- NOTE | 2024-05-02 15:45 | DVHPN2 ---
Subjective c/o pain/ around spc cath area//nausea Changes from previous H/P or p: No Changes Eyes: No Pain, No Vision change, No Conjunctivae inflammation, No Eyelid inflammation, No Other, No Redness ENT: No Ear pain, No Ear discharge, No Nose pain, No Nose discharge, No Nose congestion, No Mouth pain, No Mouth swelling, No Throat pain, No Throat swelling, No Other Cardiovascular: Chest Pain; No Palpitations, No Orthopnea, No Paroxysmal Noc. Dyspnea, No Edema, No Lt Headedness, No Other Respiratory: No Cough, No Dry; Shortness of breath, SOB with excertion; No Wheezing, No Hemoptysis, No Pleuritic Pain, No Sputum; Other (SOB at rest) Gastrointestinal: No Nausea, No Vomiting, No Abdominal Pain, No Diarrhea, No Constipation, No Melena, No Hematochezia, No Other Genitourinary: No Dysuria, No Frequency, No Incontinence, No Hematuria, No Retention, No Other Musculoskeletal: No other, No neck pain, No shoulder pain, No arm pain, No back pain, No hand pain, No leg pain, No foot pain Skin: No Rash, No Lesions, No Jaundice, No Bruising, No Other Objective Vitals Vital Signs Date Time Temp Pulse Resp B/P (MAP) Pulse Ox O2 Delivery O2 Flow Rate FiO2 05/02/24 13:00 97.5 69 16 131/68 (89) 98 97.5 05/02/24 07:30 Nasal Cannula* 4 36 Intake/Output Intake and Output 05/02/24 07:00 Intake Total 1790 ml Output Total 1500 ml Balance 290 ml Intake Oral 1490 ml IV Total 300 ml Output Urine Total 1500 ml General Appearance: Alert, Oriented X3, Cooperative, No acute distress Lungs: Clear to auscultation Cardiovascular: Regular rate, Normal S1, Normal S2 Abdomen: Normal bowel sounds, Soft, No tenderness, No hepatospenomegaly Neuro: Normal gait, Normal speech, Strength at 5/5 X4 ext, Normal tone, S ensation intact, Cranial nerves 3-12 NL Psych/Mental Status: Mental status NL, Mood NL Medications Current Medications Medications Dose Ordered Sig/Mindy Route Start Time Stop Time Status Last Admin Dose Admin Ceftriaxone Sodium 50 ml @ 100 mls/hr DAILY@09 IV 05/01/24 09:00 05/02/24 09:59 100 MLS/HR Levothyroxine Sodium 25 mcg QAM@0600 PO 05/01/24 06:00 05/02/24 05:17 25 MCG Methylprednisolone Sodium Succinate 40 mg BID IV 05/01/24 10:00 05/02/24 09:58 40 MG Sodium Chloride 10 ml Q8HR IV 04/30/24 22:00 05/02/24 13:23 10 ML Acetaminophen/ Hydrocodone Bitart 1 tab Q4HP PRN PO 04/30/24 20:30 05/02/24 09:57 1 TAB Ondansetron HCl 4 mg Q4HP PRN IV 04/30/24 20:30 05/02/24 13:32 4 MG Docusate Sodium 100 mg BIDPRN PRN PO 04/30/24 20:30 05/02/24 09:57 100 MG Acetaminophen 650 mg Q6HP PRN PO 04/30/24 20:30 Enoxaparin Sodium 70 mg Q12HR SC 05/01/24 10:00 05/02/24 09:59 70 MG Azithromycin 250 ml @ 125 mls/hr DAILY@2200 IV 05/01/24 22:00 05/01/24 21:37 125 MLS/HR Nitroglycerin 0.4 mg Q5MINP PRN SL 04/30/24 21:00 Melatonin 5 mg HS PO 05/01/24 22:00 05/01/24 21:29 5 MG Pantoprazole Sodium 40 mg DAILY@0600 PO 05/02/24 06:00 05/02/24 05:17 40 MG Risperidone 1 mg DAILY PO 05/02/24 10:00 05/02/24 09:57 1 MG Risperidone 2 mg HS PO 05/01/24 22:00 05/01/24 21:30 2 MG Trazodone HCl 100 mg HS PO 05/01/24 22:00 05/01/24 21:29 100 MG Laboratory Results Laboratory Tests 05/01/24 09:26 Microbiology Microbiology Date/Time Source Procedure Growth Status 05/01/24 05:08 Nose MRSA Screen - Final Complete 04/30/24 19:55 Blood Blood Culture - Preliminary NO GROWTH AFTER 24 HOURS OF INCUBATION. Resulted Labs and/or images reviewed: Labs reviewed by me, Image(s) reviewed by me Assessment/Plan Assessment/Plan acute respiratory failure left segmental embolism- on anticoagulation community acquired pmneumonia abdominal pain- add ppi/evlauate//us abdomen report reviwed depression with psychosis- resume home meds suprapubic catheter status- await culture report Plan discussed with: Patient, Other My Orders Orders - LÓPEZ MARSHALL MD Procedure Category Date Status Time Pantoprazole Tablet PHA 05/02/24 In Process (Protonix Tablet) 06:00 Risperidone Tablet PHA 05/02/24 In Process (Risperdal Tablet) 10:00 Risperidone Tablet PHA 05/01/24 In Process (Risperdal Tablet) 22:00 Abdomen Limited US 05/01/24 Resulted 16:10 Trazodone Hcl PHA 05/01/24 In Process (Desyrel) 22:00 Urine Bacterial JOSHUA 05/01/24 Logged Culture 17:59 Kub Abdomen Single XY 05/02/24 Resulted View 11:30 Complete Blood Count LAB 05/03/24 Verified 04:00 Potassium LAB 05/03/24 Verified 04:00 Date of Service: May 02, 2024 Billing Provider: LÓPEZ MARSHALL MD Common Visit Codes: [id number] INP/OBS CARE(MOD) LÓPEZ MARSHALL MD May 02, 2024 15:45
[2024-05-02] MEDS: ACETAMINOPHEN 325 MG TAB PO PRN (18:21)
--- NOTE | 2024-05-02 23:27 | DVHPN2 ---
Progress Note - Dictate Date Seen: May 02, 2024 Medical Necessity Reason Pt with a Central, PICC or Fol: Yes The following are medically ne: Celaya Catheter Reason for celaya catheter: Strict I&O Subjective Patient seen and examined at bedside. Remains on supplemental oxygen Overnight events reviewed. vital signs Vital Sign Date Time Temp Pulse Resp B/P (MAP) Pulse Ox O2 Delivery O2 Flow Rate FiO2 05/02/24 21:00 97.8 79 18 127/71 (89) 98 97.8 05/02/24 07:30 Nasal Cannula* 4 36 Total Intake and Output 05/01/24 05/01/24 05/02/24 15:00 23:00 07:00 Intake Total 50 ml 560 ml 1180 ml Output Total 575 ml 925 ml Balance 50 ml -15 ml 255 ml medications Current Medications Medications Dose Ordered Sig/Imndy Route Start Time Stop Time Status Last Admin Dose Admin Ceftriaxone Sodium 50 ml @ 100 mls/hr DAILY@09 IV 05/01/24 09:00 05/02/24 09:59 100 MLS/HR Levothyroxine Sodium 25 mcg QAM@0600 PO 05/01/24 06:00 05/02/24 05:17 25 MCG Methylprednisolone Sodium Succinate 40 mg BID IV 05/01/24 10:00 05/02/24 21:50 40 MG Sodium Chloride 10 ml Q8HR IV 04/30/24 22:00 05/02/24 21:49 10 ML Acetaminophen/ Hydrocodone Bitart 1 tab Q4HP PRN PO 04/30/24 20:30 05/02/24 09:57 1 TAB Ondansetron HCl 4 mg Q4HP PRN IV 04/30/24 20:30 05/02/24 13:32 4 MG Docusate Sodium 100 mg BIDPRN PRN PO 04/30/24 20:30 05/02/24 18:21 100 MG Acetaminophen 650 mg Q6HP PRN PO 04/30/24 20:30 05/02/24 18:21 650 MG Enoxaparin Sodium 70 mg Q12HR SC 05/01/24 10:00 05/02/24 21:52 70 MG Azithromycin 250 ml @ 125 mls/hr DAILY@2200 IV 05/01/24 22:00 05/02/24 21:50 125 MLS/HR Nitroglycerin 0.4 mg Q5MINP PRN SL 04/30/24 21:00 Melatonin 5 mg HS PO 05/01/24 22:00 05/02/24 21:51 5 MG Pantoprazole Sodium 40 mg DAILY@0600 PO 05/02/24 06:00 05/02/24 05:17 40 MG Risperidone 1 mg DAILY PO 05/02/24 10:00 05/02/24 09:57 1 MG Risperidone 2 mg HS PO 05/01/24 22:00 05/02/24 21:51 2 MG Trazodone HCl 100 mg HS PO 05/01/24 22:00 05/02/24 21:51 100 MG objective Gen.: Patient lying in bed in no apparent distress. On supplemental oxygen. Head: Normocephalic, atraumatic. Eyes: EOMI/PERRLA. Ears: Normal hearing. Normal anatomy. Neck/trachea: Trachea midline, supple. Nose: Normal external anatomy. Mouth: Moist mucous membranes. Chest: Decreased air entry bilaterally. No wheezing or rhonchi. Cardiovascular: Positive S1, positive S2. Regular rate and rhythm. Abdomen: Positive bowel sounds in all 4 quadrants. Soft, non-tender, non- distended. : Deferred. Rectal: Deferred. Skin: Warm, dry. Intact. Extremities: 2+ radial pulses bilaterally. No lower extremity edema. Neuro: Awake, alert, oriented x3. No gross motor or sensory deficits. Cranial nerves II through XII intact. Gait not assessed. laboratory and microbiology Laboratory Tests 05/01/24 09:26 Test 05/01/24 09:26 Range/Units Serum Glucose 188 H 74-106 mg/dL Assessment/Plan Impression: Acute hypoxic respiratory failure Acute pulmonary emboli Generalized weakness Elevated D-dimer Pneumonia likely Gram-negative Ground-glass opacities on imaging Mediastinal lymphadenopathy, reactive Obesity, BMI 33.5 Events: Remains on supplemental oxygen On 4 liters/minute via nasal cannula Taper O2 as tolerated. Continue antibiotics IV steroids Blood cultures show no growth after 48 hours Therapeutic Lovenox Labs and imaging reviewed Rest of plan as noted below Plan: CT of the chest report and images reviewed. Small subsegmental pulmonary emboli in the right lower lobe. Multifocal ground-glass opacity with constellation bilateral lower lobes. Reactive mediastinal lymphadenopathy. Supplemental oxygen keep O2 saturation above 92%. Continue antibiotics Follow up cultures Continue bronchodilators Continue therapeutic Lovenox Diet and lifestyle modifications for weight reduction given obesity DVT prophylaxis-on Lovenox Prognosis: Poor given multiple comorbidities. Rest of plan per hospitalist and other consultants. Thank you [facility] Call[facility] for allowing me to participate in this patient's care. Further recommendations will depend on patient's clinical course. Please do not hesitate to contact me if you have any questions or concerns. This medical document was created using an electronic medical record system with [employer] dictation system. Although this document has been carefully reviewed, there may still be some phonetic and typographical errors. These areas are purely typographical due to imperfections of the software programs, and do not reflect any compromise in the patient's medical care. Dietary Evaluation Review Comments: 1. Continue current diet 2. Consider prune juice if lactulose did not help or colace Expected Outcomes/Goals: 1. Pt will have more frequent BMs within 3-5 days Plan discussed with: Patient, Other (UZMA Pryor) MICHELLE TRENT MD May 02, 2024 23:27
[2024-05-03] VITALS (8 sets, daily range): BP systolic 103–155; BP diastolic 67–88; PULSE 71–90; RESP 16–19; TEMP 97.7–98.6; O2SAT 95–100
[2024-05-03 07:26] LABS: Hematocrit 37.3 % (36.0-46.0); Hemoglobin 12.3 g/dL (12.2-16.2); Mean Corpuscular Hemoglobin 29.2 pg (28.0-32.0); Mean Corpuscular Hgb Conc. 33.1 g/dL (32.0-36.0); Mean Corpuscular Volume 88.3 fL (80.0-100.0); Platelet Count (auto) 305 10^3/uL (140-450); Red Blood Cells 4.22 10^6/uL (4.0-5.20); Red Cell Distribution Width 14.3 % (11.8-14.3); White Blood Cell 12.4 10^3/uL (4.4-10.8)
[2024-05-03] MEDS: IOHEXOL 350 MG/ML 100ML IJ ONE (08:19)
[2024-05-03 08:56] LABS: Band Neutrophils % (manual) 2; Basophils % (manual) 0 (0.0-2.0); Blast Cells 0; Eosinophils % (manual) 0 (0-7); Lymphocytes % (manual) 9 (10.0-50.0); Metamyelocytes % 1; Monocytes % (manual) 3 (0-12); Myelocytes % 2; Platelet Estimate Adequate; Promyelocytes % 0; Reactive Lymphocytes 0
[2024-05-03 08:57] LABS: RBC Morphology Normal
--- NOTE | 2024-05-03 12:48 | DVHPN2 ---
Reviewed: Care Plan, H&P, Labs, Medications, Previous Orders, Radiology Changes from previous H/P or p: No Changes Eyes: No Pain, No Vision change, No Conjunctivae inflammation, No Eyelid inflammation, No Other, No Redness ENT: No Ear pain, No Ear discharge, No Nose pain, No Nose discharge, No Nose congestion, No Mouth pain, No Mouth swelling, No Throat pain, No Throat swelling, No Other Cardiovascular: Chest Pain; No Palpitations, No Orthopnea, No Paroxysmal Noc. Dyspnea, No Edema, No Lt Headedness, No Other Respiratory: No Cough, No Dry; Shortness of breath, SOB with excertion; No Wheezing, No Hemoptysis, No Pleuritic Pain, No Sputum; Other (SOB at rest) Gastrointestinal: No Nausea, No Vomiting, No Abdominal Pain, No Diarrhea, No Constipation, No Melena, No Hematochezia, No Other Genitourinary: No Dysuria, No Frequency, No Incontinence, No Hematuria, No Retention, No Other Musculoskeletal: No other, No neck pain, No shoulder pain, No arm pain, No back pain, No hand pain, No leg pain, No foot pain Skin: No Rash, No Lesions, No Jaundice, No Bruising, No Other Objective Vitals Vital Signs Date Time Temp Pulse Resp B/P (MAP) Pulse Ox O2 Delivery O2 Flow Rate FiO2 05/03/24 08:33 97.7 71 16 138/81 (100) 100 97.7 05/03/24 08:00 Nasal Cannula* 4 36 Intake/Output Intake and Output 05/03/24 07:00 Intake Total 1578 ml Output Total 2450 ml Balance -872 ml Intake Oral 1528 ml IV Total 50 ml Output Urine Total 2450 ml # Bowel Movements 1 General Appearance: Alert, Oriented X3, Cooperative, No acute distress Lungs: Clear to auscultation Cardiovascular: Regular rate, Normal S1, Normal S2 Abdomen: Normal bowel sounds, Soft, No tenderness, No hepatospenomegaly Neuro: Normal gait, Normal speech, Strength at 5/5 X4 ext, Normal tone, S ensation intact, Cranial nerves 3-12 NL Psych/Mental Status: Mental status NL, Mood NL Medications Current Medications Medications Dose Ordered Sig/Mindy Route Start Time Stop Time Status Last Admin Dose Admin Ceftriaxone Sodium 50 ml @ 100 mls/hr DAILY@09 IV 05/01/24 09:00 05/03/24 10:06 100 MLS/HR Levothyroxine Sodium 25 mcg QAM@0600 PO 05/01/24 06:00 05/03/24 06:08 25 MCG Methylprednisolone Sodium Succinate 40 mg BID IV 05/01/24 10:00 05/03/24 10:05 40 MG Sodium Chloride 10 ml Q8HR IV 04/30/24 22:00 05/03/24 06:07 10 ML Acetaminophen/ Hydrocodone Bitart 1 tab Q4HP PRN PO 04/30/24 20:30 05/02/24 09:57 1 TAB Ondansetron HCl 4 mg Q4HP PRN IV 04/30/24 20:30 05/02/24 13:32 4 MG Docusate Sodium 100 mg BIDPRN PRN PO 04/30/24 20:30 05/02/24 18:21 100 MG Acetaminophen 650 mg Q6HP PRN PO 04/30/24 20:30 05/02/24 18:21 650 MG Enoxaparin Sodium 70 mg Q12HR SC 05/01/24 10:00 05/03/24 10:05 70 MG Azithromycin 250 ml @ 125 mls/hr DAILY@2200 IV 05/01/24 22:00 05/02/24 21:50 125 MLS/HR Nitroglycerin 0.4 mg Q5MINP PRN SL 04/30/24 21:00 Melatonin 5 mg HS PO 05/01/24 22:00 05/02/24 21:51 5 MG Pantoprazole Sodium 40 mg DAILY@0600 PO 05/02/24 06:00 05/03/24 06:08 40 MG Risperidone 1 mg DAILY PO 05/02/24 10:00 05/03/24 10:06 1 MG Risperidone 2 mg HS PO 05/01/24 22:00 05/02/24 21:51 2 MG Trazodone HCl 100 mg HS PO 05/01/24 22:00 05/02/24 21:51 100 MG Laboratory Results Laboratory Tests 05/01/24 09:26 05/03/24 05:56 Microbiology Microbiology Date/Time Source Procedure Growth Status 05/01/24 05:08 Nose MRSA Screen - Final Complete 04/30/24 19:55 Blood Blood Culture - Preliminary NO GROWTH AFTER 48 HOURS OF INCUBATION. Resulted Labs and/or images reviewed: Labs reviewed by me, Image(s) reviewed by me Assessment/Plan Assessment/Plan Acute hypoxic respiratory failure Pulmonary embolism : Lovenox therapeutic dose, consult by Dr. 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
--- NOTE | 2024-05-03 23:01 | DVHPN2 ---
Progress Note - Dictate Date Seen: May 03, 2024 Medical Necessity Reason Pt with a Central, PICC or Fol: Yes The following are medically ne: Celaya Catheter Reason for celaya catheter: Strict I&O Subjective Patient seen and examined at bedside. Remains on supplemental oxygen Overnight events reviewed. vital signs Vital Sign Date Time Temp Pulse Resp B/P (MAP) Pulse Ox O2 Delivery O2 Flow Rate FiO2 05/03/24 21:00 98.6 90 16 103/70 (81) 97 98.6 05/03/24 20:00 Nasal Cannula* 5 40 Total Intake and Output 05/02/24 05/02/24 05/03/24 15:00 23:00 07:00 Intake Total 878 ml 700 ml Output Total 650 ml 1800 ml Balance 228 ml -1100 ml medications Current Medications Medications Dose Ordered Sig/Mindy Route Start Time Stop Time Status Last Admin Dose Admin Ceftriaxone Sodium 50 ml @ 100 mls/hr DAILY@09 IV 05/01/24 09:00 05/03/24 10:06 100 MLS/HR Levothyroxine Sodium 25 mcg QAM@0600 PO 05/01/24 06:00 05/03/24 06:08 25 MCG Methylprednisolone Sodium Succinate 40 mg BID IV 05/01/24 10:00 05/03/24 21:39 40 MG Sodium Chloride 10 ml Q8HR IV 04/30/24 22:00 05/03/24 21:40 10 ML Acetaminophen/ Hydrocodone Bitart 1 tab Q4HP PRN PO 04/30/24 20:30 05/03/24 21:40 1 TAB Ondansetron HCl 4 mg Q4HP PRN IV 04/30/24 20:30 05/02/24 13:32 4 MG Docusate Sodium 100 mg BIDPRN PRN PO 04/30/24 20:30 05/02/24 18:21 100 MG Acetaminophen 650 mg Q6HP PRN PO 04/30/24 20:30 05/02/24 18:21 650 MG Enoxaparin Sodium 70 mg Q12HR SC 05/01/24 10:00 05/03/24 21:39 70 MG Azithromycin 250 ml @ 125 mls/hr DAILY@2200 IV 05/01/24 22:00 05/03/24 21:40 125 MLS/HR Nitroglycerin 0.4 mg Q5MINP PRN SL 04/30/24 21:00 Melatonin 5 mg HS PO 05/01/24 22:00 05/03/24 21:39 5 MG Pantoprazole Sodium 40 mg DAILY@0600 PO 05/02/24 06:00 05/03/24 06:08 40 MG Risperidone 1 mg DAILY PO 05/02/24 10:00 05/03/24 10:06 1 MG Risperidone 2 mg HS PO 05/01/24 22:00 05/03/24 21:40 2 MG Trazodone HCl 100 mg HS PO 05/01/24 22:00 05/03/24 21:39 100 MG objective Gen.: Patient lying in bed in no apparent distress. On supplemental oxygen. Head: Normocephalic, atraumatic. Eyes: EOMI/PERRLA. Ears: Normal hearing. Normal anatomy. Neck/trachea: Trachea midline, supple. Nose: Normal external anatomy. Mouth: Moist mucous membranes. Chest: Decreased air entry bilaterally. No wheezing or rhonchi. Cardiovascular: Positive S1, positive S2. Regular rate and rhythm. Abdomen: Positive bowel sounds in all 4 quadrants. Soft, non-tender, non- distended. : Deferred. Rectal: Deferred. Skin: Warm, dry. Intact. Extremities: 2+ radial pulses bilaterally. No lower extremity edema. Neuro: Awake, alert, oriented x3. No gross motor or sensory deficits. Cranial nerves II through XII intact. Gait not assessed. laboratory and microbiology Laboratory Tests 05/03/24 05:56 05/01/24 09:26 Test 05/01/24 09:26 Range/Units Serum Glucose 188 H 74-106 mg/dL Assessment/Plan Impression: Acute hypoxic respiratory failure Acute pulmonary emboli Generalized weakness Elevated D-dimer Pneumonia likely Gram-negative Ground-glass opacities on imaging Mediastinal lymphadenopathy, reactive Obesity, BMI 33.5 Events: Remains on supplemental oxygen On 5 liters/minute via nasal cannula Taper O2 as tolerated. Continue antibiotics Continue bronchodilators IV steroids Incentive spirometry Blood cultures show no growth after 72 hours Therapeutic Lovenox Labs and imaging reviewed Rest of plan as noted below Plan: CT of the chest report and images reviewed. Small subsegmental pulmonary emboli in the right lower lobe. Multifocal ground-glass opacity with constellation bilateral lower lobes. Reactive mediastinal lymphadenopathy. Supplemental oxygen keep O2 saturation above 92%. Continue antibiotics Follow up cultures Continue bronchodilators Continue therapeutic Lovenox Diet and lifestyle modifications for weight reduction given obesity DVT prophylaxis-on Lovenox Prognosis: Poor given multiple comorbidities. Rest of plan per hospitalist and other consultants. Thank you [facility] for allowing me to participate in this patient's care. Further recommendations will depend on patient's clinical course. Please do not hesitate to contact me if you have any questions or concerns. This medical document was created using an electronic medical record system with [employer] dictation system. Although this document has been carefully reviewed, there may still be some phonetic and typographical errors. These areas are purely typographical due to imperfections of the software programs, and do not reflect any compromise in the patient's medical care. Dietary Evaluation Review Comments: 1. Continue current diet 2. Consider prune juice if lactulose did not help or colace Expected Outcomes/Goals: 1. Pt will have more frequent BMs within 3-5 days Plan discussed with: Patient, Other (UZMA Sawant) MICHELLE TRENT MD May 03, 2024 23:01
[2024-05-04] VITALS (9 sets, daily range): BP systolic 123–139; BP diastolic 49–77; PULSE 70–97; RESP 16–18; TEMP 97.7–98.5; O2SAT 94–100
--- NOTE | 2024-05-04 10:15 | DVHPN2 ---
Reviewed: Care Plan, H&P, Labs, Medications, Previous Orders, Radiology Changes from previous H/P or p: No Changes Eyes: No Pain, No Vision change, No Conjunctivae inflammation, No Eyelid inflammation, No Other, No Redness ENT: No Ear pain, No Ear discharge, No Nose pain, No Nose discharge, No Nose congestion, No Mouth pain, No Mouth swelling, No Throat pain, No Throat swelling, No Other Cardiovascular: Chest Pain; No Palpitations, No Orthopnea, No Paroxysmal Noc. Dyspnea, No Edema, No Lt Headedness, No Other Respiratory: No Cough, No Dry; Shortness of breath, SOB with excertion; No Wheezing, No Hemoptysis, No Pleuritic Pain, No Sputum; Other (SOB at rest) Gastrointestinal: No Nausea, No Vomiting, No Abdominal Pain, No Diarrhea, No Constipation, No Melena, No Hematochezia, No Other Genitourinary: No Dysuria, No Frequency, No Incontinence, No Hematuria, No Retention, No Other Musculoskeletal: No other, No neck pain, No shoulder pain, No arm pain, No back pain, No hand pain, No leg pain, No foot pain Skin: No Rash, No Lesions, No Jaundice, No Bruising, No Other Objective Vitals Vital Signs Date Time Temp Pulse Resp B/P (MAP) Pulse Ox O2 Delivery O2 Flow Rate FiO2 05/04/24 09:10 98.0 85 18 128/77 (94) 100 98.0 05/03/24 20:00 Nasal Cannula* 5 40 Intake/Output Intake and Output 05/04/24 07:00 Intake Total 2900 ml Output Total 4700 ml Balance -1800 ml Intake Oral 2300 ml IV Total 300 ml Other 300 ml Output Urine Total 4700 ml # Bowel Movements 2 General Appearance: Alert, Oriented X3, Cooperative, No acute distress Lungs: Clear to auscultation Cardiovascular: Regular rate, Normal S1, Normal S2 Abdomen: Normal bowel sounds, Soft, No tenderness, No hepatospenomegaly Neuro: Normal gait, Normal speech, Strength at 5/5 X4 ext, Normal tone, S ensation intact, Cranial nerves 3-12 NL Psych/Mental Status: Mental status NL, Mood NL Medications Current Medications Medications Dose Ordered Sig/Mindy Route Start Time Stop Time Status Last Admin Dose Admin Ceftriaxone Sodium 50 ml @ 100 mls/hr DAILY@09 IV 05/01/24 09:00 05/04/24 09:00 100 MLS/HR Levothyroxine Sodium 25 mcg QAM@0600 PO 05/01/24 06:00 05/04/24 05:42 25 MCG Methylprednisolone Sodium Succinate 40 mg BID IV 05/01/24 10:00 05/04/24 09:52 40 MG Sodium Chloride 10 ml Q8HR IV 04/30/24 22:00 05/04/24 06:04 10 ML Acetaminophen/ Hydrocodone Bitart 1 tab Q4HP PRN PO 04/30/24 20:30 05/04/24 05:42 1 TAB Ondansetron HCl 4 mg Q4HP PRN IV 04/30/24 20:30 05/02/24 13:32 4 MG Docusate Sodium 100 mg BIDPRN PRN PO 04/30/24 20:30 05/02/24 18:21 100 MG Acetaminophen 650 mg Q6HP PRN PO 04/30/24 20:30 05/02/24 18:21 650 MG Enoxaparin Sodium 70 mg Q12HR SC 05/01/24 10:00 05/04/24 09:52 70 MG Azithromycin 250 ml @ 125 mls/hr DAILY@2200 IV 05/01/24 22:00 05/03/24 21:40 125 MLS/HR Nitroglycerin 0.4 mg Q5MINP PRN SL 04/30/24 21:00 Melatonin 5 mg HS PO 05/01/24 22:00 05/03/24 21:39 5 MG Pantoprazole Sodium 40 mg DAILY@0600 PO 05/02/24 06:00 05/04/24 05:42 40 MG Risperidone 1 mg DAILY PO 05/02/24 10:00 05/04/24 09:52 1 MG Risperidone 2 mg HS PO 05/01/24 22:00 05/03/24 21:40 2 MG Trazodone HCl 100 mg HS PO 05/01/24 22:00 05/03/24 21:39 100 MG Laboratory Results Laboratory Tests 05/01/24 09:26 05/03/24 05:56 Microbiology Microbiology Date/Time Source Procedure Growth Status 05/01/24 05:08 Nose MRSA Screen - Final Complete 04/30/24 19:55 Blood Blood Culture - Preliminary NO GROWTH AFTER 72 HOURS OF INCUBATION. Resulted Labs and/or images reviewed: Labs reviewed by me, Image(s) reviewed by me Assessment/Plan Assessment/Plan Acute hypoxic respiratory failure oxygen by nasal cannula Acute Pulmonary embolism : Lovenox therapeutic dose, consult by Dr. Roy appreciated Community-acquired pneumonia: Rocephin Levaquin Acute abdominal pain: KUB x-ray negative Depression with psychosis: Resume home meds Time spent 45 minutes Condition guarded Plan discussed with: Patient Date of Service: May 04, 2024 Billing Provider: LEENA MANZANARES MD Common Visit Codes: [id number] INP/OBS CARE(HIGH) LEENA MANZANARES MD May 04, 2024 10:15
--- NOTE | 2024-05-04 23:43 | DVHPN2 ---
Progress Note - Dictate Date Seen: May 04, 2024 Medical Necessity Reason Pt with a Central, PICC or Fol: Yes The following are medically ne: Celaya Catheter Reason for celaya catheter: Strict I&O Subjective Patient seen and examined at bedside. Remains on supplemental oxygen Overnight events reviewed. vital signs Vital Sign Date Time Temp Pulse Resp B/P (MAP) Pulse Ox O2 Delivery O2 Flow Rate FiO2 05/04/24 21:00 98.4 92 17 127/49 (75) 97 98.4 05/04/24 20:00 Nasal Cannula* 3 32 Total Intake and Output 05/03/24 05/03/24 05/04/24 15:00 23:00 07:00 Intake Total 50 ml 1900 ml 950 ml Output Total 2300 ml 2400 ml Balance 50 ml -400 ml -1450 ml medications Current Medications Medications Dose Ordered Sig/Mindy Route Start Time Stop Time Status Last Admin Dose Admin Ceftriaxone Sodium 50 ml @ 100 mls/hr DAILY@09 IV 05/01/24 09:00 05/04/24 09:00 100 MLS/HR Levothyroxine Sodium 25 mcg QAM@0600 PO 05/01/24 06:00 05/04/24 05:42 25 MCG Methylprednisolone Sodium Succinate 40 mg BID IV 05/01/24 10:00 05/04/24 22:02 40 MG Sodium Chloride 10 ml Q8HR IV 04/30/24 22:00 05/04/24 22:02 10 ML Acetaminophen/ Hydrocodone Bitart 1 tab Q4HP PRN PO 04/30/24 20:30 05/04/24 22:04 1 TAB Ondansetron HCl 4 mg Q4HP PRN IV 04/30/24 20:30 05/02/24 13:32 4 MG Docusate Sodium 100 mg BIDPRN PRN PO 04/30/24 20:30 05/02/24 18:21 100 MG Acetaminophen 650 mg Q6HP PRN PO 04/30/24 20:30 05/02/24 18:21 650 MG Enoxaparin Sodium 70 mg Q12HR SC 05/01/24 10:00 05/04/24 22:03 70 MG Azithromycin 250 ml @ 125 mls/hr DAILY@2200 IV 05/01/24 22:00 05/04/24 22:04 125 MLS/HR Nitroglycerin 0.4 mg Q5MINP PRN SL 04/30/24 21:00 Melatonin 5 mg HS PO 05/01/24 22:00 05/04/24 22:03 5 MG Pantoprazole Sodium 40 mg DAILY@0600 PO 05/02/24 06:00 05/04/24 05:42 40 MG Risperidone 1 mg DAILY PO 05/02/24 10:00 05/04/24 09:52 1 MG Risperidone 2 mg HS PO 05/01/24 22:00 05/04/24 22:03 2 MG Trazodone HCl 100 mg HS PO 05/01/24 22:00 05/04/24 22:03 100 MG objective Gen.: Patient lying in bed in no apparent distress. On supplemental oxygen. Head: Normocephalic, atraumatic. Eyes: EOMI/PERRLA. Ears: Normal hearing. Normal anatomy. Neck/trachea: Trachea midline, supple. Nose: Normal external anatomy. Mouth: Moist mucous membranes. Chest: Decreased air entry bilaterally. No wheezing or rhonchi. Cardiovascular: Positive S1, positive S2. Regular rate and rhythm. Abdomen: Positive bowel sounds in all 4 quadrants. Soft, non-tender, non- distended. : Deferred. Rectal: Deferred. Skin: Warm, dry. Intact. Extremities: 2+ radial pulses bilaterally. No lower extremity edema. Neuro: Awake, alert, oriented x3. No gross motor or sensory deficits. Cranial nerves II through XII intact. Gait not assessed. laboratory and microbiology Laboratory Tests 05/03/24 05:56 05/01/24 09:26 Test 05/01/24 09:26 Range/Units Serum Glucose 188 H 74-106 mg/dL Assessment/Plan Impression: Acute hypoxic respiratory failure Acute pulmonary emboli Generalized weakness Elevated D-dimer Pneumonia likely Gram-negative Ground-glass opacities on imaging Mediastinal lymphadenopathy, reactive Obesity, BMI 33.5 Events: Remains on supplemental oxygen On 3 liters/minute via nasal cannula Taper O2 as tolerated. Continue antibiotics Continue bronchodilators IV steroids Incentive spirometry Blood cultures show no growth after 72 hours Therapeutic Lovenox Disposition per hospitalist. Labs and imaging reviewed Rest of plan as noted below Plan: CT of the chest report and images reviewed. Small subsegmental pulmonary emboli in the right lower lobe. Multifocal ground-glass opacity with constellation bilateral lower lobes. Reactive mediastinal lymphadenopathy. Supplemental oxygen keep O2 saturation above 92%. Continue antibiotics Follow up cultures Continue bronchodilators Continue therapeutic Lovenox Diet and lifestyle modifications for weight reduction given obesity DVT prophylaxis-on Lovenox Prognosis: Poor given multiple comorbidities. Rest of plan per hospitalist and other consultants. Thank you [facility] for allowing me to participate in this patient's care. Further recommendations will depend on patient's clinical course. Please do not hesitate to contact me if you have any questions or concerns. This medical document was created using an electronic medical record system with [employer] dictation system. Although this document has been carefully reviewed, there may still be some phonetic and typographical errors. These areas are purely typographical due to imperfections of the software programs, and do not reflect any compromise in the patient's medical care. Dietary Evaluation Review Comments: 1. Continue current diet 2. Consider prune juice if lactulose did not help or colace Expected Outcomes/Goals: 1. Pt will have more frequent BMs within 3-5 days Plan discussed with: Patient, Other (UZMA Andrade) MICHELLE TRENT MD May 04, 2024 23:43
[2024-05-05] VITALS (9 sets, daily range): BP systolic 99–148; BP diastolic 65–87; PULSE 81–118; RESP 17–20; TEMP 97.5–98.4; O2SAT 95–99
--- NOTE | 2024-05-05 10:22 | DVHPN2 ---
Reviewed: Care Plan, H&P, Labs, Medications, Previous Orders, Radiology Changes from previous H/P or p: No Changes Eyes: No Pain, No Vision change, No Conjunctivae inflammation, No Eyelid inflammation, No Other, No Redness ENT: No Ear pain, No Ear discharge, No Nose pain, No Nose discharge, No Nose congestion, No Mouth pain, No Mouth swelling, No Throat pain, No Throat swelling, No Other Cardiovascular: Chest Pain; No Palpitations, No Orthopnea, No Paroxysmal Noc. Dyspnea, No Edema, No Lt Headedness, No Other Respiratory: No Cough, No Dry; Shortness of breath, SOB with excertion; No Wheezing, No Hemoptysis, No Pleuritic Pain, No Sputum; Other (SOB at rest) Gastrointestinal: No Nausea, No Vomiting, No Abdominal Pain, No Diarrhea, No Constipation, No Melena, No Hematochezia, No Other Genitourinary: No Dysuria, No Frequency, No Incontinence, No Hematuria, No Retention, No Other Musculoskeletal: No other, No neck pain, No shoulder pain, No arm pain, No back pain, No hand pain, No leg pain, No foot pain Skin: No Rash, No Lesions, No Jaundice, No Bruising, No Other Objective Vitals Vital Signs Date Time Temp Pulse Resp B/P (MAP) Pulse Ox O2 Delivery O2 Flow Rate FiO2 05/05/24 08:54 98.1 89 18 133/87 (102) 99 98.1 05/05/24 08:05 Room Air* 0 N/A Nasal Cannula* Intake/Output Intake and Output 05/05/24 07:00 Intake Total 2770 ml Output Total 4050 ml Balance -1280 ml Intake Oral 2470 ml IV Total 300 ml Output Urine Total 4050 ml General Appearance: Alert, Oriented X3, Cooperative, No acute distress Lungs: Clear to auscultation Cardiovascular: Regular rate, Normal S1, Normal S2 Abdomen: Normal bowel sounds, Soft, No tenderness, No hepatospenomegaly Neuro: Normal gait, Normal speech, Strength at 5/5 X4 ext, Normal tone, S ensation intact, Cranial nerves 3-12 NL Psych/Mental Status: Mental status NL, Mood NL Medications Current Medications Medications Dose Ordered Sig/Mindy Route Start Time Stop Time Status Last Admin Dose Admin Ceftriaxone Sodium 50 ml @ 100 mls/hr DAILY@09 IV 05/01/24 09:00 1/8/25 08:45 100 MLS/HR Levothyroxine Sodium 25 mcg QAM@0600 PO 05/01/24 06:00 05/05/24 05:54 25 MCG Methylprednisolone Sodium Succinate 40 mg BID IV 05/01/24 10:00 05/05/24 10:06 40 MG Sodium Chloride 10 ml Q8HR IV 04/30/24 22:00 05/05/24 06:02 10 ML Acetaminophen/ Hydrocodone Bitart 1 tab Q4HP PRN PO 04/30/24 20:30 05/05/24 05:54 1 TAB Ondansetron HCl 4 mg Q4HP PRN IV 04/30/24 20:30 05/02/24 13:32 4 MG Docusate Sodium 100 mg BIDPRN PRN PO 04/30/24 20:30 05/02/24 18:21 100 MG Acetaminophen 650 mg Q6HP PRN PO 04/30/24 20:30 05/02/24 18:21 650 MG Enoxaparin Sodium 70 mg Q12HR SC 05/01/24 10:00 05/05/24 09:59 70 MG Azithromycin 250 ml @ 125 mls/hr DAILY@2200 IV 05/01/24 22:00 05/04/24 22:04 125 MLS/HR Nitroglycerin 0.4 mg Q5MINP PRN SL 04/30/24 21:00 Melatonin 5 mg HS PO 05/01/24 22:00 05/04/24 22:03 5 MG Pantoprazole Sodium 40 mg DAILY@0600 PO 05/02/24 06:00 05/05/24 05:54 40 MG Risperidone 1 mg DAILY PO 05/02/24 10:00 05/05/24 09:59 1 MG Risperidone 2 mg HS PO 05/01/24 22:00 05/04/24 22:03 2 MG Trazodone HCl 100 mg HS PO 05/01/24 22:00 05/04/24 22:03 100 MG Laboratory Results Laboratory Tests 05/01/24 09:26 05/03/24 05:56 Microbiology Microbiology Date/Time Source Procedure Growth Status 05/01/24 05:08 Nose MRSA Screen - Final Complete 04/30/24 19:55 Blood Blood Culture - Preliminary NO GROWTH AFTER 72 HOURS OF INCUBATION. Resulted Labs and/or images reviewed: Labs reviewed by me, Image(s) reviewed by me Assessment/Plan Assessment/Plan Acute hypoxic respiratory failure oxygen by nasal cannula Acute Pulmonary embolism : Lovenox therapeutic dose, consult by Dr. Roy appreciated Community-acquired pneumonia: Rocephin Levaquin Acute abdominal pain: KUB x-ray negative Depression with psychosis: Resume home meds Time spent 45 minutes Condition guarded DC tomorrow on Eliquis Plan discussed with: Patient Date of Service: May 05, 2024 Billing Provider: LEENA MANZANARES MD Common Visit Codes: [id number] INP/OBS CARE(HIGH) LEENA MANZANARES MD May 05, 2024 10:22
--- NOTE | 2024-05-05 20:26 | DVHPN2 ---
Progress Note - Dictate Date Seen: May 05, 2024 Medical Necessity Reason Pt with a Central, PICC or Fol: Yes The following are medically ne: Celaya Catheter Reason for celaya catheter: Strict I&O Subjective Patient seen and examined at bedside. Breathing comfortably on room air Overnight events reviewed. vital signs Vital Sign Date Time Temp Pulse Resp B/P (MAP) Pulse Ox O2 Delivery O2 Flow Rate FiO2 05/05/24 16:41 98.1 118 20 110/65 (80) 97 98.1 05/05/24 08:05 Room Air* 0 N/A Nasal Cannula* Total Intake and Output 05/04/24 05/04/24 05/05/24 15:00 23:00 07:00 Intake Total 170 ml 1550 ml 1050 ml Output Total 1650 ml 2400 ml Balance 170 ml -100 ml -1350 ml medications Current Medications Medications Dose Ordered Sig/Mindy Route Start Time Stop Time Status Last Admin Dose Admin Ceftriaxone Sodium 50 ml @ 100 mls/hr DAILY@09 IV 05/01/24 09:00 05/05/24 08:45 100 MLS/HR Levothyroxine Sodium 25 mcg QAM@0600 PO 05/01/24 06:00 05/05/24 05:54 25 MCG Methylprednisolone Sodium Succinate 40 mg BID IV 05/01/24 10:00 05/05/24 10:06 40 MG Sodium Chloride 10 ml Q8HR IV 04/30/24 22:00 05/05/24 13:36 10 ML Acetaminophen/ Hydrocodone Bitart 1 tab Q4HP PRN PO 04/30/24 20:30 05/05/24 05:54 1 TAB Ondansetron HCl 4 mg Q4HP PRN IV 04/30/24 20:30 05/02/24 13:32 4 MG Docusate Sodium 100 mg BIDPRN PRN PO 04/30/24 20:30 05/02/24 18:21 100 MG Acetaminophen 650 mg Q6HP PRN PO 04/30/24 20:30 05/02/24 18:21 650 MG Azithromycin 250 ml @ 125 mls/hr DAILY@2200 IV 05/01/24 22:00 05/04/24 22:04 125 MLS/HR Nitroglycerin 0.4 mg Q5MINP PRN SL 04/30/24 21:00 Melatonin 5 mg HS PO 05/01/24 22:00 05/04/24 22:03 5 MG Pantoprazole Sodium 40 mg DAILY@0600 PO 05/02/24 06:00 05/05/24 05:54 40 MG Risperidone 1 mg DAILY PO 05/02/24 10:00 05/05/24 09:59 1 MG Risperidone 2 mg HS PO 05/01/24 22:00 05/04/24 22:03 2 MG Trazodone HCl 100 mg HS PO 05/01/24 22:00 05/04/24 22:03 100 MG Enoxaparin Sodium 90 mg Q12HR SC 05/05/24 22:00 objective Gen.: Patient lying in bed in no apparent distress. On room air. Head: Normocephalic, atraumatic. Eyes: EOMI/PERRLA. Ears: Normal hearing. Normal anatomy. Neck/trachea: Trachea midline, supple. Nose: Normal external anatomy. Mouth: Moist mucous membranes. Chest: Decreased air entry bilaterally. No wheezing or rhonchi. Cardiovascular: Positive S1, positive S2. Regular rate and rhythm. Abdomen: Positive bowel sounds in all 4 quadrants. Soft, non-tender, non- distended. : Deferred. Rectal: Deferred. Skin: Warm, dry. Intact. Extremities: 2+ radial pulses bilaterally. No lower extremity edema. Neuro: Awake, alert, oriented x3. No gross motor or sensory deficits. Cranial nerves II through XII intact. Gait not assessed. laboratory and microbiology Laboratory Tests 05/03/24 05:56 05/01/24 09:26 Test 05/01/24 09:26 Range/Units Serum Glucose 188 H 74-106 mg/dL Assessment/Plan Impression: Acute hypoxic respiratory failure Acute pulmonary emboli Generalized weakness Elevated D-dimer Pneumonia likely Gram-negative Ground-glass opacities on imaging Mediastinal lymphadenopathy, reactive Obesity, BMI 33.5 Events: Tapered off supplemental oxygen Currently breathing on room air. Supplemental O2 PRN. Eliquis 10 mg PO BID for 7 days, then 5 mg PO BID. Continue antibiotics IV steroids Incentive spirometry Therapeutic Lovenox Recommend outpatient evaluation for LEANNA. Patient is stable for discharge from the pulmonary standpoint. Disposition per hospitalist. Follow up in 1-2 weeks in [facility] (204). Labs and imaging reviewed Rest of plan as noted below Plan: CT of the chest report and images reviewed. Small subsegmental pulmonary emboli in the right lower lobe. Multifocal ground-glass opacity with constellation bilateral lower lobes. Reactive mediastinal lymphadenopathy. Supplemental O2 PRN. keep O2 saturation above 92%. Continue antibiotics Blood cultures show no growth after 72 hours Continue bronchodilators PRN Therapeutic Lovenox Diet and lifestyle modifications for weight reduction given obesity DVT prophylaxis-on Lovenox Prognosis: Guarded given multiple comorbidities. Rest of plan per hospitalist and other consultants. Thank you CLIENT SUPPORT COORDINATOR Sindy for allowing me to participate in this patient's care. Further recommendations will depend on patient's clinical course. Please do not hesitate to contact me if you have any questions or concerns. This medical document was created using an electronic medical record system with [employer] dictation system. Although this document has been carefully reviewed, there may still be some phonetic and typographical errors. These areas are purely typographical due to imperfections of the software programs, and do not reflect any compromise in the patient's medical care. Dietary Evaluation Review Comments: 1. Continue current diet 2. Consider prune juice if lactulose did not help or colace Expected Outcomes/Goals: 1. Pt will have more frequent BMs within 3-5 days Plan discussed with: Patient, Other (UZMA Mc) MICHELLE TRENT MD May 05, 2024 20:26
[2024-05-05] MEDS: ENOXAPARIN SOD 100 MG/1 ML SYRINGE SC SCH (21:17)
[2024-05-06] VITALS (7 sets, daily range): BP systolic 98–146; BP diastolic 53–79; PULSE 66–114; RESP 18–20; TEMP 97.3–98.4; O2SAT 95–100
[2024-05-06] MEDS ORDERED: AZIT500T66 PO (09:42)
[2024-05-06] MEDS ORDERED: ALBUAER3 IN (09:42)
[2024-05-06] MEDS ORDERED: APIX5TAB PO (09:42)
--- NOTE | 2024-05-06 09:46 | DVHDS2 ---
Discharge Summary Date of Admission Apr 30, 2024 at 20:58 Date of Discharge: May 06, 2024 Admitting Diagnosis Shortness of breaths Labs/Diagnostic Data: Laboratory Results Test 05/03/24 05:56 05/01/24 09:26 04/30/24 21:59 04/30/24 19:55 White Blood Count 12.4 10^3/uL (4.4-10.8) Red Blood Count 4.22 10^6/uL (4.0-5.20) Hemoglobin 12.3 g/dL (12.2-16.2) Hematocrit 37.3 % (36.0-46.0) Mean Corpuscular Volume 88.3 fL (80.0-100.0) Mean Corpuscular Hemoglobin 29.2 pg (28.0-32.0) Mean Corpuscular Hemoglobin Concent 33.1 g/dL (32.0-36.0) Red Cell Distribution Width 14.3 % (11.8-14.3) Platelet Count 305 10^3/uL (140-450) Mean Platelet Volume 7.6 fL (6.9-10.8) Neutrophils (%) (Auto) % (37.0-80.0) Lymphocytes (%) (Auto) % (10.0-50.0) Monocytes (%) (Auto) % (0.0-12.0) Basophils (%) (Auto) % (0.0-2.0) Neutrophils # (Auto) 10 ^3/uL (1.6-8.6) Lymphocytes # (Auto) 10 ^3/uL (0.4-5.4) Monocytes # (Auto) 10 ^3/uL (0-1.3) Differential Total Cells Counted 100.0 (100) Neutrophils % (Manual) 83 (37.0-80.0) Band Neutrophils % (Manual) 2 Lymphocytes % (Manual) 9 (10.0-50.0) Monocytes % (Manual) 3 (0-12) Eosinophils % (Manual) 0 (0-7) Basophils % (Manual) 0 (0.0-2.0) Metamyelocytes % (manual) 1 Myelocytes % (Manual) 2 Promyelocytes % (Manual) 0 Blast Cells % (Manual) 0 Reactive Lymphocytes 0 Platelet Estimate Adequate Red Blood Cell Morphology Normal Potassium Level 4.5 mmol/L (3.5-5.1) Sodium Level 141 mmol/L (136-145) Chloride Level 109 mmol/L (98-107) Carbon Dioxide Level 24 mmol/L (20-31) Anion Gap 8 (5-15) Blood Urea Nitrogen 20 mg/dL (9-23) Creatinine 0.73 mg/dL (0.550-1.02) Glomerular Filtration Rate Calc 92 mL/min (>90) BUN/Creatinine Ratio 27.4 (10.0-20.0) Serum Glucose 188 mg/dL (74-106) Calcium Level 8.8 mg/dL (8.7-10.4) Total Bilirubin 0.5 mg/dL (0.2-1.0) Aspartate Amino Transferase (AST) 16 U/L (13-40) Alanine Aminotransferase (ALT) 34 U/L (7-40) Alkaline Phosphatase 90 U/L (46-116) Total Protein 5.7 g/dL (5.7-8.2) Albumin 3.1 g/dL (3.2-4.8) Troponin I High Sensitivity 4 ng/L (</=34) Lactic Acid Level 1.6 mmol/L (0.4-2.0) Test 04/30/24 18:32 04/30/24 18:00 04/30/24 00:00 Blood Gas Specimen Type Arterial Blood Gas Sample Site Right radial Blood Gas Patient Temperature 37.0 Arterial Blood Date Drawn [id number] Arterial Blood pH 7.548 (7.350-7.450) Arterial Blood Partial Pressure CO2 27.6 mmHg (32.0-45.0) Arterial Blood Partial Pressure O2 57.3 mmHg (83.0-108.0) Arterial Blood HCO3 23.5 mmol/L (21.0-28.0) Arterial Blood Oxygen Saturation 91.3 % (94.0-98.0) Arterial Blood Base Excess 2.4 mmol/L (-2.0-3.0) Arterial Blood Oxyhemoglobin 90.3 % (94.0-98.0) Arterial Blood Carboxyhemoglobin 0.8 % (0.5-1.5) Arterial Blood Methemoglobin 0.3 % (0.0-1.5) Jer Test Yes Blood Gas Total Hemoglobin 15.50 g/dL (12.0-16.0) Blood Gas Modality Room air FiO2 % 21.0 Prothrombin Time 11.4 sec (9.3-11.8) Prothrombin Time INR 1.08 (0.9-1.15) Activated Partial Thromboplast Time 22.5 SEC (24.5-34.5) D-Dimer, Quantitative 4.89 mg/L FEU (0.0-0.49) B-Type Natriuretic Peptide 56.81 pg/mL (0-100) Influenza Type A Antigen Negative (Negative) Influenza Type B Antigen Negative (Negative) SARS-CoV-2 Antigen (Rapid) Negative (NEGATIVE) Other Laboratory Tests 05/03/24 05:56 05/01/24 09:26 Brief Hx & Hospital Course: 63-year-old female with a history of depression came in for shortness of breaths found to have acute hypoxic respiratory failure secondary to acute bilateral pulmonary embolism treated with Lovenox therapeutic dose and being transitioned to Eliquis. Seen by pulmonology Dr. Roy possible community-acquired pneumonia treated with Rocephin and Levaquin patient also complained of abdominal pain KUB x-ray was negative home medications continued for depression at the time of discharge patient on room air discharged home on Gorge and [place] OLSONI she will follow up with the primary Dr and Dr. Roy. Consults/Reason for consult Pulmonology Dr. Roy Operations or Procedures CT chest angiogram with contrast Condition at Discharge: Fair Final Diagnosis/Problems List Acute hypoxic respiratory failure oxygen by nasal cannula Acute Pulmonary embolism : Lovenox therapeutic dose, consult by Dr. Roy appreciated Community-acquired pneumonia: Rocephin Levaquin Acute abdominal pain: KUB x-ray negative Depression with psychosis: Resume home meds Discharge Disposition: Home Discharge Instruct/Medications Diet: Cardiac 2g Na,low cholest Activity: Light activity Follow Up/Referral: Resume all previous home medications Follow up with your primary Dr in one week Follow up with the pulmonology Dr. Roy in one week Return to ER if symptoms worsen Medications: Gorge CHANCE Transmitted to the pharmacy Reviewed all previous home medications 39 (Time taken for discharge summary 39 minutes) Discharge Statement: "Patient was advised to return to the ER or call 911 if any headaches, dizziness, shortness of breath, chest pain, abdominal pain, bleeding, fevers, or worsening of medical condition. Patient was counseled about treatment plan, medications, possible side effects, patientverbalized understanding. All questions were answered to the best of my ability. This discharge took greater then 30 minutes in planning, reviewing documentation, counseling the patient, and discussing with other team members." ASSESSMENT ASSESSMENT Hospital Course Improved Assessment Acute hypoxic respiratory failure oxygen by nasal cannula Acute Pulmonary embolism : Lovenox therapeutic dose, consult by Dr. Roy appreciated Community-acquired pneumonia: Rocephin Levaquin Acute abdominal pain: KUB x-ray negative Depression with psychosis: Resume home meds Date of Service: May 06, 2024 Billing Provider: LEENA MANZANARES MD Common Visit Codes: 23248-PTZ/OBS DISCH DAY >30min LEENA MANZANARES MD May 06, 2024 09:46
[2024-05-06] MEDS: PNEUMOCOCCAL VACC POLYS 25 MCG/0.5 ML VIAL IM ONE (14:14)
[2024-05-06] MEDS: INFLUENZA TRIVALENT 2024-2025 0.5 ML INJ IM ONE (14:15)
--- NOTE | 2024-05-06 23:12 | DVHPN2 ---
Progress Note - Dictate Date Seen: May 06, 2024 Medical Necessity Reason Pt with a Central, PICC or Fol: Yes The following are medically ne: Celaya Catheter Reason for celaya catheter: Strict I&O Subjective Patient seen and examined at bedside. Breathing comfortably on room air Overnight events reviewed. vital signs Vital Sign Date Time Temp Pulse Resp B/P (MAP) Pulse Ox O2 Delivery O2 Flow Rate FiO2 05/06/24 16:51 98.1 104 18 102/53 (69) 97 98.1 05/06/24 07:35 Room Air* 0 N/A Nasal Cannula* Total Intake and Output 05/05/24 05/05/24 05/06/24 15:00 23:00 07:00 Intake Total 170 ml 778 ml 1225 ml Output Total 1900 ml Balance 170 ml 778 ml -675 ml objective Gen.: Patient lying in bed in no apparent distress. On room air. Head: Normocephalic, atraumatic. Eyes: EOMI/PERRLA. Ears: Normal hearing. Normal anatomy. Neck/trachea: Trachea midline, supple. Nose: Normal external anatomy. Mouth: Moist mucous membranes. Chest: Decreased air entry bilaterally. No wheezing or rhonchi. Cardiovascular: Positive S1, positive S2. Regular rate and rhythm. Abdomen: Positive bowel sounds in all 4 quadrants. Soft, non-tender, non- distended. : Deferred. Rectal: Deferred. Skin: Warm, dry. Intact. Extremities: 2+ radial pulses bilaterally. No lower extremity edema. Neuro: Awake, alert, oriented x3. No gross motor or sensory deficits. Cranial nerves II through XII intact. Gait not assessed. laboratory and microbiology Laboratory Tests 05/03/24 05:56 05/01/24 09:26 Test 05/01/24 09:26 Range/Units Serum Glucose 188 H 74-106 mg/dL Assessment/Plan Impression: Acute hypoxic respiratory failure Acute pulmonary emboli Generalized weakness Elevated D-dimer Pneumonia likely Gram-negative Ground-glass opacities on imaging Mediastinal lymphadenopathy, reactive Obesity, BMI 33.5 Events: Remains on room air. Supplemental O2 PRN. Transitioned to Eliquis Eliquis 10 mg PO BID for 7 days, then 5 mg PO BID. Continue antibiotics IV steroids Incentive spirometry Therapeutic Lovenox Recommend outpatient evaluation for LEANNA. Patient is stable for discharge from the pulmonary standpoint. Disposition per hospitalist. Follow up in 1-2 weeks in Pulmonary Clinic (204). Labs and imaging reviewed Rest of plan as noted below Plan: CT of the chest report and images reviewed. Small subsegmental pulmonary emboli in the right lower lobe. Multifocal ground-glass opacity with constellation bilateral lower lobes. Reactive mediastinal lymphadenopathy. Supplemental O2 PRN. keep O2 saturation above 92%. Continue antibiotics Blood cultures show no growth after 72 hours Continue bronchodilators PRN Therapeutic Lovenox Diet and lifestyle modifications for weight reduction given obesity DVT prophylaxis-on Lovenox Prognosis: Guarded given multiple comorbidities. Rest of plan per hospitalist and other consultants. Thank you [facility] for allowing me to participate in this patient's care. Further recommendations will depend on patient's clinical course. Please do not hesitate to contact me if you have any questions or concerns. This medical document was created using an electronic medical record system with benchee dictation system. Although this document has been carefully reviewed, there may still be some phonetic and typographical errors. These areas are purely typographical due to imperfections of the software programs, and do not reflect any compromise in the patient's medical care. Dietary Evaluation Review Comments: 1. Continue current diet 2. Consider prune juice if lactulose did not help or colace Expected Outcomes/Goals: 1. Pt will have more frequent BMs within 3-5 days Plan discussed with: Patient, Other (MICHELLE Craft MD May 06, 2024 23:12
== END 2024-05-06 17:07 | disposition home health service (06) | DRG 720 ==
LOC: EDBD 15:40 → ER 15:40 → TELE 20:58 → TELE-EAST 05-01 03:57
PROVIDERS: ADMIT Family Medicine; ATTEND Family Medicine
DX: A41.50 Gram-negative sepsis, unspecified (principal); J96.01 Acute respiratory failure with hypoxia; J15.69 Pneumonia due to other Gram-negative bacteria; F32.3 Major depressive disorder, single episode, severe with psychotic features; I26.93 Single subsegmental thrombotic pulmonary embolism without acute cor pulmonale; J15.9 Unspecified bacterial pneumonia; R79.89 Other specified abnormal findings of blood chemistry; D72.89 Other specified disorders of white blood cells; E66.9 Obesity, unspecified; Z68.33 Body mass index [BMI] 33.0-33.9, adult; Z20.822 Contact with and (suspected) exposure to COVID-19; J44.0 Chronic obstructive pulmonary disease with (acute) lower respiratory infection; R65.20 Severe sepsis without septic shock; E03.9 Hypothyroidism, unspecified; R59.0 Localized enlarged lymph nodes; Z88.8 Allergy status to other drugs, medicaments and biological substances; Z83.3 Family history of diabetes mellitus; Z80.3 Family history of malignant neoplasm of breast; Z79.01 Long term (current) use of anticoagulants
CPT/HCPCS: 36415; 36600; 71045; 71275; 74018; 76705; 80053; 82805; 83605; 83880; 84132; 84484; 85007; 85027; 85379; 85610; 85730; 87040; 87081; 87426; 87804; 97163; G0378; J2405; J3490

== ENCOUNTER 2024-09-16 19:34 | Inpatient (IN) | payer MEDICAID ==
[~2024-09-16] VITALS: Ht 157.5 cm; Wt 83.2 kg
[~2024-09-16 19:34] MED LIST changes: +ALBUAER3 IN; +APIX5TAB PO; +AZIT500T66 PO
--- NOTE | 2024-09-16 20:29 | ED.PDOC ---
General HPI Comments HPI: Poor Historian. 64-year-old female presents to emergency department for evaluation of one-week history of suprapubic pain. She states specifically where her vagina is. Patient has an indwelling suprapubic [place] catheter due to bladder dysfunction status post spinal cyst resection surgery. Patient has been on antibiotics for a UTI for the last week but it is not getting any better. Her pain has been going on for one-week as well. Past Medical History: Indwelling suprapubic [place] catheter, bladder dysfunction Past Surgical History: Spinal cyst resection REVIEW OF SYSTEMS: CONSTITUTIONAL: Denies acute: fever, diaphoresis, chills, HEAD: Denies acute: headache, photophobia Eyes: Denies acute: Double vision, vision loss, eye pain, eye discharge. EARS: Denies acute: tinnitus, hearing loss, ear discharge, ear pain, THROAT: Denies acute: sore throat, swelling, difficulty swallowing , pain with swallowing, change in voice. NECK: Denies acute: neck pain, neck swelling, stiff neck. HEART: Denies acute : chest pain, palpitations, LUNGS: Denies acute: SOB, wheezing, cough, hemoptysis ABDOMEN: Denies acute: Nausea, Vomiting, diarrhea, melena , hematemesis, hematochezia SKIN: Denies acute: rash, redness, lesions, itchiness. EXTREMITIES: Denies acute: calf pain, numbness, tingling, weakness, denies pain in extremity. Denies acute: Low back pain. Neuro: Denies acute: focal neurological deficit, motor or sensory focal neurological deficit, tremors, seizure like activity, confusion, dizziness, change in mental status, loss of bowel or bladder function, cauda equina like symptoms. : Denies acute: dysuria, hematuria, flank pain, increase in urinary frequency. PSYCH: Denies acute: hallucination, suicidal ideation, homicidal ideation. FEMALE: Denies acute: abnormal vaginal bleeding, foul odor, unusual discharge. PHYSICAL EXAM: General: ----moderate to severe----acute distress, awake and alert. Head: normocephalic, atraumatic. Neck: supple, trachea is midline, no swelling. Throat: Normal phonation. Eyes:, no erythema, no purulent discharge, no proptosis, no icterus. Heart: regular rate, tachycardia, no significant murmur appreciated. Lungs: no apparent respiratory distress, Able to speak in full sentences. No wheezing, no rhonchi, no crackles. No stridors Clear to auscultation bilaterally. Abdomen: Suprapubic tender to palpation, non distended, soft, no guarding, no rebound, + bowel sounds. Indwelling suprapubic [place] catheter. Most recently replaced on September 02 of this month. Neuro: Awake, Alert, oriented to name, self, situation, follows commands GCS=15. Speech is normal. Skin: no petechia, no purpura, no cyanosis, non-pale, not jaundice. Lower extremities: --no - Pitting edema no deformity, no focal swelling, no calf TTP. Makes eye contact. moves all four extremities. Face: no apparent facial droop. ED COURSE: Chief Complaint: Urinary Time Seen by MD: 20:13 Primary Care Provider: ERICH Reviewed notes: Nurses Notes, Medications, Allergies Allergies: Coded Allergies: NO KNOWN ALLERGIES (Unverified , 05/02/24) Home Meds Active Scripts Albuterol Sulfate (VENTOLIN MDI) 90 Mcg Ih, 90 MCG IN Q4HR PRN, #1 INH Prov:LEENA MANZANARES MD 05/06/24 Apixaban Base (ELIQUIS) 5 Mg Tab, 10 MG PO BID for 7 Days, #14 TAB 10MG BID X 7 DAYS THEN 5MG PO BID FOR AT LEAST 6 MONTHS FOR DVT/PE TREATMENT Prov:LEENA MANZANARES MD 05/06/24 Apixaban Base (ELIQUIS) 5 Mg Tab, 5 MG PO BID, #180 TAB Prov:LEENA MANZANARES MD 05/06/24 Reported Medications Risperidone (Risperdal) 2 Mg Tab, 2 MG PO QPM, TAB 04/16/24 Hydrocodone-Acetaminophen (Hydrocodone Bitartrate/AC 10-325 mg) 1 Tab Tab, 1 TAB PO TIDP PRN for severe pain, TAB 05/03/23 Risperidone (Risperidone) 1 Mg Tab, 1 MG PO QAM, TAB 05/03/23 Cyclobenzaprine HCl (Cyclobenzaprine Hydrochlo) 10 Mg Tab, 1 TAB PO BID 06/07/22 Trazodone Hcl (Trazodone Hcl) 100 Mg Tab, 1 TAB PO HS 06/07/22 Levothyroxine Sodium (Levothyroxine Sodium) 25 Mcg Tab, 25 MCG PO QAM, MCG 07/18/20 Information Source: Patient Past Medical History PAST MEDICAL HISTORY: Anxiety, Depression, Thyroid, UTI'S [employer] History: No Pertinent [employer] History Family History Family History: Reviewed,noncontributory to illness, No family hx of Cancer, No family hx of DM, No family hx of Heart flores, No family hx of HTN, No family hx ofKidney flores, No family hx of Liver flores, No family hx of Lung flores, No family hx of Stroke Social History Smoker: Non-Smoker Alcohol: Denies ETOH Use Drugs: Denies Drug Use Lives In: Home Was a procedure done? Was a procedure done?: No Differential Diagnosis Kidney stone (Female): N/A Urinary Problem (Female): PID, Pyelonephritis, Urinary retention, Urolithiasis, Vaginitis X-Ray, Labs, Meds, VS Vital Signs Date Time Temp Pulse Resp B/P (MAP) Pulse Ox O2 Delivery O2 Flow Rate FiO2 09/16/24 22:14 98.8 93 28 128/72 (90) 99 98.8 09/16/24 21:00 111 09/16/24 20:40 118 09/16/24 20:15 97.7 114 27 125/79 (94) 98 97.7 Lab Test 09/16/24 22:46 09/16/24 22:20 09/16/24 21:37 09/16/24 20:44 Range/Units Lactic Acid Level 1.4 3.4 *H 0.4-2.0 mmol/L Urine Color Light-orange Yellow Urine Clarity Ex.turbid Clear Urine pH 5.5 5.0-9.0 Urine Specific [place] 1.025 1.001-1.035 Urine Protein 1+ H Negative Urine Ketones Trace Negative Urine Blood 2+ H Negative /uL Urine Nitrite 2+ H Negative Urine Bilirubin Negative Negative Urine Urobilinogen Normal Negative mg/dL Urine Leukocyte Esterase 3+ Negative /uL Urine RBC 88 0 - 4 /hpf Urine WBC Clumps Present None Seen /hpf Urine Microscopic WBC 567 H 0-5 /HPF Urine Squamous Epithelial Cells Few <5 /hpf Urine Amorphous Crystals Few None Seen /hpf Urine Bacteria Few H None Seen /hpf Urine Mucus Few None Seen Urine Glucose Normal Normal mg/dL Troponin I High Sensitivity 3 L </=34 ng/L Test 09/16/24 20:40 09/16/24 20:23 Range/Units White Blood Count 10.5 4.4-10.8 10^3/uL Red Blood Count 5.88 H 4.0-5.20 10^6/uL Hemoglobin 17.1 H 12.2-16.2 g/dL Hematocrit 50.8 H 36.0-46.0 % Mean Corpuscular Volume 86.3 80.0-100.0 fL Mean Corpuscular Hemoglobin 29.0 28.0-32.0 pg Mean Corpuscular Hemoglobin Concent 33.6 32.0-36.0 g/dL Red Cell Distribution Width 15.5 H 11.8-14.3 % Platelet Count 224 140-450 10^3/uL Mean Platelet Volume 7.8 6.9-10.8 fL Neutrophils (%) (Auto) 37.0-80.0 % Lymphocytes (%) (Auto) 10.0-50.0 % Monocytes (%) (Auto) 0.0-12.0 % Basophils (%) (Auto) 0.0-2.0 % Neutrophils # (Auto) 1.6-8.6 10 ^3/uL Lymphocytes # (Auto) 0.4-5.4 10 ^3/uL Monocytes # (Auto) 0-1.3 10 ^3/uL Differential Total Cells Counted 100.0 100 Neutrophils % (Manual) 27 L 37.0-80.0 Band Neutrophils % (Manual) 0 Lymphocytes % (Manual) 58 H 10.0-50.0 Monocytes % (Manual) 11 0-12 Eosinophils % (Manual) 0 0-7 Basophils % (Manual) 0 0.0-2.0 Metamyelocytes % (manual) 0 Myelocytes % (Manual) 0 Promyelocytes % (Manual) 0 Blast Cells % (Manual) 0 Reactive Lymphocytes 4 Platelet Estimate Adequate Sodium Level 144 136-145 mmol/L Potassium Level 3.9 3.5-5.1 mmol/L Chloride Level 110 H 98-107 mmol/L Carbon Dioxide Level 21 20-31 mmol/L Anion Gap 13 5-15 Blood Urea Nitrogen 23 9-23 mg/dL Creatinine 1.12 H 0.550-1.02 mg/dL Glomerular Filtration Rate Calc 55 >90 mL/min BUN/Creatinine Ratio 20.5 H 10.0-20.0 Serum Glucose 96 74-106 mg/dL Calcium Level 9.9 8.7-10.4 mg/dL Magnesium Level 2.2 1.6-2.6 mg/dL Total Bilirubin 0.7 0.2-1.0 mg/dL Aspartate Amino Transferase (AST) 20 13-40 U/L Alanine Aminotransferase (ALT) 24 7-40 U/L Alkaline Phosphatase 81 46-116 U/L Troponin I High Sensitivity 3 L </=34 ng/L Total Protein 7.5 5.7-8.2 g/dL Albumin 4.7 3.2-4.8 g/dL Lipase 31 12-53 U/L POC Glucose 88 70-106 mg/dl Microbiology Date/Time Source Procedure Growth Status 09/16/24 22:20 Voided Urine Urine Culture - Preliminary Resulted 09/16/24 20:44 Blood Blood Culture - Preliminary NO GROWTH AFTER 24 HOURS OF INCUBATION. Resulted 09/16/24 20:40 Blood Blood Culture - Preliminary NO GROWTH AFTER 24 HOURS OF INCUBATION. Resulted Time of 1ST Reevaluation: 00:00 Reevaluation 1ST: Improved Patient Education/Counseling: Diagnosis, Treatment Family Education/Counseling: No Family Present Comments Patient presented with the above HPI.---suprapubic pain---workup was initiated. patient was found with the above mentioned diagnosis. the following medications were ordered: please refer to order lists of meds and tests obtained by myself Dr. Tadeo. Patient ED course and VS have been stabilized. Patient has been reassessed in the ED and remained in a stable condition. Pertinent incidental findings were discussed with the patient and/or family. Patient/family voices understanding and is agreeable with plan. Patient has been observed in the ED adequate length of time to insure improvement/stability. Escalation of care considered: Consideration of escalation to observation or admission Patient was ADMITTED to the medicine team for further evaluation and treatment of their presentation. All the reports of any imaging studies that were ordered by myself were reviewed by myself. Departure 1 Departure Time of Disposition: 21:12 Impression: Primary Impression: Suprapubic abdominal pain Additional Impressions: UTI (urinary tract infection) Chronic suprapubic catheter Disposition: ADMITTED INPATIENT Admit to: Tele Condition: Guarded Discharged With: Self Critical Care Note Critical Care Time?: No DAVY TADEO DO September 16, 2024 20:29
[2024-09-16] MEDS: SODIUM CHLORIDE 0.9% 1,000 ML IV ONE ×2 (20:48)
[2024-09-16] MEDS: PIPERACILLIN-TAZOB 3.375GM 100 ML IV ONE (20:51)
[2024-09-16 21:11] LABS: Hematocrit 50.8 % (36.0-46.0); Hemoglobin 17.1 g/dL (12.2-16.2); Mean Corpuscular Hgb Conc. 33.6 g/dL (32.0-36.0); Mean Corpuscular Volume 86.3 fL (80.0-100.0); Platelet Count (auto) 224 10^3/uL (140-450); Red Blood Cells 5.88 10^6/uL (4.0-5.20); Red Cell Distribution Width 15.5 % (11.8-14.3); White Blood Cell 10.5 10^3/uL (4.4-10.8)
[2024-09-16 21:28] LABS: Alanine Aminotransferase 24 U/L (7-40); Albumin 4.7 g/dL (3.2-4.8); Alkaline Phosphatase 81 U/L (46-116); Anion Gap 13 (5-15); Aspartate Aminotransferase 20 U/L (13-40); BUN/Creatinine Ratio 20.5 (10.0-20.0); Bilirubin, Total 0.7 mg/dL (0.2-1.0); Blood Urea Nitrogen 23 mg/dL (9-23); Calcium 9.9 mg/dL (8.7-10.4); Carbon Dioxide 21 mmol/L (20-31); Glucose 96 mg/dL (74-106); Lipase 31 U/L (12-53); Magnesium 2.2 mg/dL (1.6-2.6); Potassium 3.9 mmol/L (3.5-5.1); Sodium 144 mmol/L (136-145); Total Protein 7.5 g/dL (5.7-8.2)
--- NOTE | 2024-09-16 21:30 | DVH ---
CHEST RADIOGRAPH Indication: abd pain Technique: Single frontal view of the chest was obtained COMPARISON: XY CHEST PORTABLE on DOS: 04/30/24 FINDINGS: Lines and Tubes: None Lungs: Clear Pleura: No effusion. No pneumothorax. Cardiomediastinal contours: Unremarkable IMPRESSION: No abnormality demonstrated.
[2024-09-16 21:36] LABS: Band Neutrophils % (manual) 0; Basophils % (manual) 0 (0.0-2.0); Blast Cells 0; Eosinophils % (manual) 0 (0-7); Metamyelocytes % 0; Myelocytes % 0; Promyelocytes % 0
[2024-09-16 21:38] LABS: Chloride 110 mmol/L (98-107)
[2024-09-16] MEDS: HYDROcodone-ACET 10/325MG TAB PO ONE (21:38)
--- NOTE | 2024-09-16 21:41 | DVH ---
Exam: CT CT AB PEL WO CON-NO ORAL OR IV History: suprapubic pain. Comparison Study: CT CT AB PEL WO CON-NO ORAL OR IV on DOS: 04/19/24 Technique: Multidetector spiral CT of the abdomen was performed from lung bases to pubic symphysis. Imaging was performed without IV contrast. Axial, coronal and sagittal multiplanar reformats were ob tained from the axial data set by the technologist. Radiation Dose : 1. Abdomen/Pelvis: CTDIvol mGy, DLP mGy*cm. Findings: Evaluation of solid organs is limited due to lack of intravenous contrast use. Lung Bases: No abnormality demonstrated. Liver: Liver is normal in size. No focal lesions noted. Gallbladder and Biliary Tree: No abnormality demonstrated. Spleen: No abnormality demonstrated. Pancreas: No abnormality demonstrated. Adrenal Glands: No abnormality demonstrated. Kidneys: No abnormality demonstrated. 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 Small cyst noted in the upper pole of the left kidney. No hydroureteronephrosis. Bladder: Non distended. Suprapubic catheter present. Bowel: Stomach appears grossly unremarkable. No abnormally dilated or thick-walled loops of large or small bowel noted. Mild left-sided colonic diverticulosis without evidence of acute diverticulitis. M oderate amount of stool present in the large bowel. Appendix appears unremarkable. Ascites: Absent Lymphadenopathy: No evidence of lymphadenopathy. Abdominal Wall and Mesentery: Unremarkable. Vasculature: Unremarkable given lack of intravenous contrast. Pelvic Organs: Enlarged uterus containing fibroids. Musculoskeletal: No bony lesions or fracture. IMPRESSION: No acute abdominal or pelvic findings. Radiation optimization: All CT scans at this facility use at least one of these dose optimization genoveva hniques: automated exposure control mA and/or kV adjustment per patient size (includes targeted exam s where dose is matched to clinical indication) or iterative reconstruction.
[2024-09-16 21:49] LABS: Lactic Acid w/Reflex 3.4 mmol/L (0.4-2.0)
[2024-09-16 22:17] LABS: Lymphocytes % (manual) 58 (10.0-50.0); Monocytes % (manual) 11 (0-12); Platelet Estimate Adequate; Reactive Lymphocytes 4
[2024-09-16] MEDS ORDERED: ACETAMINOPHEN 325 MG TAB PO PRN (22:30)
[2024-09-16 22:36] LABS: Urine Amorphous Crystal FEW /hpf (None Seen); Urine Bacteria FEW /hpf (None Seen); Urine Blood 2+ /uL (Negative); Urine Clarity Ex.Turbid (Clear); Urine Color Light-Orange (Yellow); Urine Mucus FEW (None Seen); Urine Protein, UAD 1+ (Negative); Urine Specific Gravity 1.025 (1.001-1.035); Urine Squamous Epithelial Cell FEW /hpf (<5); Urine Urobilinogen Normal (Negative); Urine WBC 567 /HPF (0-5); Urine WBC Clumps PRESENT /hpf (None Seen); Urine pH 5.5 (5.0-9.0)
[2024-09-16] MEDS ORDERED: MORPHINE SULFATE INJ 2 MG/ml SYRG IV PRN (23:00)
[2024-09-16] MEDS ORDERED: ALBUTEROL SULF 2.5 MG/0.5ML(0.5%) NEB SOLN NEB PRN (23:00)
[2024-09-16] MEDS ORDERED: NITROGLYCERIN 0.4 MG SL TAB SL PRN (23:00)
--- NOTE | 2024-09-16 23:05 | DVHHP2 ---
History of Present Illness Reason for Visit: Suprapubic abdominal pain History of Present Illness The patient is a 64-year-old female with past medical history of bladder dysfunction status post suprapubic catheter, spinal cysts, depression, bipolar disorder, anxiety, and pulmonary embolism presented to [facility] ED with complaint of suprapubic pain. Patient reports she has been on antibiotics for UTI for the past 1 week, but is not getting better, has been going on with severe pain. Patient was seen and evaluated in the ED, laboratory data shows WBC 10.5, platelets 224, sodium 144, potassium 3.9, BUN 23, creatinine 1.12, glucose 96, lactic acid 3.4, troponin 3, lipase 31, blood pressure 128/72, heart rate 93, temperature 98.8 F, O2 saturation 99% on room air. Urinalysis positive for urinary tract infection. Patient was started on IV antibiotic regimen Zosyn, please see medication orders section in the computer. On my assessment, patient denied chest pain, no headache, no dizziness, no diaphoresis, no shortness of breaths, no nausea, no vomiting, no fever, no chills. Patient was admitted for further evaluation and medical management. Past Medical History Anxiety, Bladder dysfunction, Spinal cyst, Depression, Bipolar disorder, Pulmonary embolism Past Surgical History Indwelling suprapubic [place] catheter, Spinal cyst resection Family History Reviewed, noncontributory to the management of this case. Past Social History The patient lives at home, denies smoking, alcohol or illicit drugs abuse. Review of Systems Constitutional: Yes: Weakness; No: Fever, Chills, Sweats, Malaise, Other Eyes: No: Pain, Vision change, Conjunctivae inflammation, Eyelid inflammation, Other, Redness ENT: No: Ear pain, Ear discharge, Nose pain, Nose discharge, Nose congestion, Mouth pain, Mouth swelling, Throat pain, Throat swelling, Other Respiratory: No: Cough, Dry, Shortness of breath, SOB with excertion, Wheezing, Hemoptysis, Pleuritic Pain, Sputum, Wheezing, Other Cardiovascular: No: Chest Pain, Palpitations, Orthopnea, Paroxysmal Noc. Dyspnea, Edema, Lt Headedness, Other Gastrointestinal: Abdominal Pain (Suprapubic); No: Nausea, Vomiting, Diarrhea, Constipation, Melena, Hematochezia, Other Genitourinary: No Dysuria, No Frequency, No Incontinence, No Hematuria, No Retention; Other (Vail catheter in place) Musculoskeletal: No: other, neck pain, shoulder pain, arm pain, back pain, hand pain, leg pain, foot pain Skin: No: Rash, Lesions, Jaundice, Bruising, Other Neurological: No: Weakness, Numbness, Incoordination, Change in speech, Confusion, Seizures, Other Allergies: Coded Allergies: NO KNOWN ALLERGIES (Unverified , 05/02/24) Medications Current Medications Medications Dose Ordered Sig/Mindy Route Start Time Stop Time Status Last Admin Dose Admin Piperacillin Sod/ Tazobactam Sod 100 ml @ 25 mls/hr Q8HR IV 09/17/24 06:00 Sodium Chloride 10 ml Q8HR IV 09/17/24 06:00 Acetaminophen/ Hydrocodone Bitart 1 tab Q4HP PRN PO 09/16/24 22:30 Ondansetron HCl 4 mg Q4HP PRN IV 09/16/24 22:30 Docusate Sodium 100 mg BIDPRN PRN PO 09/16/24 22:30 Acetaminophen 650 mg Q6HP PRN PO 09/16/24 22:30 Morphine Sulfate 2 mg Q4HPRN PRN IV 09/16/24 22:30 Nitroglycerin 0.4 mg Q5MINP PRN SL 09/16/24 23:00 UNV Morphine Sulfate 2 mg Q30M PRN IV 09/16/24 23:00 UNV Trazodone HCl 50 mg HS PO 09/17/24 22:00 UNV Albuterol 2.5 mg Q4HPRN PRN NEB 09/16/24 23:00 UNV Risperidone 1 mg QAM PO 09/17/24 07:00 UNV Exam Vital Signs Vital Signs Date Time Temp Pulse Resp B/P (MAP) Pulse Ox O2 Delivery O2 Flow Rate FiO2 09/16/24 22:14 98.8 93 28 128/72 (90) 99 98.8 General Appearance: Alert, Oriented X3, Cooperative, No acute distress HEENT: Atraumatic, PERRLA, EOMI, Mucous membr. moist/pink Respiratory: Clear to auscultation, Normal air movement Cardiovascular: Regular rate, Normal S1, Normal S2, No murmurs Abdominal: Normal bowel sounds, Soft, No hepatospenomegaly, No masses, Other (Reports tenderness) Extremities: No clubbing, No cyanosis, No edema, Normal pulses, No tenderness/swelling Skin: No rashes, No breakdown, No significant lesion Neuro: Normal speech, Normal tone, Sensation intact, Cranial nerves 3-12 NL, Reflexes 2+, Other (Weakness) Psych/Mental Status: Mental status NL, Mood NL Labs/Xrays Labs Test 09/16/24 22:46 09/16/24 22:20 09/16/24 21:37 09/16/24 20:40 Range/Units Urine Color Light-orange Yellow Urine Clarity Ex.turbid Clear Urine pH 5.5 5.0-9.0 Urine Specific [place] 1.025 1.001-1.035 Urine Protein 1+ H Negative Urine Ketones Trace Negative Urine Blood 2+ H Negative /uL Urine Nitrite 2+ H Negative Urine Bilirubin Negative Negative Urine Urobilinogen Normal Negative mg/dL Urine Leukocyte Esterase 3+ Negative /uL Urine RBC 88 0 - 4 /hpf Urine WBC Clumps Present None Seen /hpf Urine Microscopic WBC 567 H 0-5 /HPF Urine Squamous Epithelial Cells Few <5 /hpf Urine Amorphous Crystals Few None Seen /hpf Urine Bacteria Few H None Seen /hpf Urine Mucus Few None Seen Urine Glucose Normal Normal mg/dL Troponin I High Sensitivity 3 L </=34 ng/L White Blood Count 10.5 4.4-10.8 10^3/uL Red Blood Count 5.88 H 4.0-5.20 10^6/uL Hemoglobin 17.1 H 12.2-16.2 g/dL Hematocrit 50.8 H 36.0-46.0 % Mean Corpuscular Volume 86.3 80.0-100.0 fL Mean Corpuscular Hemoglobin 29.0 28.0-32.0 pg Mean Corpuscular Hemoglobin Concent 33.6 32.0-36.0 g/dL Red Cell Distribution Width 15.5 H 11.8-14.3 % Platelet Count 224 140-450 10^3/uL Mean Platelet Volume 7.8 6.9-10.8 fL Neutrophils (%) (Auto) 37.0-80.0 % Lymphocytes (%) (Auto) 10.0-50.0 % Monocytes (%) (Auto) 0.0-12.0 % Basophils (%) (Auto) 0.0-2.0 % Neutrophils # (Auto) 1.6-8.6 10 ^3/uL Lymphocytes # (Auto) 0.4-5.4 10 ^3/uL Monocytes # (Auto) 0-1.3 10 ^3/uL Differential Total Cells Counted 100.0 100 Neutrophils % (Manual) 27 L 37.0-80.0 Band Neutrophils % (Manual) 0 Lymphocytes % (Manual) 58 H 10.0-50.0 Monocytes % (Manual) 11 0-12 Eosinophils % (Manual) 0 0-7 Basophils % (Manual) 0 0.0-2.0 Metamyelocytes % (manual) 0 Myelocytes % (Manual) 0 Promyelocytes % (Manual) 0 Blast Cells % (Manual) 0 Reactive Lymphocytes 4 Platelet Estimate Adequate Sodium Level 144 136-145 mmol/L Potassium Level 3.9 3.5-5.1 mmol/L Chloride Level 110 H 98-107 mmol/L Carbon Dioxide Level 21 20-31 mmol/L Anion Gap 13 5-15 Blood Urea Nitrogen 23 9-23 mg/dL Creatinine 1.12 H 0.550-1.02 mg/dL Glomerular Filtration Rate Calc 55 >90 mL/min BUN/Creatinine Ratio 20.5 H 10.0-20.0 Serum Glucose 96 74-106 mg/dL Calcium Level 9.9 8.7-10.4 mg/dL Magnesium Level 2.2 1.6-2.6 mg/dL Total Bilirubin 0.7 0.2-1.0 mg/dL Aspartate Amino Transferase (AST) 20 13-40 U/L Alanine Aminotransferase (ALT) 24 7-40 U/L Alkaline Phosphatase 81 46-116 U/L Total Protein 7.5 5.7-8.2 g/dL Albumin 4.7 3.2-4.8 g/dL Lipase 31 12-53 U/L Test 09/16/24 20:23 Range/Units POC Glucose 88 70-106 mg/dl PATIENT: CLEMENTE VERMA ACCT: [id number] UNIT: [id number] : 1960 LOC: ER ROOM / BED: / AGE / SEX: 64 / F ADM STATUS: REG ER SERVICE 22 ORDERING PHYSICIAN: DAVY TAVERA DO PROCEDURE(s): ABPL - CT AB PEL WO CON-NO ORAL OR IV REASON: suprapubic pain. ORDER NUMBER(s): [id number], ACCESSION NUMBER(s): [id number] Exam: CT CT AB PEL WO CON-NO ORAL OR IV History: suprapubic pain. Comparison Study: CT CT AB PEL WO CON-NO ORAL OR IV on DOS: 04/19/24 Technique: Multidetector spiral CT of the abdomen was performed from lung bases to pubic symphysis. Imaging was performed without IV contrast. Axial, coronal and sagittal multiplanar reformats were obtained from the axial data set by the technologist. Radiation Dose: 1. Abdomen/Pelvis: CTDIvol mGy, DLP mGy*cm. Findings: Evaluation of solid organs is limited due to lack of intravenous contrast use. Lung Bases: No abnormality demonstrated. Liver: Liver is normal in size. No focal lesions noted. Gallbladder and Biliary Tree: No abnormality demonstrated. Spleen: No abnormality demonstrated. Pancreas: No abnormality demonstrated. Adrenal Glands: No abnormality demonstrated. Kidneys: No abnormality demonstrated. 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 Small cyst noted in the upper pole of the left kidney. No hydroureteronephrosis. Bladder: Non distended. Suprapubic catheter present. Bowel: Stomach appears grossly unremarkable. No abnormally dilated or thick- walled loops of large or small bowel noted. Mild left-sided colonic diverticulosis without evidence of acute diverticulitis. Moderate amount of stool present in the large bowel. Appendix appears unremarkable. Ascites: Absent Lymphadenopathy: No evidence of lymphadenopathy. Abdominal Wall and Mesentery: Unremarkable. Vasculature: Unremarkable given lack of intravenous contrast. Pelvic Organs: Enlarged uterus containing fibroids. Musculoskeletal: No bony lesions or fracture. IMPRESSION: No acute abdominal or pelvic findings. ORDERING PHYSICIAN: DAVY TAVERA DO PROCEDURE(s): PELUS - PELVIC REASON: suprapubic pain ORDER NUMBER(s): [id number], ACCESSION NUMBER(s): [id number] INDICATION: suprapubic pain TECHNIQUE: Multiple real-time grayscale transabdominal sonographic images along with color and duplex Doppler of the uterus and ovaries were obtained. COMPARISON: None FINDINGS/IMPRESSION: Uterus demonstrates evidence of dilated fibroids. Endometrium is not adequately visualized/assessed. Neither of the ovaries could be identified. No evidence of pelvic mass or free fluid/fluid collection. ORDERING PHYSICIAN: DAVY TAVERA DO PROCEDURE(s): CXRP - CHEST PORTABLE REASON: abd pain ORDER NUMBER(s): [id number], ACCESSION NUMBER(s): [id number] CHEST RADIOGRAPH Indication: abd pain Technique: Single frontal view of the chest was obtained COMPARISON: XY CHEST PORTABLE on DOS: 04/30/24 FINDINGS: Lines and Tubes: None Lungs: Clear Pleura: No effusion. No pneumothorax. Cardiomediastinal contours: Unremarkable IMPRESSION: No abnormality demonstrated. Assessment/Plan Assessment/Plan Suprapubic abdominal pain Complicated urinary tract infection Chronic suprapubic catheter Plan 1. Admit to telemetry unit 2. Breathing treatment 3. Pain control management 4. IV antibiotic management 5. Management of fluids and electrolytes 6. Consultation for hospitalist 7. Diagnostic test abdomen/pelvis CT 8. DVT prophylaxis-on Eliquis 9. Repeat labs CBC, CMP in a.m. 10. Home medication reviewed and reconciled 11. Continue with current medical management 12. Treatment plan discussed with patient and RN. Patient verbalized understanding. Plan discussed with: Patient, Other (RN) My Orders Orders - OPHELIA MOCK DNP Procedure Category Date Status Time Piperacillin-Tazob PHA 09/17/24 In Process 3.375gm (Zosyn 3.375g 06:00 Allergies TOM 09/16/24 In Process 22:22 Code Status CODE 09/16/24 Transmitted 22:22 Sodium Chloride Lock PHA 09/17/24 In Process (Saline Lock Ns) 06:00 Oxygen Per Hour RT 09/16/24 Transmitted 22:22 Hydrocodone-Acet PHA 09/16/24 In Process 5/325mg Tab ([place] 22:30 Ondansetron Hcl PHA 09/16/24 In Process (Zofran) 22:30 Docusate Sodium PHA 09/16/24 In Process Capsule (Colace 22:30 Complete Blood Count LAB 09/17/24 Verified 04:00 Comprehensive LAB 09/17/24 Verified Metabolic Panel 04:00 Cardiac DIET 09/17/24 Transmitted Diet-2gna,Lofat,Lochol Breakfast Condition: Serious TOM 09/16/24 In Process 22:22 Acetaminophen Tablet PHA 09/16/24 In Process (Tylenol Tablet) 22:30 Bedrest With Bathroom TOM 09/16/24 In Process Privileg 22:22 Morphine Sulfate PHA 09/16/24 In Process Injection 22:30 Sequential TOM 09/16/24 In Process Compression Device Admit ADMIT 09/16/24 Transmitted 22:56 Nitroglycerin PHA 09/16/24 Transmitted Sublingual (Ntrostat 23:00 Morphine Sulfate PHA 09/16/24 Transmitted Injection 23:00 Stat Ekg For Chest TOM 09/16/24 Transmitted Pain 22:56 Notify Md Of Changes TOM 09/16/24 Transmitted From Base 22:56 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[employer] [place] 09/16/24 Transmitted 24 Hours 22:56 Emergency Dysrhythmia TOM 09/16/24 Transmitted Protocol 22:56 Rhythm Strips Once TOM 09/16/24 Transmitted Every Shift 22:56 Oxygen By Nasal RT 09/16/24 Transmitted Cannula 22:56 Trazodone Hcl PHA 09/17/24 Transmitted (Desyrel) 22:00 Albuterol Medneb PHA 09/16/24 Transmitted (Ventolin Medneb) 23:00 Risperidone Tablet PHA 09/17/24 Transmitted (Risperdal Tablet) 07:00 Risperidone Tablet PHA 09/17/24 Transmitted (Risperdal Tablet) 18:00 Levothyroxine Tablet PHA 09/17/24 Transmitted (Synthroid Tablet) 06:00 Apixaban (Eliquis) PHA 09/17/24 Transmitted 10:00 Problem List: (1) Suprapubic abdominal pain (2) Complicated urinary tract infection (3) Chronic suprapubic catheter Date of Service: September 16, 2024 Billing Provider: OPHELIA MOCK DNP Common Visit Codes: [id number] INP/OBS CARE (HIGH) OPHELIA MOCK DNP September 16, 2024 23:05
[2024-09-16 23:18] VITALS: BP 128/72; PULSE 93; RESP 20; O2SAT 98
[2024-09-16 23:23] VITALS: O2SAT 98
[2024-09-16 23:26] VITALS: PULSE 93; RESP 28; O2SAT 98
--- NOTE | 2024-09-16 23:30 | DVH ---
INDICATION: suprapubic pain TECHNIQUE: Multiple real-time grayscale transabdominal sonographic images along with color and duplex Doppler of the uterus and ovaries were obtained. COMPARISON: None FINDINGS / IMPRESSION: Uterus demonstrates evidence of dilated fibroids. Endometrium is not adequately visualized/assessed. Neither of the ovaries could be identified. No evidence of pelvic mass or free fluid/fluid collectio n.
[2024-09-17] VITALS (13 sets, daily range): BP systolic 99–126; BP diastolic 61–75; PULSE 85–101; RESP 16–20; TEMP 97.4–98.5; O2SAT 97–100
[2024-09-17] MEDS: MORPHINE SULFATE INJ 2 MG/ml SYRG IV PRN (02:49)
[2024-09-17] MEDS: ONDANSETRON HCL 4 MG/2 ML VIAL IV PRN (03:44)
[2024-09-17] MEDS: LEVOTHYROXINE SODIUM 25 MCG TAB PO SCH (06:00)
[2024-09-17] MEDS: SODIUM CHLOR 0.9% PF (SALINE LOCK) 10ML VIAL/SYR IV SCH (06:00)
[2024-09-17] MEDS: PIPERACILLIN-TAZOB 3.375GM 100 ML IV SCH (06:00)
--- NOTE | 2024-09-17 06:07 | ECG ---
[facility] [place] 2024-09-16 Test Time: 20:40:35 Pat Name: CLEMENTE VERMA Department: ER Room: 0284T A Gender: F [employer] Operator: GEORGIE : 1960 Requested By: DAVY TAVERA Order Number: [id number] Reading MD: Owen De Leon Measurements Intervals [place] Rate: 118 P: 42 AR: 127 QRS: 0 QRSD: 186 T: 11 QT: 345 QTc: 484 Interpretive Statements Sinus tachycardia Ventricular premature complex IVCD, consider atypical LBBB Artifact in lead(s) I,II,III,aVR,aVL,aVF,V1,V2,V3,V4,V5,V6 and baseline wander in lead(s) V3,V5,V6 Electronically Signed On 09-20-2024 11:59:12 PDT by Owen De Leon Please click the below link to view image of tracing.
[2024-09-17] MEDS: risperiDONE 1 MG TAB PO SCH ×2 (07:00→17:35)
[2024-09-17 07:02] LABS: Alanine Aminotransferase 21 U/L (7-40); Albumin 4.1 g/dL (3.2-4.8); Alkaline Phosphatase 70 U/L (46-116); Anion Gap 10 (5-15); Aspartate Aminotransferase 22 U/L (13-40); BUN/Creatinine Ratio 22.6 (10.0-20.0); Blood Urea Nitrogen 21 mg/dL (9-23); Calcium 9.5 mg/dL (8.7-10.4); Carbon Dioxide 22 mmol/L (20-31); Total Protein 6.4 g/dL (5.7-8.2)
[2024-09-17 07:03] LABS: Bilirubin, Total 0.6 mg/dL (0.2-1.0)
[2024-09-17 07:11] LABS: Chloride 115 mmol/L (98-107); Glucose 111 mg/dL (74-106); Sodium 147 mmol/L (136-145)
[2024-09-17 07:47] LABS: Basophils # (auto) 0 10 ^3/uL (0-0.2); Basophils % (auto) 0.7 % (0.0-2.0); Eosinophils # (auto) 0.1 10 ^3/uL (0-0.8); Hematocrit 45.3 % (36.0-46.0); Hemoglobin 15.7 g/dL (12.2-16.2); Lymphocytes # (auto) 2.2 10 ^3/uL (0.4-5.4); Lymphocytes % (auto) 35.5 % (10.0-50.0); Mean Corpuscular Hemoglobin 29.6 pg (28.0-32.0); Mean Corpuscular Hgb Conc. 34.6 g/dL (32.0-36.0); Mean Corpuscular Volume 85.5 fL (80.0-100.0); Monocytes # (auto) 0.7 10 ^3/uL (0-1.3); Monocytes % (auto) 10.5 % (0.0-12.0); Neutrophils # (auto) 3.3 10 ^3/uL (1.6-8.6); Neutrophils % (auto) 52.3 % (37.0-80.0); Nucleated Red Blood Cells % 0.1 %; Platelet Count (auto) 144 10^3/uL (140-450); White Blood Cell 6.3 10^3/uL (4.4-10.8)
[2024-09-17] MEDS: APIXABAN 5 MG TAB PO SCH (10:00)
[2024-09-17] MEDS: HYDROcodone-ACET 5/325MG TAB PO PRN (20:13)
[2024-09-17] MEDS: traZODone HCL 50 MG TAB PO SCH (22:25)
[2024-09-18] VITALS (9 sets, daily range): BP systolic 104–133; BP diastolic 57–66; PULSE 71–91; RESP 16–32; TEMP 97–98.9; O2SAT 90–100
[2024-09-18 06:57] LABS: Anion Gap 8 (5-15); Carbon Dioxide 26 mmol/L (20-31); Chloride 108 mmol/L (98-107); Potassium 3.5 mmol/L (3.5-5.1); Sodium 142 mmol/L (136-145)
[2024-09-18 06:59] LABS: Calcium 9.4 mg/dL (8.7-10.4)
[2024-09-18 07:03] LABS: BUN/Creatinine Ratio 18.4 (10.0-20.0); Blood Urea Nitrogen 16 mg/dL (9-23)
[2024-09-18 07:10] LABS: Glucose 131 mg/dL (74-106)
--- NOTE | 2024-09-18 07:14 | DVHPN2 ---
Reviewed: Care Plan, H&P, Labs, Medications, Previous Orders, Radiology Changes from previous H/P or p: No Changes General: Per HPI Eyes: No Pain, No Vision change, No Conjunctivae inflammation, No Eyelid inflammation, No Other, No Redness ENT: No Ear pain, No Ear discharge, No Nose pain, No Nose discharge, No Nose congestion, No Mouth pain, No Mouth swelling, No Throat pain, No Throat swelling, No Other Cardiovascular: No Chest Pain, No Palpitations, No Orthopnea, No Paroxysmal Noc. Dyspnea, No Edema, No Lt Headedness, No Other Respiratory: No Cough, No Dry, No Shortness of breath, No SOB with excertion, No Wheezing, No Hemoptysis, No Pleuritic Pain, No Sputum, No Other Gastrointestinal: No Nausea, No Vomiting; Abdominal Pain (Suprapubic); No Diarrhea, No Constipation, No Melena, No Hematochezia, No Other Genitourinary: No Dysuria, No Frequency, No Incontinence, No Hematuria, No Retention; Other (V[place] catheter in place) Musculoskeletal: No other, No neck pain, No shoulder pain, No arm pain, No back pain, No hand pain, No leg pain, No foot pain Skin: No Rash, No Lesions, No Jaundice, No Bruising, No Other Objective Vitals Vital Signs Date Time Temp Pulse Resp B/P (MAP) Pulse Ox O2 Delivery O2 Flow Rate FiO2 09/18/24 05:00 97.2 80 17 133/63 (86) 95 97.2 09/17/24 21:04 Nasal Cannula* 2 28 Intake/Output Intake and Output 09/18/24 07:00 Intake Total 700 ml Output Total 1875 ml Balance -1175 ml Intake Oral 600 ml IV Total 100 ml Output Urine Total 1875 ml General Appearance: Alert, Oriented X3, Cooperative Cardiovascular: Regular rate, Normal S1, Normal S2 Abdomen: Normal bowel sounds, Soft Medications Current Medications Medications Dose Ordered Sig/Mindy Route Start Time Stop Time Status Last Admin Dose Admin Piperacillin Sod/ Tazobactam Sod 100 ml @ 25 mls/hr Q8HR IV 09/17/24 06:00 09/18/24 06:29 25 MLS/HR Sodium Chloride 10 ml Q8HR IV 09/17/24 06:00 09/18/24 06:30 10 ML Acetaminophen/ Hydrocodone Bitart 1 tab Q4HP PRN PO 09/16/24 22:30 09/18/24 06:37 1 TAB Ondansetron HCl 4 mg Q4HP PRN IV 09/16/24 22:30 09/17/24 15:32 4 MG Docusate Sodium 100 mg BIDPRN PRN PO 09/16/24 22:30 Acetaminophen 650 mg Q6HP PRN PO 09/16/24 22:30 Morphine Sulfate 2 mg Q4HPRN PRN IV 09/16/24 22:30 09/17/24 22:33 2 MG Nitroglycerin 0.4 mg Q5MINP PRN SL 09/16/24 23:00 Morphine Sulfate 2 mg Q30M PRN IV 09/16/24 23:00 Trazodone HCl 50 mg HS PO 09/17/24 22:00 09/17/24 22:25 50 MG Albuterol 2.5 mg Q4HPRN PRN NEB 09/16/24 23:00 Cancel Risperidone 1 mg QAM PO 09/17/24 07:00 09/18/24 06:32 1 MG Risperidone 2 mg QPM PO 09/17/24 18:00 09/17/24 17:35 2 MG Levothyroxine Sodium 25 mcg QAM@0600 PO 09/17/24 06:00 09/18/24 06:29 25 MCG Apixaban 5 mg BID PO 09/17/24 10:00 09/17/24 22:25 5 MG Laboratory Results Laboratory Tests 09/17/24 06:28 09/18/24 06:07 Chemistry Test 09/18/24 06:07 Calcium Level 9.4 mg/dL (8.7-10.4) Urinalysis Test 09/16/24 22:20 Urine Color Light-orange (Yellow) Urine Clarity Ex.turbid (Clear) Urine pH 5.5 (5.0-9.0) Urine Specific [place] 1.025 (1.001-1.035) Urine Protein 1+ (Negative) H Urine Ketones Trace (Negative) Urine Blood 2+ /uL (Negative) H Urine Nitrite 2+ (Negative) H Urine Bilirubin Negative (Negative) Urine Urobilinogen Normal mg/dL (Negative) Urine Leukocyte Esterase 3+ /uL (Negative) Urine RBC 88 /hpf (0 - 4) Urine WBC Clumps Present /hpf (None Seen) Urine Microscopic WBC 567 /HPF (0-5) H Urine Squamous Epithelial Cells Few /hpf (<5) Urine Amorphous Crystals Few /hpf (None Seen) Urine Bacteria Few /hpf (None Seen) H Urine Mucus Few (None Seen) Urine Glucose Normal mg/dL (Normal) Microbiology Microbiology Date/Time Source Procedure Growth Status 09/16/24 22:20 Voided Urine Urine Culture - Preliminary Resulted 09/16/24 20:44 Blood Blood Culture - Preliminary NO GROWTH AFTER 24 HOURS OF INCUBATION. Resulted Labs and/or images reviewed: Labs reviewed by me, Image(s) reviewed by me Assessment/Plan Assessment/Plan The patient is a 64-year-old female with past medical history of bladder dysfunction status post suprapubic catheter, spinal cysts, depression, bipolar disorder, anxiety, and pulmonary embolism presented to [facility] ED with complaint of suprapubic pain. Patient reports she has been on antibiotics for UTI for the past 1 week, but is not getting better, has been going on with severe pain. Patient was seen and evaluated in the ED, laboratory data shows WBC 10.5, platelets 224, sodium 144, potassium 3.9, BUN 23, creatinine 1.12, glucose 96, lactic acid 3.4, troponin 3, lipase 31, blood pressure 128/72, heart rate 93, temperature 98.8 F, O2 saturation 99% on room air. Urinalysis positive for urinary tract infection. Patient was started on IV antibiotic regimen Zosyn, please see medication orders section in the computer. On my assessment, patient denied chest pain, no headache, no dizziness, no diaphoresis, no shortness of breaths, no nausea, no vomiting, no fever, no chills. Patient was admitted for further evaluation and medical management. Suprapubic abdominal pain Complicated urinary tract infection Chronic suprapubic catheter 09/17/2024: continue with zosyn urine culture pending Plan discussed with: Patient Date of Service: September 17, 2024 Billing Provider: ROBBIN CORRIGAN DO Common Visit Codes: [id number] INP/OBS CARE(HIGH) ROBBIN CORRIGAN DO September 18, 2024 07:14
--- NOTE | 2024-09-18 19:38 | DVHPN2 ---
Subjective in bed resting Reviewed: Care Plan, H&P, Labs, Medications, Previous Orders, Radiology Changes from previous H/P or p: No Changes General: Per HPI Eyes: No Pain, No Vision change, No Conjunctivae inflammation, No Eyelid inflammation, No Other, No Redness ENT: No Ear pain, No Ear discharge, No Nose pain, No Nose discharge, No Nose congestion, No Mouth pain, No Mouth swelling, No Throat pain, No Throat swelling, No Other Cardiovascular: No Chest Pain, No Palpitations, No Orthopnea, No Paroxysmal Noc. Dyspnea, No Edema, No Lt Headedness, No Other Respiratory: No Cough, No Dry, No Shortness of breath, No SOB with excertion, No Wheezing, No Hemoptysis, No Pleuritic Pain, No Sputum, No Other Gastrointestinal: No Nausea, No Vomiting; Abdominal Pain (Suprapubic); No Diarrhea, No Constipation, No Melena, No Hematochezia, No Other Genitourinary: No Dysuria, No Frequency, No Incontinence, No Hematuria, No Retention; Other ([place] catheter in place) Musculoskeletal: No other, No neck pain, No shoulder pain, No arm pain, No back pain, No hand pain, No leg pain, No foot pain Skin: No Rash, No Lesions, No Jaundice, No Bruising, No Other Objective Vitals Vital Signs Date Time Temp Pulse Resp B/P (MAP) Pulse Ox O2 Delivery O2 Flow Rate FiO2 09/18/24 17:00 97.5 88 18 121/63 (82) 99 97.5 09/18/24 10:00 Nasal Cannula 2.0 09/18/24 10:00 28 Intake/Output Intake and Output 09/18/24 07:00 Intake Total 700 ml Output Total 1875 ml Balance -1175 ml Intake Oral 600 ml IV Total 100 ml Output Urine Total 1875 ml General Appearance: Alert, Oriented X3, Cooperative Cardiovascular: Regular rate, Normal S1, Normal S2 Abdomen: Normal bowel sounds, Soft Medications Current Medications Medications Dose Ordered Sig/Mindy Route Start Time Stop Time Status Last Admin Dose Admin Piperacillin Sod/ Tazobactam Sod 100 ml @ 25 mls/hr Q8HR IV 09/17/24 06:00 09/18/24 14:25 25 MLS/HR Sodium Chloride 10 ml Q8HR IV 09/17/24 06:00 09/18/24 14:25 10 ML Acetaminophen/ Hydrocodone Bitart 1 tab Q4HP PRN PO 09/16/24 22:30 09/18/24 06:37 1 TAB Ondansetron HCl 4 mg Q4HP PRN IV 09/16/24 22:30 09/18/24 14:40 4 MG Docusate Sodium 100 mg BIDPRN PRN PO 09/16/24 22:30 Acetaminophen 650 mg Q6HP PRN PO 09/16/24 22:30 Morphine Sulfate 2 mg Q4HPRN PRN IV 09/16/24 22:30 09/18/24 09:40 2 MG Nitroglycerin 0.4 mg Q5MINP PRN SL 09/16/24 23:00 Morphine Sulfate 2 mg Q30M PRN IV 09/16/24 23:00 Trazodone HCl 50 mg HS PO 09/17/24 22:00 09/17/24 22:25 50 MG Albuterol 2.5 mg Q4HPRN PRN NEB 09/16/24 23:00 Cancel Risperidone 1 mg QAM PO 09/17/24 07:00 09/18/24 06:32 1 MG Risperidone 2 mg QPM PO 09/17/24 18:00 09/18/24 18:11 2 MG Levothyroxine Sodium 25 mcg QAM@0600 PO 09/17/24 06:00 09/18/24 06:29 25 MCG Apixaban 5 mg BID PO 09/17/24 10:00 09/18/24 09:26 5 MG Laboratory Results Laboratory Tests 09/17/24 06:28 09/18/24 06:07 Chemistry Test 09/18/24 06:07 Calcium Level 9.4 mg/dL (8.7-10.4) Urinalysis Test 09/16/24 22:20 Urine Color Light-orange (Yellow) Urine Clarity Ex.turbid (Clear) Urine pH 5.5 (5.0-9.0) Urine Specific [place] 1.025 (1.001-1.035) Urine Protein 1+ (Negative) H Urine Ketones Trace (Negative) Urine Blood 2+ /uL (Negative) H Urine Nitrite 2+ (Negative) H Urine Bilirubin Negative (Negative) Urine Urobilinogen Normal mg/dL (Negative) Urine Leukocyte Esterase 3+ /uL (Negative) Urine RBC 88 /hpf (0 - 4) Urine WBC Clumps Present /hpf (None Seen) Urine Microscopic WBC 567 /HPF (0-5) H Urine Squamous Epithelial Cells Few /hpf (<5) Urine Amorphous Crystals Few /hpf (None Seen) Urine Bacteria Few /hpf (None Seen) H Urine Mucus Few (None Seen) Urine Glucose Normal mg/dL (Normal) Microbiology Microbiology Date/Time Source Procedure Growth Status 09/16/24 22:20 Voided Urine Urine Culture - Preliminary Resulted 09/16/24 20:44 Blood Blood Culture - Preliminary NO GROWTH AFTER 24 HOURS OF INCUBATION. Resulted Assessment/Plan Assessment/Plan The patient is a 64-year-old female with past medical history of bladder dysfunction status post suprapubic catheter, spinal cysts, depression, bipolar disorder, anxiety, and pulmonary embolism presented to [facility] ED with complaint of suprapubic pain. Patient reports she has been on antibiotics for UTI for the past 1 week, but is not getting better, has been going on with severe pain. Patient was seen and evaluated in the ED, laboratory data shows WBC 10.5, platelets 224, sodium 144, potassium 3.9, BUN 23, creatinine 1.12, glucose 96, lactic acid 3.4, troponin 3, lipase 31, blood pressure 128/72, heart rate 93, temperature 98.8 F, O2 saturation 99% on room air. Urinalysis positive for urinary tract infection. Patient was started on IV antibiotic regimen Zosyn, please see medication orders section in the computer. On my assessment, patient denied chest pain, no headache, no dizziness, no diaphoresis, no shortness of breaths, no nausea, no vomiting, no fever, no chills. Patient was admitted for further evaluation and medical management. Suprapubic abdominal pain Complicated urinary tract infection Chronic suprapubic catheter 09/17/2024: continue with zosyn urine culture pending 09/18 pending urine cx, continue IV zosyn Plan discussed with: Patient Date of Service: September 18, 2024 Billing Provider: ELIZABETH OLVERA MD Common Visit Codes: [id number] INP/OBS CARE(HIGH) ELIZABETH OLVERA MD September 18, 2024 19:37
[2024-09-19] VITALS (7 sets, daily range): BP systolic 108–137; BP diastolic 52–70; PULSE 72–92; RESP 17–19; TEMP 97.8–98.2; O2SAT 98–100
[2024-09-19] MEDS: DOCUSATE SOD 100 MG CAP PO PRN (06:30)
[2024-09-19 07:16] LABS: Anion Gap 8 (5-15); Carbon Dioxide 26 mmol/L (20-31); Potassium 4.1 mmol/L (3.5-5.1); Sodium 142 mmol/L (136-145)
[2024-09-19 07:17] LABS: Calcium 9.4 mg/dL (8.7-10.4)
[2024-09-19 07:21] LABS: Glucose 93 mg/dL (74-106)
[2024-09-19 07:22] LABS: BUN/Creatinine Ratio 11.8 (10.0-20.0); Blood Urea Nitrogen 10 mg/dL (9-23)
[2024-09-19 07:24] LABS: Chloride 108 mmol/L (98-107)
[2024-09-19] MEDS ORDERED: BACDST PO (17:48)
--- NOTE | 2024-09-21 13:42 | ECG ---
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
--- NOTE | 2024-09-21 13:42 | ECG ---
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
--- NOTE | 2024-09-22 19:59 | DVHDS2 ---
Discharge Summary Date of Admission September 16, 2024 at 22:56 Date of Discharge: September 19, 2024 Labs/Diagnostic Data: Laboratory Results Test 09/19/24 06:17 09/17/24 06:28 09/16/24 22:46 09/16/24 22:20 Sodium Level 142 mmol/L (136-145) Potassium Level 4.1 mmol/L (3.5-5.1) Chloride Level 108 mmol/L (98-107) Carbon Dioxide Level 26 mmol/L (20-31) Anion Gap 8 (5-15) Blood Urea Nitrogen 10 mg/dL (9-23) Creatinine 0.85 mg/dL (0.550-1.02) Glomerular Filtration Rate Calc 76 mL/min (>90) BUN/Creatinine Ratio 11.8 (10.0-20.0) Serum Glucose 93 mg/dL (74-106) Calcium Level 9.4 mg/dL (8.7-10.4) White Blood Count 6.3 10^3/uL (4.4-10.8) Red Blood Count 5.30 10^6/uL (4.0-5.20) Hemoglobin 15.7 g/dL (12.2-16.2) Hematocrit 45.3 % (36.0-46.0) Mean Corpuscular Volume 85.5 fL (80.0-100.0) Mean Corpuscular Hemoglobin 29.6 pg (28.0-32.0) Mean Corpuscular Hemoglobin Concent 34.6 g/dL (32.0-36.0) Red Cell Distribution Width 15.0 % (11.8-14.3) Platelet Count 144 10^3/uL (140-450) Mean Platelet Volume 8.1 fL (6.9-10.8) Neutrophils (%) (Auto) 52.3 % (37.0-80.0) Lymphocytes (%) (Auto) 35.5 % (10.0-50.0) Monocytes (%) (Auto) 10.5 % (0.0-12.0) Eosinophils (%) (Auto) 1.0 % (0.0-7.0) Basophils (%) (Auto) 0.7 % (0.0-2.0) Neutrophils # (Auto) 3.3 10 ^3/uL (1.6-8.6) Lymphocytes # (Auto) 2.2 10 ^3/uL (0.4-5.4) Monocytes # (Auto) 0.7 10 ^3/uL (0-1.3) Eosinophils # (Auto) 0.1 10 ^3/uL (0-0.8) Basophils # (Auto) 0 10 ^3/uL (0-0.2) Nucleated Red Blood Cells 0.1 % Total Bilirubin 0.6 mg/dL (0.2-1.0) Aspartate Amino Transferase (AST) 22 U/L (13-40) Alanine Aminotransferase (ALT) 21 U/L (7-40) Alkaline Phosphatase 70 U/L (46-116) Total Protein 6.4 g/dL (5.7-8.2) Albumin 4.1 g/dL (3.2-4.8) Lactic Acid Level 1.4 mmol/L (0.4-2.0) Urine Color Light-orange (Yellow) Urine Clarity Ex.turbid (Clear) Urine pH 5.5 (5.0-9.0) Urine Specific [place] 1.025 (1.001-1.035) Urine Protein 1+ (Negative) Urine Ketones Trace (Negative) Urine Blood 2+ /uL (Negative) Urine Nitrite 2+ (Negative) Urine Bilirubin Negative (Negative) Urine Urobilinogen Normal mg/dL (Negative) Urine Leukocyte Esterase 3+ /uL (Negative) Urine RBC 88 /hpf (0 - 4) Urine WBC Clumps Present /hpf (None Seen) Urine Microscopic WBC 567 /HPF (0-5) Urine Squamous Epithelial Cells Few /hpf (<5) Urine Amorphous Crystals Few /hpf (None Seen) Urine Bacteria Few /hpf (None Seen) Urine Mucus Few (None Seen) Urine Glucose Normal mg/dL (Normal) Test 09/16/24 21:37 09/16/24 20:40 09/16/24 20:23 Troponin I High Sensitivity 3 ng/L (</=34) Differential Total Cells Counted 100.0 (100) Neutrophils % (Manual) 27 (37.0-80.0) Band Neutrophils % (Manual) 0 Lymphocytes % (Manual) 58 (10.0-50.0) Monocytes % (Manual) 11 (0-12) Eosinophils % (Manual) 0 (0-7) Basophils % (Manual) 0 (0.0-2.0) Metamyelocytes % (manual) 0 Myelocytes % (Manual) 0 Promyelocytes % (Manual) 0 Blast Cells % (Manual) 0 Reactive Lymphocytes 4 Platelet Estimate Adequate Magnesium Level 2.2 mg/dL (1.6-2.6) Lipase 31 U/L (12-53) POC Glucose 88 mg/dl (70-106) Other Laboratory Tests 09/19/24 06:17 09/17/24 06:28 Brief Hx & Hospital Course: The patient is a 64-year-old female with past medical history of bladder dysfunction status post suprapubic catheter, spinal cysts, depression, bipolar disorder, anxiety, and pulmonary embolism presented to [facility] ED with complaint of suprapubic pain. Patient reports she has been on antibiotics for UTI for the past 1 week, but is not getting better, has been going on with severe pain. Patient was seen and evaluated in the ED, laboratory data shows WBC 10.5, platelets 224, sodium 144, potassium 3.9, BUN 23, creatinine 1.12, glucose 96, lactic acid 3.4, troponin 3, lipase 31, blood pressure 128/72, heart rate 93, temperature 98.8 F, O2 saturation 99% on room air. Urinalysis positive for urinary tract infection. Patient was started on IV antibiotic regimen Zosyn, please see medication orders section in the computer. On my assessment, patient denied chest pain, no headache, no dizziness, no diaphoresis, no shortness of breaths, no nausea, no vomiting, no fever, no chills. Patient was admitted for further evaluation and medical management. Admitted with UTI and symptoms improved, was discharged on oral abx. Condition at Discharge: Good Final Diagnosis/Problems List UTI Discharge Disposition: Home Discharge Instruct/Medications Diet: Regular Activity: No Restrictions, As Tolerated Follow Up/Referral: PCP in 7 days Medications: bactrim Discharge Statement: "Patient was advised to return to the ER or call 911 if any headaches, dizziness, shortness of breath, chest pain, abdominal pain, bleeding, fevers, or worsening of medical condition. Patient was counseled about treatment plan, medications, possible side effects, patientverbalized understanding. All questions were answered to the best of my ability. This discharge took greater then 30 minutes in planning, reviewing documentation, counseling the patient, and discussing with other team members." ASSESSMENT ASSESSMENT Assessment UTI Date of Service: September 19, 2024 Billing Provider: ELIZABETH OLVERA MD Common Visit Codes: 76470-VYQ/OBS DISCH DAY >30min ELIZABETH OLVERA MD September 22, 2024 19:59
== END 2024-09-19 19:09 | disposition home or self-care (01) | DRG 466 ==
LOC: ER 19:34 → OVERFLOW 22:56 → TELE-WESTW 23:56
PROVIDERS: ADMIT Internal Medicine; ATTEND Internal Medicine
DX: T83.518A Infection and inflammatory reaction due to other urinary catheter, initial encounter (principal); Z93.59 Other cystostomy status; F31.9 Bipolar disorder, unspecified; F41.9 Anxiety disorder, unspecified; Z86.711 Personal history of pulmonary embolism; Z79.899 Other long term (current) drug therapy
CPT/HCPCS: 36415; 71045; 74176; 76856; 80048; 80053; 81001; 82962; 83605; 83690; 83735; 84484; 85007; 85025; 85027; 87040; 87086; 93005; 94640; 96365; G0378; J2405; J2543

== ENCOUNTER 2024-09-26 20:02 | Inpatient (IN) | payer MEDICAID ==
[~2024-09-26] VITALS: Ht 157.5 cm; Wt 80.7 kg
[~2024-09-26 20:02] MED LIST changes: -AZIT500T66 PO; +BACDST PO; -LEVO750T40 PO
[2024-09-26] MEDS ORDERED: VANCOMYCIN PER PHARMACY 0 MG IV SCH ×2 (21:00→23:00)
--- NOTE | 2024-09-26 21:09 | ED.PDOC ---
General HPI Comments 64y F who presents to the ED for chief complaint of suprapubic pain. Pt states she has been having associated pelvic pain with noted dysuria intermittently that started earlier this afternoon. Pt states she has suprapubic catheter in place and also does occasionally leak urine from her urethra. She notes she has been leaking urine from her urethra more since the dysuria started. Pt now in the ED, in noted distress, with associated symptoms of diaphoresis, chills, nausea and vomiting. Pt states she otherwise had suprapubic catheter replaced on August 03 by home health nurse. Per prior notes, pt was admitted for UTI and discharged on 09/22 after course of IV antibiotic Zosyn. Patient states she has been taking p.o. Bactrim without relief. Pt in the ED, has noted temp of BP 155/81, heart rate of 118, rr 24 and 02 sat of 97% on room air. Pt otherwise denies any other symptoms at this time. Time Seen by MD: 21:07 Primary Care Provider: ERICH Carson notes: Medications, Allergies Allergies: Coded Allergies: NO KNOWN ALLERGIES (Unverified , 05/02/24) Home Meds Active Scripts Sulfamethoxazole W/Trimethopri (Bactrim Ds Tablet) 1 Tab Tb, 1 TAB PO BID for 7 Days, #14 TAB Prov:ELIZABETH OLVERA MD 09/19/24 Albuterol Sulfate (VENTOLIN MDI) 90 Mcg Ih, 90 MCG IN Q4HR PRN, #1 INH Prov:LEENA MANZANARES MD 05/06/24 Apixaban Base (ELIQUIS) 5 Mg Tab, 10 MG PO BID for 7 Days, #14 TAB 10MG BID X 7 DAYS THEN 5MG PO BID FOR AT LEAST 6 MONTHS FOR DVT/PE TREATMENT Prov:LEENA MANZANARES MD 05/06/24 Apixaban Base (ELIQUIS) 5 Mg Tab, 5 MG PO BID, #180 TAB Prov:LEENA MANZANARES MD 05/06/24 Reported Medications Risperidone (Risperdal) 2 Mg Tab, 2 MG PO QPM, TAB 04/16/24 Hydrocodone-Acetaminophen (Hydrocodone Bitartrate/AC 10-325 mg) 1 Tab Tab, 1 TAB PO TIDP PRN for severe pain, TAB 05/03/23 Risperidone (Risperidone) 1 Mg Tab, 1 MG PO QAM, TAB 05/03/23 Cyclobenzaprine HCl (Cyclobenzaprine Hydrochlo) 10 Mg Tab, 1 TAB PO BID 06/07/22 Trazodone Hcl (Trazodone Hcl) 100 Mg Tab, 1 TAB PO HS 06/07/22 Levothyroxine Sodium (Levothyroxine Sodium) 25 Mcg Tab, 25 MCG PO QAM, MCG 07/18/20 Information Source: Patient Mode of Arrival: Ambulatory Brought in by: self Past Medical History PAST MEDICAL HISTORY: Anxiety, Depression, Thyroid, UTI'S Surgical History (Other): Suprapubic catheter [employer] History: No Pertinent [employer] History Family History Family History: Reviewed,noncontributory to illness, No family hx of Cancer, No family hx of DM, No family hx of Heart flores, No family hx of HTN, No family hx ofKidney flores, No family hx of Liver flores, No family hx of Lung flores, No family hx of Stroke Social History Smoker: Non-Smoker Alcohol: Denies ETOH Use Drugs: Denies Drug Use Lives In: Home Constitutional: denies: chills, diaphoresis, fatigue, fever, malaise, sweats, weakness, others EENTM: denies: blurred vision, double vision, ear bleeding, ear discharge, ear drainage, ear pain, ear ringing, eye pain, eye redness, hearing loss, mouth pain, mouth swelling, nasal discharge, nose bleeding, nose congestion, nose pain, photophobia, tearing, throat pain, throat swelling, voice changes, others Respiratory: denies: cough, hemoptysis, orthopnea, SOB at rest, shortness of breath, SOB with excertion, stridor, wheezing, others Cardiovascular: denies: chest pain, dizzy spells, diaphoresis, Dyspnea on exertion, edema, irregular heart beat, left arm pain, lightheadedness, palpitations, PND, syncope, others Gastrointestinal: denies: abdomen distended, abdominal pain, blood streaked bowels, constipated, diarrhea, dysphagia, difficulty swallowing, hematemesis, melena, nausea, poor appetite, poor fluid intake, rectal bleeding, rectal pain, vomiting, others Genitourinary: reports: burning, dysuria, pain; denies: abnormal vagina bleeding, dyspareunia, flank pain, frequency, hematuria, incontinence, , vagina discharge, urgency, others Neurological: denies: dizziness, fainting, headache, left sided numbness, left sided weakness, numbness, paresthesia, pre-existing deficit, right sided numbness, right sided weakness, seizure, speech problems, tingling, tremors, weakness, others Musculoskeletal: denies: back pain, gout, joint pain, joint swelling, muscle pain, muscle stiffness, neck pain, others Integumetry: denies: bruises, change in color, change in hair/nails, dryness, laceration, lesions, lumps, rash, wounds, others Allergic/Immunocompromised: denies: Difficulty Healing, Frequent Infections, Hives, Itching, others Hematologic/Lymphatic: denies: anemia, blood clots, easy bleeding, easy bruising, swollen glands, others Endocrine: denies: excessive hunger, excessive sweating, excessive thirst, excessive urination, flushing, intolerance to cold, intolerance to heat, unexplained weight gain, unexplained weight loss, others Psychiatric: denies: anxiety, bipolar disorder, depression, hopeless, panic disorder, schizophrenia, sleepless, suicidal, others All Other Systems: Reviewed and Negative Physical Exam General Appearance: Mild Distress HEENT: Other (Pupils and face symmetric. Moist mucous membranes.) Neck: Full Range of Motion, Normal Inspection Respiratory: Lungs Clear, No Accessory Muscle Use, No Respiratory Distress, Normal Breath Sounds Cardiovascular: No Edema, No JVD, Tachycardia Breast Exam: Deferred Gastrointestinal: Soft, Suprapubic, Tenderness Genitalia: Deferred Pelvic: Deferred Rectal: Deferred Extremities: Normal inspection, Normal range of motion, Non-tender, No pedal edema Neurologic: Alert (Oriented x4), Normal Affect, Normal Mood, Other (Ambulatory with walker) Cerebellar Function: NOT DONE Reflexes: NOT DONE Skin: Dry, Normal Color, Warm, Other (Suprapubic catheter insertion site appears non erythematous. There is minimal thick yellow discharge from the insertion site.) Lymphatic: NOT DONE Was a procedure done? Was a procedure done?: No Differential Diagnosis Kidney stone (Female): Pyelonephritis, Renal failure Kidney stone (Male): N/A Penile/Scrotal: N/A Urinary Problem (Male): N/A Urinary Problem (Female): PID, Pyelonephritis, Urinary retention, UTI, Other (sepsis) X-Ray, Labs, Meds, VS Vital Signs Date Time Temp Pulse Resp B/P (MAP) Pulse Ox O2 Delivery O2 Flow Rate FiO2 09/26/24 21:53 120 20 145/83 09/26/24 20:56 98.0 118 24 155/81 (105) 97 98.0 Lab Test 09/26/24 20:59 Range/Units White Blood Count 11.2 H 4.4-10.8 10^3/uL Red Blood Count 5.92 H 4.0-5.20 10^6/uL Hemoglobin 17.5 H 12.2-16.2 g/dL Hematocrit 51.2 H 36.0-46.0 % Mean Corpuscular Volume 86.3 80.0-100.0 fL Mean Corpuscular Hemoglobin 29.5 28.0-32.0 pg Mean Corpuscular Hemoglobin Concent 34.1 32.0-36.0 g/dL Red Cell Distribution Width 15.4 H 11.8-14.3 % Platelet Count 264 140-450 10^3/uL Mean Platelet Volume 7.5 6.9-10.8 fL Neutrophils (%) (Auto) 49.5 37.0-80.0 % Lymphocytes (%) (Auto) 39.6 10.0-50.0 % Monocytes (%) (Auto) 8.6 0.0-12.0 % Eosinophils (%) (Auto) 1.9 0.0-7.0 % Basophils (%) (Auto) 0.4 0.0-2.0 % Neutrophils # (Auto) 5.6 1.6-8.6 10 ^3/uL Lymphocytes # (Auto) 4.4 0.4-5.4 10 ^3/uL Monocytes # (Auto) 1.0 0-1.3 10 ^3/uL Eosinophils # (Auto) 0.2 0-0.8 10 ^3/uL Basophils # (Auto) 0 0-0.2 10 ^3/uL Nucleated Red Blood Cells 1.4 % Sodium Level 143 136-145 mmol/L Potassium Level 4.7 3.5-5.1 mmol/L Chloride Level 110 H 98-107 mmol/L Carbon Dioxide Level 21 20-31 mmol/L Anion Gap 12 5-15 Blood Urea Nitrogen 14 9-23 mg/dL Creatinine 1.13 H 0.550-1.02 mg/dL Glomerular Filtration Rate Calc 54 >90 mL/min BUN/Creatinine Ratio 12.4 10.0-20.0 Serum Glucose 96 74-106 mg/dL Lactic Acid Level 3.8 *H 0.4-2.0 mmol/L Calcium Level 11.3 H 8.7-10.4 mg/dL Lipase 39 12-53 U/L Thyroid Stimulating Hormone (TSH) 2.97 0.55-4.78 uIU/mL Current Medications Medications (Trade) Dose Ordered Sig/Mindy Route Start Time Stop Time Status Last Admin Sodium Chloride 2,000 ml @ 1,000 mls/hr Q2H ONCE IV 09/26/24 21:00 09/26/24 22:59 DC 09/26/24 21:51 Ondansetron HCl (Zofran) 4 mg ONCE ONCE IV 09/26/24 21:00 09/26/24 21:01 DC 09/26/24 21:52 Cefepime HCl 50 ml @ 12.5 mls/hr ONCE ONCE IV 09/26/24 21:00 09/27/24 00:59 09/27/24 00:41 Morphine Sulfate 4 mg ONCE ONCE IV 09/26/24 21:00 09/26/24 21:01 DC 09/26/24 21:53 Vancomycin HCl 200 ml @ 200 mls/hr ONCE ONCE IV 09/26/24 21:30 09/26/24 22:29 DC 09/26/24 21:51 X-Ray, Labs, Meds, VS Comment 64-year-old female with history of indwelling suprapubic catheter in recent UTI complaining of suprapubic pain, dysuria and chills Vitals remarkable for heart rate 118, respiratory rate 24, blood pressure 155/81 Exam remarkable for suprapubic tenderness and yellow discharge from around the suprapubic catheter insertion site Rhythm strip independently interpreted by me: Sinus tach, rate 118, no ectopy. CBC remarkable for WBC 11.2, hemoglobin 17.5, hematocrit 51.2, metabolic panel remarkable for creatinine 1.13, lactic 3.8, 1.1 on repeat Patient treated with the following in the ED: 2 L 0.9 normal saline IV bolus, cefepime 1 g IV, vancomycin 1 g IV, morphine 4 mg IV, Zofran 4 mg IV On re-evaluation, patient states pain has improved. Vitals are stable. Plan is to admit the patient for IV antibiotics Time of 1ST Reevaluation: 21:40 Reevaluation 1ST: Unchanged Time of 2ND Reevaluation: 22:40 Reevaluation 2ND: Improved Patient Education/Counseling: Diagnosis, Treatment Family Education/Counseling: No Family Present Sepsis Sepsis Reasesment Focused Exam Sepsis focused exam: focus exam completed, time: (2100) Orders: Laboratory Tests 09/26/24 20:59: Lactic Acid Level 3.8 Sepsis Date: Sep 26, 2024 Time recognized/suspected: 21:00 Recent Procedure: No On Antibiotic Therapy: Yes Respiratory Rate >20: Yes Heart Rate >90: Yes Temp<36 C (96.8 F) or >38.3 C: No SBP <90 or MAP <65 mmHG: No New Acute Mental Status Change: No Is the patient on CPAP, BIPAP,: No IV fluid given: Yes Departure 1 Departure Time of Disposition: 21:00 Impression: Primary Impression: UTI (urinary tract infection) Qualified Codes: T83.511A - Infection and inflammatory reaction due to indwelling urethral catheter, initial encounter; N39.0 - Urinary tract infection, site not specified Additional Impression: Sepsis Qualified Codes: A41.9 - Sepsis, unspecified organism Disposition: ADMITTED INPATIENT Admit to: Tele Condition: Guarded Critical Care Note Critical Care Time?: No Stability Stability form required: No Heart Score Heart Score: Heart Score Response (Comments) Value History N/A 0 EKG N/A 0 Age N/A 0 Risk Factors N/A 0 Troponin N/A 0 Total 0 I personally scribed for SONYA WATSON MD ([facility]) on 09/26/24 at 21:09. Electronically submitted by [place] MANCINI). SONYA WATOSN MD Sep 26, 2024 21:09
[2024-09-26 21:11] LABS: Eosinophils # (auto) 0.2 10 ^3/uL (0-0.8)
[2024-09-26 21:12] LABS: Basophils # (auto) 0 10 ^3/uL (0-0.2); Basophils % (auto) 0.4 % (0.0-2.0); Eosinophils % (auto) 1.9 % (0.0-7.0); Hematocrit 51.2 % (36.0-46.0); Hemoglobin 17.5 g/dL (12.2-16.2); Lymphocytes # (auto) 4.4 10 ^3/uL (0.4-5.4); Lymphocytes % (auto) 39.6 % (10.0-50.0); Mean Corpuscular Hemoglobin 29.5 pg (28.0-32.0); Mean Corpuscular Hgb Conc. 34.1 g/dL (32.0-36.0); Mean Corpuscular Volume 86.3 fL (80.0-100.0); Monocytes % (auto) 8.6 % (0.0-12.0); Neutrophils # (auto) 5.6 10 ^3/uL (1.6-8.6); Neutrophils % (auto) 49.5 % (37.0-80.0); Nucleated Red Blood Cells % 1.4 %; Platelet Count (auto) 264 10^3/uL (140-450); Red Blood Cells 5.92 10^6/uL (4.0-5.20); Red Cell Distribution Width 15.4 % (11.8-14.3); White Blood Cell 11.2 10^3/uL (4.4-10.8)
[2024-09-26 21:18] LABS: Potassium 4.7 mmol/L (3.5-5.1); Sodium 143 mmol/L (136-145)
[2024-09-26 21:22] LABS: Calcium 11.3 mg/dL (8.7-10.4); Chloride 110 mmol/L (98-107)
[2024-09-26 21:24] LABS: Glucose 96 mg/dL (74-106)
[2024-09-26 21:25] LABS: BUN/Creatinine Ratio 12.4 (10.0-20.0); Blood Urea Nitrogen 14 mg/dL (9-23)
[2024-09-26 21:35] LABS: Lactic Acid w/Reflex 3.8 mmol/L (0.4-2.0)
[2024-09-26 21:37] LABS: Anion Gap 12 (5-15); Carbon Dioxide 21 mmol/L (20-31)
[2024-09-26] MEDS: VANCOMYCIN 1GM/200ML PM 200 ML IV ONE ×2 (21:51→22:30)
[2024-09-26] MEDS: SODIUM CHLORIDE 0.9% 2,000 ML IV ONE (21:51)
[2024-09-26] MEDS: ONDANSETRON HCL 4 MG/2 ML VIAL IV ONE (21:52)
[2024-09-26] MEDS: MORPHINE SULFATE 4 MG/ML SYR/VIAL IV ONE (21:53)
--- NOTE | 2024-09-26 22:49 | DVHHPRES ---
History of Present Illness Resident Creating Document: DRE SLATER RESIDENT History of Present Illness This is a 64yr old Female medical history of neurogenic bladder, ataxia use walker, Hypothyroidism, pulmonary embolism status post suprapubic cystostomy ,recurrent UTI, mood disorder, right-handed tremor presented to the ED with a chief complaint of suprapubic pain, vaginal pain and leaking of urine through urethra since Friday prior to this admission. She mentioned that she has having fever, chills associated with intermittent leaking of urine through urethra and vaginal pain. Also mentioned that she has home health nurse, and her last catheter was changed in August 03, 2024 and she has also an upcoming appointment with Dr. Wolff for possible cystoscopy for recurrent UTI. She denied nausea, vomiting, altered bowel habit, positive sick contact or any recent traveling. Per prior notes, pt was admitted for UTI and discharged on 09/22 after course of IV antibiotic Zosyn. Patient states she has been taking p.o. Bactrim without any relief of her present symptoms. PCP: Dr. Araya Past Medical History Neurogenic bladder, ataxia use walker, Hypothyroidism, Pulmonary embolism ,recurrent UTI, mood disorder, right-handed tremor Past Surgical History None Family History Non contributory Past Social History Nonsmoker, nonalcoholic and never tried any drugs Lives alone and has caregiver Review of Systems Constitutional: Yes: Fever, Chills; No: Sweats, Weakness, Malaise, Other Eyes: No: Pain, Vision change, Conjunctivae inflammation, Eyelid inflammation, Other, Redness ENT: No: Ear pain, Ear discharge, Nose pain, Nose discharge, Nose congestion, Mouth pain, Mouth swelling, Throat pain, Throat swelling, Other Respiratory: No: Cough, Dry, Shortness of breath, SOB with excertion, Wheezing, Hemoptysis, Pleuritic Pain, Sputum, Wheezing, Other Cardiovascular: No: Chest Pain, Palpitations, Orthopnea, Paroxysmal Noc. Dyspnea, Edema, Lt Headedness, Other Gastrointestinal: Abdominal Pain; No: Nausea, Vomiting, Diarrhea, Constipation, Melena, Hematochezia, Other Genitourinary: Dysuria, Frequency, Incontinence Musculoskeletal: No: other, neck pain, shoulder pain, arm pain, back pain, hand pain, leg pain, foot pain Skin: No: Rash, Lesions, Jaundice, Bruising, Other Neurological: No: Weakness, Numbness, Incoordination, Change in speech, Confusion, Seizures, Other Allergies: Coded Allergies: NO KNOWN ALLERGIES (Unverified , 05/02/24) Medications Current Medications Medications Dose Ordered Sig/Mindy Route Start Time Stop Time Status Last Admin Dose Admin Vancomycin HCl 0 ml @ 0 mls/hr UD IV 09/26/24 21:00 UNV Exam Vital Signs Vital Signs Date Time Temp Pulse Resp B/P (MAP) Pulse Ox O2 Delivery O2 Flow Rate FiO2 09/26/24 21:53 120 20 145/83 09/26/24 20:56 98.0 97 98.0 Exam Physical examination: General Appearance: Wheel chair bound, Alert, Oriented X3, Cooperative, No acute distress HEENT: Atraumatic, PERRLA, EOMI, Mucous membrane moist/pink Respiratory: Clear to auscultation, Normal air movement Cardiovascular: Regular rate, Normal S1, Normal S2, No murmurs, no chest wall tenderness Abdominal: Normal bowel sounds, Soft, tenderness in the suprapubic region around the catheter, No hepatospenomegaly, No masses Extremities: No clubbing, No cyanosis, No edema, Normal pulses, No tenderness/swelling Skin: No rashes, No breakdown, No significant lesion Neuro: Rt handed tremor, Normal speech, Strength at 5/5 X4 ext, Normal tone, Sensation intact, Psych/Mental Status: Mental status NL, Mood NL Labs/Xrays Labs Test 09/26/24 20:59 Range/Units White Blood Count 11.2 H 4.4-10.8 10^3/uL Red Blood Count 5.92 H 4.0-5.20 10^6/uL Hemoglobin 17.5 H 12.2-16.2 g/dL Hematocrit 51.2 H 36.0-46.0 % Mean Corpuscular Volume 86.3 80.0-100.0 fL Mean Corpuscular Hemoglobin 29.5 28.0-32.0 pg Mean Corpuscular Hemoglobin Concent 34.1 32.0-36.0 g/dL Red Cell Distribution Width 15.4 H 11.8-14.3 % Platelet Count 264 140-450 10^3/uL Mean Platelet Volume 7.5 6.9-10.8 fL Neutrophils (%) (Auto) 49.5 37.0-80.0 % Lymphocytes (%) (Auto) 39.6 10.0-50.0 % Monocytes (%) (Auto) 8.6 0.0-12.0 % Eosinophils (%) (Auto) 1.9 0.0-7.0 % Basophils (%) (Auto) 0.4 0.0-2.0 % Neutrophils # (Auto) 5.6 1.6-8.6 10 ^3/uL Lymphocytes # (Auto) 4.4 0.4-5.4 10 ^3/uL Monocytes # (Auto) 1.0 0-1.3 10 ^3/uL Eosinophils # (Auto) 0.2 0-0.8 10 ^3/uL Basophils # (Auto) 0 0-0.2 10 ^3/uL Nucleated Red Blood Cells 1.4 % Sodium Level 143 136-145 mmol/L Potassium Level 4.7 3.5-5.1 mmol/L Chloride Level 110 H 98-107 mmol/L Carbon Dioxide Level 21 20-31 mmol/L Anion Gap 12 5-15 Blood Urea Nitrogen 14 9-23 mg/dL Creatinine 1.13 H 0.550-1.02 mg/dL Glomerular Filtration Rate Calc 54 >90 mL/min BUN/Creatinine Ratio 12.4 10.0-20.0 Serum Glucose 96 74-106 mg/dL Lactic Acid Level 3.8 *H 0.4-2.0 mmol/L Calcium Level 11.3 H 8.7-10.4 mg/dL Assessment/Plan Assessment/Plan Assessment and plan: # Sepsis secondary to UTI # Acute complicated UTI # History of recurrent UTI # S/P suprapubic cystostomy due to neurogenic bladder # Lactic acidosis likely due to sepsis - Given 2 L IV bolus - Pending blood culture, urine bacterial culture - U/A consistent with UTI - IV vancomycin as per pharmacy, IV meropenem 1 g Q 8 hours - Patient has scheduled appointment with urologist Dr. Fry on 10/04/2024 # JOHANNY likely hemodynamically mediated/VMN # Hypercalcemia and hemoconcentration likely due to dehydration - IV normal saline at 75 mL/hour - Monitor BMP # History of pulmonary embolism - continue Eliquis 5 mg b.i.d. # of hypothyroidism - levothyroxine 25 mcg at q.a.m. # History of bipolar disorder/mood disorder - continue home meds # Opioids and methamphetamine abuse disorder - counseled patient regarding methamphetamine abuse and rehabilitation. # PUD prophylaxis - Protonix 40 mg po daily # DVT prophylaxis - Patient is on Eliquis Goal of care discussed with the patient for more than 20 minutes full code Plan discussed with Dr. Duff Plan discussed with: Patient, Other (RN) Date of Service: Sep 26, 2024 Billing Provider: EMMY DUFF MD Common Visit Codes: 56235-PAHCHFT INP/OBS CARE (HIGH) Secondary Visit Codes: 87604-[id number] CARE PLAN 30 MINUTES DRE SLATER RESIDENT Sep 26, 2024 22:49 EMMY DUFF MD Sep 27, 2024 21:48
[2024-09-26] MEDS ORDERED: ACETAMINOPHEN 325 MG TAB PO PRN (23:00)
[2024-09-27 00:22] LABS: Urine Bacteria MANY /hpf (None Seen); Urine Blood 1+ /uL (Negative); Urine Budding Yeast MANY /hpf (None Seen); Urine Clarity Ex.Turbid (Clear); Urine Color Light-Brown (Yellow); Urine Hyaline Cast FEW /lpf (0 - 2); Urine Mucus FEW (None Seen); Urine Protein, UAD 2+ (Negative); Urine Squamous Epithelial Cell None Seen /hpf (<5); Urine Urobilinogen Normal (Negative); Urine WBC 794 /HPF (0-5); Urine WBC Clumps PRESENT /hpf (None Seen); Urine pH 6.5 (5.0-9.0)
[2024-09-27] MEDS: CEFEPIME 1GM/ 50ML 50 ML IV ONE (00:41)
[2024-09-27 01:40] LABS: Amphetamine Screen, Urine Pos (NEGATIVE); Barbiturate Scree,Urine Neg (NEGATIVE); Benzodiazephine Screen, Urine Neg (NEGATIVE); Cannabinoid Screen, Urine Neg (NEGATIVE); Cocaine Screen, Urine Neg (NEGATIVE); Opiate Scree,Urine Pos (NEGATIVE); Phencyclidine Screen, Urine Neg (NEGATIVE)
[2024-09-27] MEDS: SODIUM CHLORIDE 0.9% 1,000 ML IV SCH (04:36)
[2024-09-27 05:52] LABS: Basophils # (auto) 0 10 ^3/uL (0-0.2); Basophils % (auto) 0.5 % (0.0-2.0); Eosinophils # (auto) 0.1 10 ^3/uL (0-0.8); Eosinophils % (auto) 1.8 % (0.0-7.0); Hemoglobin 15.3 g/dL (12.2-16.2); Lymphocytes # (auto) 2.8 10 ^3/uL (0.4-5.4); Lymphocytes % (auto) 36.9 % (10.0-50.0); Mean Corpuscular Hemoglobin 29.4 pg (28.0-32.0); Mean Corpuscular Hgb Conc. 34.1 g/dL (32.0-36.0); Mean Corpuscular Volume 86.1 fL (80.0-100.0); Monocytes # (auto) 0.5 10 ^3/uL (0-1.3); Monocytes % (auto) 6.8 % (0.0-12.0); Nucleated Red Blood Cells % 0.1 %; Platelet Count (auto) 205 10^3/uL (140-450); Red Blood Cells 5.23 10^6/uL (4.0-5.20); Red Cell Distribution Width 15.2 % (11.8-14.3); White Blood Cell 7.5 10^3/uL (4.4-10.8)
[2024-09-27 05:53] LABS: Potassium 3.9 mmol/L (3.5-5.1); Sodium 143 mmol/L (136-145)
[2024-09-27 05:54] LABS: Anion Gap 10 (5-15); Calcium 10.2 mg/dL (8.7-10.4); Carbon Dioxide 22 mmol/L (20-31)
[2024-09-27 05:59] LABS: BUN/Creatinine Ratio 15.6 (10.0-20.0); Blood Urea Nitrogen 15 mg/dL (9-23); Glucose 97 mg/dL (74-106)
[2024-09-27] MEDS: MORPHINE SULFATE 4 MG/ML SYR/VIAL ONE (06:03)
[2024-09-27 06:08] LABS: Chloride 111 mmol/L (98-107)
[2024-09-27] MEDS: risperiDONE 1 MG TAB PO SCH ×2 (06:09→17:34)
[2024-09-27] MEDS: LEVOTHYROXINE SODIUM 25 MCG TAB PO SCH (06:09)
[2024-09-27] MEDS: PANTOPRAZOLE 40 MG TAB PO SCH (06:09)
[2024-09-27] MEDS: ONDANSETRON HCL 4 MG/2 ML VIAL IV PRN (06:10)
[2024-09-27] MEDS: MORPHINE SULFATE INJ 2 MG/ml SYRG IV PRN (06:11)
--- NOTE | 2024-09-27 06:25 | DVH ---
EXAM: XR Chest, 1 View CLINICAL INDICATION: Hypoxia TECHNIQUE: Frontal view of the chest. COMPARISON: XY CHEST PORTABLE on DOS: 09/16/24, XY CHEST PORTABLE on DOS: 04/30/24, XY CHEST PORTABLE on DOS: 03/31/23, CHEST PORTABLE on DOS: 06/05/22, CXRP on DOS: 06/05/22 FINDINGS: LUNGS AND PLEURAL SPACES: Unremarkable. No consolidation. No pneumothorax. HEART: Unremarkable. No cardiomegaly. MEDIASTINUM: Unremarkable. Normal mediastinal contour. BONES/JOINTS: Unremarkable. No acute fracture. OTHER FINDINGS: . IMPRESSION: No acute cardiopulmonary process.
[2024-09-27 07:54] VITALS: BP 149/85; PULSE 99; RESP 18; TEMP 97.3; O2SAT 100
[2024-09-27 08:06] VITALS: PULSE 99; RESP 18; O2SAT 100
[2024-09-27] MEDS: APIXABAN 5 MG TAB PO SCH (09:20)
[2024-09-27] MEDS: MEROPENEM 1GM IVPB 50 ML IV SCH (09:20)
--- NOTE | 2024-09-27 10:33 | DVHPNRES ---
Progress Note Date Seen: Sep 27, 2024 Resident Creating Document: ALMA CLINE RESIDENT Has the PT tested + for MRSA If YES, has PT been informed?: No Medical Necessity Reason Pt with a Central, PICC or Fol: No Subjective Review of Systems This is a 64yr old Female medical history of neurogenic bladder, ataxia use walker, Hypothyroidism, pulmonary embolism status post suprapubic cystostomy ,recurrent UTI, mood disorder, right-handed tremor presented to the ED with a chief complaint of suprapubic pain, vaginal pain and leaking of urine through urethra since Friday prior to this admission. She mentioned that she has having fever, chills associated with intermittent leaking of urine through urethra and vaginal pain. Also mentioned that she has home health nurse, and her last catheter was changed in August 03, 2024 and she has also an upcoming appointment with Dr. Wolff for possible cystoscopy for recurrent UTI. She denied nausea, vomiting, altered bowel habit, positive sick contact or any recent traveling. Per prior notes, pt was admitted for UTI and discharged on 09/22 after course of IV antibiotic Zosyn. Patient states she has been taking p.o. Bactrim without any relief of her present symptoms. PCP: Dr. Griggs Past Medical History Neurogenic bladder, ataxia use walker, Hypothyroidism, Pulmonary embolism ,recurrent UTI, mood disorder, right-handed tremor Past Surgical History None Family History Non contributory Past Social History Nonsmoker, nonalcoholic and never tried any drugs Lives alone and has caregiver Objective vital signs Vital Sign Date Time Temp Pulse Resp B/P (MAP) Pulse Ox O2 Delivery O2 Flow Rate FiO2 09/27/24 07:54 97.3 99 18 149/85 (106) 100 97.3 medications Current Medications Medications Dose Ordered Sig/Mindy Route Start Time Stop Time Status Last Admin Dose Admin Vancomycin HCl 0 ml @ 0 mls/hr UD IV 09/26/24 21:00 Meropenem 50 ml @ 17 mls/hr Q12HR IV 09/27/24 10:00 09/27/24 09:20 17 MLS/HR Acetaminophen 650 mg Q6HPRN PRN PO 09/26/24 23:00 Apixaban 5 mg BID PO 09/27/24 10:00 Pantoprazole Sodium 40 mg DAILY@0600 PO 09/27/24 06:00 09/27/24 06:09 40 MG Levothyroxine Sodium 25 mcg QAM PO 09/27/24 07:00 09/27/24 06:09 25 MCG Risperidone 1 mg QAM PO 09/27/24 07:00 09/27/24 06:09 1 MG Risperidone 2 mg QPM PO 09/27/24 18:00 Trazodone HCl 100 mg HS PO 09/27/24 22:00 Sodium Chloride 1,000 ml @ 75 mls/hr [id number] IV 09/27/24 04:30 09/27/24 09:21 75 MLS/HR Morphine Sulfate 1 mg Q4HR PRN IV 09/27/24 06:00 09/27/24 06:11 1 MG Ondansetron HCl 4 mg Q8HP PRN IV 09/27/24 06:00 09/27/24 06:10 4 MG Vancomycin HCl 200 ml @ 160 mls/hr Q24H IV 09/27/24 22:00 Examination General Appearance: Wheel chair bound, Alert, Oriented X3, Cooperative, No acute distress HEENT: Atraumatic, PERRLA, EOMI, Mucous membrane moist/pink Respiratory: Clear to auscultation, Normal air movement Cardiovascular: Regular rate, Normal S1, Normal S2, No murmurs, no chest wall tenderness Abdominal: Normal bowel sounds, Soft, tenderness in the suprapubic region around the catheter, No hepatospenomegaly, No masses Extremities: No clubbing, No cyanosis, No edema, Normal pulses, No tenderness/swelling Skin: No rashes, No breakdown, No significant lesion Neuro: Rt handed tremor, Normal speech, Strength at 5/5 X4 ext, Normal tone, Sensation intact, Psych/Mental Status: Mental status NL, Mood NL laboratory and microbiology Laboratory Tests 09/27/24 05:23 Test 09/27/24 05:23 Range/Units Serum Glucose 97 74-106 mg/dL Problem List/Assessment/Plan Problem List/Assessment/Plan # Sepsis secondary to UTI # Acute complicated UTI # History of recurrent UTI # S/P suprapubic cystostomy due to neurogenic bladder # Lactic acidosis likely due to sepsis - Given 2 L IV bolus - Pending blood culture, urine bacterial culture - U/A consistent with UTI - IV vancomycin as per pharmacy, IV meropenem 1 g Q 8 hours - Patient has scheduled appointment with urologist Dr. Wolff on 10/04/2024 - IV fluconazole - Estrogen vaginal cream # JOHANNY likely hemodynamically mediated/VMN # Hypercalcemia and hemoconcentration likely due to dehydration - IV NS at 75 mL/hour - Monitor BMP # History of pulmonary embolism - continue Eliquis 5 mg b.i.d. # Hypothyroidism - levothyroxine 25 mcg at q.a.m. # History of bipolar disorder/mood disorder - continue home meds # Opioids and methamphetamine abuse disorder - counseled patient regarding methamphetamine abuse and rehabilitation. # PUD prophylaxis - Protonix 40 mg po daily # DVT prophylaxis - Patient is on Eliquis Goal of care discussed with the patient for more than 20 minutes full code Plan discussed with Dr. Calderon Plan discussed with: Patient, Other (rn) Date of Service: Sep 27, 2024 Billing Provider: RAE CALDERON MD Common Visit Codes: [id number] INP/OBS CARE(HIGH) ALMA CLINE RESIDENT Sep 27, 2024 10:33 RAE CALDERON MD Sep 28, 2024 09:15
[2024-09-27 13:00] VITALS: BP 108/63; PULSE 97; RESP 18; TEMP 97.1; O2SAT 97
[2024-09-27] MEDS: FLUCONAZOLE 200MG/100ML 100 ML IV SCH (15:50)
[2024-09-27] MEDS: CONJ ESTROGENS 0.625MG/GM VAG CRM 30GM PV SCH (15:50)
[2024-09-27 16:33] VITALS: BP 132/61; PULSE 92; RESP 18; TEMP 97.3; O2SAT 99
[2024-09-27 20:00] VITALS: PULSE 97; RESP 18; O2SAT 96
[2024-09-27 21:00] VITALS: BP 127/77; PULSE 97; RESP 18; TEMP 97.5; O2SAT 96
[2024-09-27] MEDS: VANCOMYCIN 1GM/200ML PM 200 ML IV SCH (21:40)
[2024-09-27] MEDS: traZODone HCL 50 MG TAB PO SCH (21:41)
[2024-09-28 04:52] VITALS: BP 115/71; PULSE 94; RESP 18; TEMP 98.2; O2SAT 98
[2024-09-28 05:23] LABS: Basophils # (auto) 0.1 10 ^3/uL (0-0.2); Basophils % (auto) 0.9 % (0.0-2.0); Eosinophils # (auto) 0.3 10 ^3/uL (0-0.8); Eosinophils % (auto) 4.9 % (0.0-7.0); Hematocrit 43.9 % (36.0-46.0); Hemoglobin 14.8 g/dL (12.2-16.2); Lymphocytes # (auto) 2.5 10 ^3/uL (0.4-5.4); Lymphocytes % (auto) 40.4 % (10.0-50.0); Mean Corpuscular Hemoglobin 29.6 pg (28.0-32.0); Mean Corpuscular Hgb Conc. 33.8 g/dL (32.0-36.0); Mean Corpuscular Volume 87.6 fL (80.0-100.0); Monocytes # (auto) 0.6 10 ^3/uL (0-1.3); Monocytes % (auto) 9.4 % (0.0-12.0); Neutrophils # (auto) 2.8 10 ^3/uL (1.6-8.6); Neutrophils % (auto) 44.4 % (37.0-80.0); Nucleated Red Blood Cells % 0.1 %; Platelet Count (auto) 188 10^3/uL (140-450); Red Blood Cells 5.01 10^6/uL (4.0-5.20); Red Cell Distribution Width 15.3 % (11.8-14.3); White Blood Cell 6.2 10^3/uL (4.4-10.8)
[2024-09-28 05:36] LABS: Alanine Aminotransferase 12 U/L (7-40); Albumin 3.9 g/dL (3.2-4.8); Alkaline Phosphatase 62 U/L (46-116); Anion Gap 9 (5-15); Aspartate Aminotransferase 9 U/L (13-40); BUN/Creatinine Ratio 12.8 (10.0-20.0); Bilirubin, Total 0.7 mg/dL (0.2-1.0); Blood Urea Nitrogen 11 mg/dL (9-23); Calcium 9.2 mg/dL (8.7-10.4); Carbon Dioxide 22 mmol/L (20-31); Chloride 110 mmol/L (98-107); Glucose 110 mg/dL (74-106); Potassium 3.8 mmol/L (3.5-5.1); Sodium 141 mmol/L (136-145); Total Protein 6.1 g/dL (5.7-8.2)
[2024-09-28 08:00] VITALS: RESP 16
[2024-09-28 09:00] VITALS: BP 113/54; PULSE 93; RESP 18; TEMP 97.5; O2SAT 97
--- NOTE | 2024-09-28 11:14 | DVHDSRES ---
Discharge Summary Date of Admission Resident Creating Document: ALMA CLINE RESIDENT Sep 26, 2024 at 22:44 Date of Discharge: Sep 28, 2024 Admitting Diagnosis # Sepsis secondary to UTI Labs/Diagnostic Data: Laboratory Results Test 09/28/24 04:57 09/27/24 00:00 09/26/24 23:13 09/26/24 20:59 White Blood Count 6.2 10^3/uL (4.4-10.8) Red Blood Count 5.01 10^6/uL (4.0-5.20) Hemoglobin 14.8 g/dL (12.2-16.2) Hematocrit 43.9 % (36.0-46.0) Mean Corpuscular Volume 87.6 fL (80.0-100.0) Mean Corpuscular Hemoglobin 29.6 pg (28.0-32.0) Mean Corpuscular Hemoglobin Concent 33.8 g/dL (32.0-36.0) Red Cell Distribution Width 15.3 % (11.8-14.3) Platelet Count 188 10^3/uL (140-450) Mean Platelet Volume 7.3 fL (6.9-10.8) Neutrophils (%) (Auto) 44.4 % (37.0-80.0) Lymphocytes (%) (Auto) 40.4 % (10.0-50.0) Monocytes (%) (Auto) 9.4 % (0.0-12.0) Eosinophils (%) (Auto) 4.9 % (0.0-7.0) Basophils (%) (Auto) 0.9 % (0.0-2.0) Neutrophils # (Auto) 2.8 10 ^3/uL (1.6-8.6) Lymphocytes # (Auto) 2.5 10 ^3/uL (0.4-5.4) Monocytes # (Auto) 0.6 10 ^3/uL (0-1.3) Eosinophils # (Auto) 0.3 10 ^3/uL (0-0.8) Basophils # (Auto) 0.1 10 ^3/uL (0-0.2) Nucleated Red Blood Cells 0.1 % Sodium Level 141 mmol/L (136-145) Potassium Level 3.8 mmol/L (3.5-5.1) Chloride Level 110 mmol/L (98-107) Carbon Dioxide Level 22 mmol/L (20-31) Anion Gap 9 (5-15) Blood Urea Nitrogen 11 mg/dL (9-23) Creatinine 0.86 mg/dL (0.550-1.02) Glomerular Filtration Rate Calc 75 mL/min (>90) BUN/Creatinine Ratio 12.8 (10.0-20.0) Serum Glucose 110 mg/dL (74-106) Calcium Level 9.2 mg/dL (8.7-10.4) Total Bilirubin 0.7 mg/dL (0.2-1.0) Aspartate Amino Transferase (AST) 9 U/L (13-40) Alanine Aminotransferase (ALT) 12 U/L (7-40) Alkaline Phosphatase 62 U/L (46-116) Total Protein 6.1 g/dL (5.7-8.2) Albumin 3.9 g/dL (3.2-4.8) Urine Color Light-brown (Yellow) Urine Clarity Ex.turbid (Clear) Urine pH 6.5 (5.0-9.0) Urine Specific [place] 1.020 (1.001-1.035) Urine Protein 2+ (Negative) Urine Ketones 1+ (Negative) Urine Blood 1+ /uL (Negative) Urine Nitrite 2+ (Negative) Urine Bilirubin Negative (Negative) Urine Urobilinogen Normal mg/dL (Negative) Urine Leukocyte Esterase 3+ /uL (Negative) Urine RBC 13 /hpf (0 - 4) Urine WBC Clumps Present /hpf (None Seen) Urine Microscopic WBC 794 /HPF (0-5) Urine Squamous Epithelial Cells None seen /hpf (<5) Urine Bacteria Many /hpf (None Seen) Urine Hyaline Casts Few /lpf (0 - 2) Urine Mucus Few (None Seen) Urine Yeast (Budding) Many /hpf (None Seen) Urine Glucose Normal mg/dL (Normal) Urine Opiates Screen Pos (NEGATIVE) Urine Fentanyl Screen Neg (NEGATIVE) Urine Barbiturates Screen Neg (NEGATIVE) Urine Phencyclidine Screen Neg (NEGATIVE) Urine Amphetamines Screen Pos (NEGATIVE) Urine Benzodiazepines Screen Neg (NEGATIVE) Urine Cocaine Screen Neg (NEGATIVE) Urine Cannabinoids Screen Neg (NEGATIVE) Lactic Acid Level 1.1 mmol/L (0.4-2.0) Lipase 39 U/L (12-53) Thyroid Stimulating Hormone (TSH) 2.97 uIU/mL (0.55-4.78) Other Laboratory Tests 09/28/24 04:57 Brief Hx & Hospital Course: This is a 64-year-old female with PMHx of neurogenic bladder s/p suprapubic cystostomy, hypothyroidism, history of recurrent UTIs, mood disorder, right-hand tremor, and prior pulmonary embolism on Eliquis. She was admitted with suprapubic and vaginal pain, fever, and chills with foul-smelling urine. UA was consistent with UTI; blood and urine cultures were obtained. She was started on IV vancomycin and IV meropenem. Given her recurrent UTIs and suprapubic catheter, she was also started on fluconazole and estrogen vaginal cream for suspected fungal component. She was admitted for acute complicated UTI with secondary sepsis. Lactic acidosis was noted, likely secondary to sepsis. Renal function showed evidence of JOHANNY likely secondary to dehydration and sepsis, were managed with IV fluids and resolved Psych history included bipolar disorder; her home psych meds were continued. She was counseled regarding methamphetamine abuse, as per history. Anticoagulation with Eliquis was continued due to PE history, and Protonix was used for GI prophylaxis. She has a follow-up appointment scheduled with urology (Dr. Wolff) on 10/04/2024 for evaluation of recurrent UTI and suprapubic catheter management. Discharge Plan: Discharged home with home health for suprapubic catheter care Continue Bactrim for UTI treatment (total of 21 days) Continue fluconazole as prescribed Continue estrogen vaginal cream Follow up with PCP in1 week Resume home medications including Eliquis, levothyroxine, risperidone, pantoprazole Case discussed with Dr Nelson Full code Operations or Procedures EXAM: XR Chest, 1 View CLINICAL INDICATION: Hypoxia TECHNIQUE: Frontal view of the chest. COMPARISON: XY CHEST PORTABLE on DOS: 09/16/24, XY CHEST PORTABLE on DOS: 04/30/24, XY CHEST PORTABLE on DOS: 03/31/23, CHEST PORTABLE on DOS: 06/05/22, CXRP on DOS: 06/05/22 FINDINGS: LUNGS AND PLEURAL SPACES: Unremarkable. No consolidation. No pneumothorax. HEART: Unremarkable. No cardiomegaly. MEDIASTINUM: Unremarkable. Normal mediastinal contour. BONES/JOINTS: Unremarkable. No acute fracture. OTHER FINDINGS: . IMPRESSION: No acute cardiopulmonary process. Condition at Discharge: Stable Final Diagnosis/Problems List # Sepsis secondary to UTI # Acute complicated UTI # History of recurrent UTI # S/P suprapubic cystostomy due to neurogenic bladder # Lactic acidosis likely due to sepsis # JOHANNY likely hemodynamically mediated/VMN # Hypercalcemia and hemoconcentration likely due to dehydration # History of pulmonary embolism # Hypothyroidism # History of bipolar disorder/mood disorder # Opioids and methamphetamine abuse disorder Discharge Disposition: Home Discharge Instruct/Medications Diet: Consistent carbohydrate, Cardiac 2g Na,low cholest Activity: No Restrictions, As Tolerated Follow Up/Referral: dc clinic 1 week Medications: see prescription Discharge Statement: "Patient was advised to return to the ER or call 911 if any headaches, dizziness, shortness of breath, chest pain, abdominal pain, bleeding, fevers, or worsening of medical condition. Patient was counseled about treatment plan, medications, possible side effects, patientverbalized understanding. All questions were answered to the best of my ability. This discharge took greater then 30 minutes in planning, reviewing documentation, counseling the patient, and discussing with other team members." ASSESSMENT ASSESSMENT Assessment Sepsis due to UTI Date of Service: Sep 28, 2024 Billing Provider: RAE NELSON MD Common Visit Codes: 73813-EZS/[id number] DISCH DAY >30min ALMA CLINE RESIDENT Sep 28, 2024 11:14 RAE NELSON MD Sep 29, 2024 11:18
[2024-09-28] MEDS ORDERED: FLUC200T50 PO (11:45)
[2024-09-28] MEDS ORDERED: ESTRGEL TD (11:45)
[2024-09-28] MEDS ORDERED: SULF800T23 PO (11:45)
[2024-09-28] MEDS ORDERED: ACET-1079 PO (11:45)
[2024-09-28 13:00] VITALS: BP 116/63; PULSE 92; RESP 17; TEMP 97.7; O2SAT 97
== END 2024-09-28 15:30 | disposition home or self-care (01) | DRG 466 ==
LOC: ER 20:02 → OVERFLOW 22:44 → EAST 09-27 08:09
PROVIDERS: ADMIT Student in an Organized Health Care Education/Training Program; ATTEND Internal Medicine
DX: T83.511A Infection and inflammatory reaction due to indwelling urethral catheter, initial encounter (principal); N17.0 Acute kidney failure with tubular necrosis; A41.9 Sepsis, unspecified organism; E87.20 Acidosis, unspecified; F32.A Depression, unspecified; F41.9 Anxiety disorder, unspecified; Y84.6 Urinary catheterization as the cause of abnormal reaction of the patient, or of later complication, without mention of misadventure at the time of the procedure; E86.0 Dehydration; E03.9 Hypothyroidism, unspecified; F11.10 Opioid abuse, uncomplicated; F15.10 Other stimulant abuse, uncomplicated; E83.52 Hypercalcemia; Z86.711 Personal history of pulmonary embolism; Z79.01 Long term (current) use of anticoagulants; Z79.899 Other long term (current) drug therapy
CPT/HCPCS: 36415; 71045; 80048; 80053; 80307; 81001; 83605; 83690; 84443; 85025; 87040; 87081; 87086; 87088; 87186; 96365; 96375; G0378; J1450; J2185; J2405

== ENCOUNTER 2024-11-14 11:01 | Emergency (ER) | payer MEDICAID ==
[~2024-11-14] VITALS: Ht 157.5 cm; Wt 78.0 kg
[~2024-11-14 11:01] MED LIST changes: +ACET-1079 PO; -BACDST PO; +ESTRGEL TD; +FLUC200T50 PO; +SULF800T23 PO
--- NOTE | 2024-11-14 11:47 | ED.PDOC ---
General HPI Comments 64 y.o female with PMHx of COPD, presents to the ED for a chief complaint of painful urination associated with lower back pain radiating to BL flank regions x 2 days. Patient has a suprapubic catheter in place x 4 years s/p cyst removal from spine, causing bladder and leg issues. Patient reports burning sensation when urinating but also states a pressure and sharpness with spasms to the urethra. Patient states pain is constant, worse today with no alleviating factors. Patient denies any fever, chills, nausea, vomiting, hematuria, or bloody stool. Time Seen by MD: 11:40 Primary Care Provider: ERICH Reviewed notes: Nurses Notes, Medications, Allergies Allergies: Coded Allergies: NO KNOWN ALLERGIES (Unverified , 05/02/24) Home Meds Active Scripts Ciprofloxacin Hcl (Cipro) 500 Mg Tab, 1 TAB PO BID, #14 TAB Prov:RODRIGUEZ HERNÁNDEZ MD 11/14/24 Acetaminophen (Tylenol) 325 Mg Tb, 325 MG PO TID for 10 Days, #30 TAB Prov:ALMA CLINE 09/28/24 Fluconazole (Fluconazole) 200 Mg Tab, 200 MG PO DAILY for 14 Days, #14 TAB Prov:ALMA CLINE 09/28/24 Estradiol (Estrogel) 0.06 % Gel, 0.06 % TD TID for 10 Days, #2 GEL Prov:ALMA CLINE 09/28/24 Sulfamethoxazole W/Trimethopri (Trimethoprim/Sulfamethoxa) 1 Tab Tab, 1 TAB PO BID for 21 Days, #42 TAB Prov:ALMA CLINE 09/28/24 Albuterol Sulfate (VENTOLIN ROBSON) 90 Mcg Ih, 90 MCG IN Q4HR PRN, #1 INH Prov:LEENA MANZANARES MD 05/06/24 Apixaban Base (ELIQUIS) 5 Mg Tab, 10 MG PO BID for 7 Days, #14 TAB 10MG BID X 7 DAYS THEN 5MG PO BID FOR AT LEAST 6 MONTHS FOR DVT/PE TREATMENT Prov:LEENA MANZANARES MD 05/06/24 Apixaban Base (ELIQUIS) 5 Mg Tab, 5 MG PO BID, #180 TAB Prov:LEENA MANZANARES MD 05/06/24 Reported Medications Risperidone (Risperdal) 2 Mg Tab, 2 MG PO QPM, TAB 12/20/24 Hydrocodone-Acetaminophen (Hydrocodone Bitartrate/AC 10-325 mg) 1 Tab Tab, 1 TAB PO TIDP PRN for severe pain, TAB 05/03/23 Risperidone (Risperidone) 1 Mg Tab, 1 MG PO QAM, TAB 05/03/23 Cyclobenzaprine HCl (Cyclobenzaprine Hydrochlo) 10 Mg Tab, 1 TAB PO BID 06/07/22 Trazodone Hcl (Trazodone Hcl) 100 Mg Tab, 1 TAB PO HS 06/07/22 Levothyroxine Sodium (Levothyroxine Sodium) 25 Mcg Tab, 25 MCG PO QAM, MCG 07/18/20 Information Source: Patient Mode of Arrival: walker Severity: Moderate Timing: Days (2) Duration: Since onset Onset: Spontaneous Symptoms: Dysuria History of: Suprapubic catheter Modifying factors: None associated signs and symptoms: Flank Pain, Back Pain, Dysuria Past Medical History PAST MEDICAL HISTORY: Anxiety, COPD, Depression, Thyroid, UTI'S Surgical History (Other): Spinal cyst removal RN GYN History: No Pertinent RN GYN History Family History Family History: Family hx of DM, Family hx of Cancer Social History Smoker: Non-Smoker Alcohol: Occasionally Drugs: Marijuana Lives In: Home Constitutional: denies: chills, diaphoresis, fatigue, fever, malaise, sweats, weakness, others EENTM: denies: blurred vision, double vision, ear bleeding, ear discharge, ear drainage, ear pain, ear ringing, eye pain, eye redness, hearing loss, mouth pain, mouth swelling, nasal discharge, nose bleeding, nose congestion, nose pain, photophobia, tearing, throat pain, throat swelling, voice changes, others Respiratory: denies: cough, hemoptysis, orthopnea, SOB at rest, shortness of breath, SOB with excertion, stridor, wheezing, others Cardiovascular: denies: chest pain, dizzy spells, diaphoresis, Dyspnea on exertion, edema, irregular heart beat, left arm pain, lightheadedness, palpitations, PND, syncope, others Gastrointestinal: denies: abdomen distended, abdominal pain, blood streaked bowels, constipated, diarrhea, dysphagia, difficulty swallowing, hematemesis, melena, nausea, poor appetite, poor fluid intake, rectal bleeding, rectal pain, vomiting, others Genitourinary: reports: burning, dysuria, flank pain, pain; denies: abnormal vagina bleeding, dyspareunia, frequency, hematuria, incontinence, , vagina discharge, urgency, others Neurological: denies: dizziness, fainting, headache, left sided numbness, left sided weakness, numbness, paresthesia, pre-existing deficit, right sided numbness, right sided weakness, seizure, speech problems, tingling, tremors, weakness, others Musculoskeletal: reports: back pain; denies: gout, joint pain, joint swelling, muscle pain, muscle stiffness, neck pain, others Integumetry: denies: bruises, change in color, change in hair/nails, dryness, laceration, lesions, lumps, rash, wounds, others Allergic/Immunocompromised: denies: Difficulty Healing, Frequent Infections, Hives, Itching, others Hematologic/Lymphatic: denies: anemia, blood clots, easy bleeding, easy bruising, swollen glands, others Endocrine: denies: excessive hunger, excessive sweating, excessive thirst, excessive urination, flushing, intolerance to cold, intolerance to heat, unexplained weight gain, unexplained weight loss, others Psychiatric: denies: anxiety, bipolar disorder, depression, hopeless, panic disorder, schizophrenia, sleepless, suicidal, others All Other Systems: Reviewed and Negative Physical Exam General Appearance: Mild Distress HEENT: Normal ENT Inspection, Pharynx Normal, TMs Normal Neck: Full Range of Motion, Non-Tender, Normal, Normal Inspection Respiratory: Chest Non-Tender, Lungs Clear, No Accessory Muscle Use, No Respiratory Distress, Normal Breath Sounds Cardiovascular: No Edema, No JVD, No Murmur, No Gallop, Normal Peripheral Pulses, Regular Rate/Rhythm Breast Exam: Deferred Gastrointestinal: No Organomegaly, No Pulsatile Mass, Normal Bowel Sounds, Soft, Suprapubic, Tenderness Genitalia: Deferred Pelvic: Deferred Rectal: Deferred Extremities: No calf tenderness, Normal capillary refill, Normal inspection, Normal range of motion, Non-tender, No pedal edema Musculoskeletal : Apperance: Normal Neurologic: Alert, wharf tender head II-XII nml as Tested, No Motor Deficits, Normal Affect, Normal Mood, No Sensory Deficits Cerebellar Function: Normal Reflexes: Normal Skin: Dry, Normal Color, Warm Lymphatic: No Adenopathy Was a procedure done? Was a procedure done?: No Differential Diagnosis Kidney stone (Female): Musculoskeletal pain, Ovarian torsion, Pyelonephritis, Strain Urinary Problem (Female): PID, Pyelonephritis, UTI, Vaginitis X-Ray, Labs, Meds, VS Vital Signs Date Time Temp Pulse Resp B/P (MAP) Pulse Ox O2 Delivery O2 Flow Rate FiO2 11/14/24 11:01 97.0 80 14 109/59 (76) 95 97.0 Lab Test 11/14/24 11:49 11/14/24 11:00 Range/Units White Blood Count 5.2 4.4-10.8 10^3/uL Red Blood Count 4.81 4.0-5.20 10^6/uL Hemoglobin 14.4 12.2-16.2 g/dL Hematocrit 43.2 36.0-46.0 % Mean Corpuscular Volume 89.8 80.0-100.0 fL Mean Corpuscular Hemoglobin 30.0 28.0-32.0 pg Mean Corpuscular Hemoglobin Concent 33.4 32.0-36.0 g/dL Red Cell Distribution Width 15.0 H 11.8-14.3 % Platelet Count 228 140-450 10^3/uL Mean Platelet Volume 7.7 6.9-10.8 fL Neutrophils (%) (Auto) 39.8 37.0-80.0 % Lymphocytes (%) (Auto) 44.8 10.0-50.0 % Monocytes (%) (Auto) 10.8 0.0-12.0 % Eosinophils (%) (Auto) 3.5 0.0-7.0 % Basophils (%) (Auto) 1.1 0.0-2.0 % Neutrophils # (Auto) 2.1 1.6-8.6 10 ^3/uL Lymphocytes # (Auto) 2.3 0.4-5.4 10 ^3/uL Monocytes # (Auto) 0.6 0-1.3 10 ^3/uL Eosinophils # (Auto) 0.2 0-0.8 10 ^3/uL Basophils # (Auto) 0.1 0-0.2 10 ^3/uL Nucleated Red Blood Cells 0.2 % Sodium Level 144 136-145 mmol/L Potassium Level 4.2 3.5-5.1 mmol/L Chloride Level 109 H 98-107 mmol/L Carbon Dioxide Level 26 20-31 mmol/L Anion Gap 9 5-15 Blood Urea Nitrogen 23 9-23 mg/dL Creatinine 1.05 H 0.550-1.02 mg/dL Glomerular Filtration Rate Calc 59 >90 mL/min BUN/Creatinine Ratio 21.9 H 10.0-20.0 Serum Glucose 88 74-106 mg/dL Calcium Level 10.6 H 8.7-10.4 mg/dL Urine Color Yellow Yellow Urine Clarity Turbid H Clear Urine pH 5.0 5.0-9.0 Urine Specific [place] 1.025 1.001-1.035 Urine Protein Trace H Negative Urine Ketones Negative Negative Urine Blood Trace H Negative /uL Urine Nitrite 2+ H Negative Urine Bilirubin Negative Negative Urine Urobilinogen Normal Negative mg/dL Urine Leukocyte Esterase 3+ Negative /uL Urine RBC 14 0 - 4 /hpf Urine Microscopic WBC 88 H 0-5 /HPF Urine Squamous Epithelial Cells Few <5 /hpf Urine Calcium Oxalate Crystals Few None Seen Urine Bacteria Few H None Seen /hpf Urine Mucus Few None Seen Urine Glucose Normal Normal mg/dL The patient's CBC is within normal limits The chemistry panel is within normal limits The urine test is positive for UTI The patient was given a prescription of Cipro The patient will return to the emergency department's condition worsens Time of 1ST Reevaluation: 12:43 Reevaluation 1ST: Unchanged Patient Education/Counseling: Diagnosis, Treatment, Prognosis, Need For Follow Up Family Education/Counseling: No Family Present SEPSIS Sepsis Screen Vital Signs Date Time Temp Pulse Resp B/P (MAP) Pulse Ox O2 Delivery O2 Flow Rate FiO2 11/14/24 11:01 97.0 80 14 109/59 (76) 95 97.0 Laboratory Tests Test 11/14/24 11:49 White Blood Count 5.2 10^3/uL (4.4-10.8) Departure 1 Departure Time of Disposition: 13:36 Impression: Primary Impression: UTI (urinary tract infection) Qualified Codes: N30.00 - Acute cystitis without hematuria Disposition: 01 HOME / SELF CARE / HOMELESS Condition: Fair e-Prescriptions Ciprofloxacin Hcl (Cipro) 500 Mg Tab 1 TAB PO BID, #14 TAB Prov: RODRIGUEZ HERNÁNDEZ MD 11/14/24 Discharged With: Self Critical Care Note Critical Care Time?: No Stability Stability form required: No Heart Score Heart Score: Heart Score Response (Comments) Value History N/A 0 EKG N/A 0 Age N/A 0 Risk Factors N/A 0 Troponin N/A 0 Total 0 I personally scribed for RODRIGUEZ HERNÁNDEZ MD ([email or web address]) on 11/14/24 at 11:47. Electronically submitted by Nasrin Jordan ([facility]). RODRIGUEZ HERNÁNDEZ MD Nov 14, 2024 11:47
[2024-11-14 12:32] LABS: Hematocrit 43.2 % (36.0-46.0); Hemoglobin 14.4 g/dL (12.2-16.2); Mean Corpuscular Hemoglobin 30.0 pg (28.0-32.0); Mean Corpuscular Volume 89.8 fL (80.0-100.0); Nucleated Red Blood Cells % 0.2 %
[2024-11-14 12:33] LABS: Potassium 4.2 mmol/L (3.5-5.1); Sodium 144 mmol/L (136-145)
[2024-11-14 12:34] LABS: Anion Gap 9 (5-15); Carbon Dioxide 26 mmol/L (20-31)
[2024-11-14 12:39] LABS: BUN/Creatinine Ratio 21.9 (10.0-20.0); Glucose 88 mg/dL (74-106)
[2024-11-14 12:40] LABS: Blood Urea Nitrogen 23 mg/dL (9-23); Calcium 10.6 mg/dL (8.7-10.4); Chloride 109 mmol/L (98-107)
[2024-11-14 12:50] LABS: Urine Protein, UAD TRACE (Negative)
[2024-11-14] MEDS ORDERED: CIPR-173 PO (13:35)
[2024-11-14 14:22] VITALS: BP 127/74; PULSE 99; RESP 18; TEMP 98; O2SAT 100
== END 2024-11-14 14:34 | disposition home or self-care (01) ==
LOC: ER 11:01
DX: N39.0 Urinary tract infection, site not specified (principal); F12.90 Cannabis use, unspecified, uncomplicated; F10.90 Alcohol use, unspecified, uncomplicated; F41.9 Anxiety disorder, unspecified; J44.9 Chronic obstructive pulmonary disease, unspecified; F32.A Depression, unspecified; Z87.440 Personal history of urinary (tract) infections; Z79.899 Other long term (current) drug therapy; Z79.890 Hormone replacement therapy; Z79.01 Long term (current) use of anticoagulants; Y90.9 Presence of alcohol in blood, level not specified
CPT/HCPCS: 36415; 80048; 81001; 85025

== ENCOUNTER 2025-03-14 13:46 | Emergency (ER) | payer MEDICAID ==
[~2025-03-14] VITALS: Ht 167.6 cm; Wt 68.1 kg
[~2025-03-14 13:46] MED LIST changes: +CIPR-173 PO
[2025-03-14] MEDS: LORazepam 2MG/ML-1ML VIAL IM ONE (14:58)
[2025-03-14] MEDS ORDERED: CEPH500C PO (16:05)
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
[2025-03-14 16:36] VITALS: BP 140/74; PULSE 100; RESP 18; TEMP 98.5; O2SAT 100
== END 2025-03-14 18:41 | disposition home or self-care (01) ==
LOC: ER 13:46 → EDBD 13:46 → ER 18:41
DX: N39.0 Urinary tract infection, site not specified (principal); F41.9 Anxiety disorder, unspecified; J44.9 Chronic obstructive pulmonary disease, unspecified; Z79.899 Other long term (current) drug therapy
CPT/HCPCS: 96372; 99283; J2060